=== PATIENT | male | born 1945 | race African-American/Black ===

== ENCOUNTER 2017-09-07 18:23 | Inpatient (IN) | payer MEDICAID, MEDICARE, OTHER ==
[~2017-09-07] VITALS: Ht 165.1 cm; Wt 65.3 kg
[~2017-09-07 18:23] MED LIST: ASPIRIN EC81 MG PO; CRESTOR10 M2 ORAL; DETROL LA2 MG PO; FOLIC ACID1 MG ORAL; ISENTRESS400 MG ORAL; LISINOPRIL10 MG ORAL; LORAZEPAM0.5 MG ORAL; MAGNESIUM OXID400 M1 ORAL; METOPROLOL SUCC50 MG ORAL; MULTI-VITAMIN1 EACH PO; PEPCID20 MG ORAL; POTASSIUM CHLO20 ME1 ORAL; POTASSIUM CHLO20 ME3 PO; VALIUM5 MG PO; VIRAMUNE XR400 MG PO; VITAMIN D3 1,01 EACH PO
[2017-09-07 18:43] VITALS: BP 129/91
[2017-09-07 19:18] LABS: APPEARANCE,URINE CLEAR; BILIRUBIN, URINE NEGATIVE (NEGATIVE); COLOR,URINE PALE YELLOW; GLUCOSE, URINE (UA) NEGATIVE (NEGATIVE); KETONES,URINE NEGATIVE (NEGATIVE); LEUKOCYTE ESTERASE ,URINE NEGATIVE (NEGATIVE); NITRITE,URINE NEGATIVE (NEGATIVE); PH,URINE 6 (4.5-8.0); PROTEIN,URINE NEGATIVE (NEGATIVE); UROBILINOGEN,URINE NORMAL MG/DL (0.0-1.0)
[2017-09-07 19:35] LABS: ANION GAP 13 mmol/L (5-15); BLOOD UREA NITROGEN 21 mg/dL (7-18); CALCIUM 8.8 MG/DL (8.5-10.1); CARBON DIOXIDE 20 MMOL/L (21-32); CHLORIDE 97 MMOL/L (98-107); CREATININE 1.5 MG/DL (0.55-1.30); POTASSIUM 3.5 MMOL/L (3.5-5.1); SODIUM 130 MMOL/L (136-145)
[2017-09-07 19:50] LABS: ALANINE AMINOTRANSFERASE 33 U/L (12-78); ALBUMIN 3.4 G/DL (3.4-5.0); ALBUMIN/GLOBULIN RATIO 1.2 (1.0-2.7); ALKALINE PHOSPHATASE 85 U/L (46-116); ASPARTATE AMINO TRANSFERASE 54 U/L (15-37); BILIRUBIN,TOTAL 0.4 MG/DL (0.2-1.0); CKMB 0.8 NG/ML (0.0-3.6); CREATINE KINASE 80 U/L (26-308)
[2017-09-07 19:58] LABS: HEMATOCRIT 28.8 % (42.0-52.0); LYMPHOCYTES % (AUTO) 30.3 % (20.0-45.0); MEAN CORPUSCULAR VOLUME 98 FL (80-99); MONOCYTES % (AUTO) 8.8 % (1.0-10.0); PLATELET COUNT 147 K/UL (150-450); RED BLOOD COUNT 2.94 M/UL (4.70-6.10); RED CELL DISTRIBUTION WIDTH 16.9 % (11.6-14.8); WHITE BLOOD COUNT 6.9 K/UL (4.8-10.8)
[2017-09-07] MEDS ORDERED: VITAMIN D1000 UNI1 PO (20:25)
[2017-09-07] MEDS ORDERED: METOPROLOL SUCC25 MG PO (20:25)
[2017-09-07] MEDS ORDERED: HYDROCHLOROTHIA25 MG ORAL (20:25)
[2017-09-07] MEDS ORDERED: MULTIVITAMINS1 EA14 PO (20:39)
--- NOTE | 2017-09-07 22:04 | Emergency Room Report ---
History of Present Illness General Chief Complaint: Dizziness Source: Patient Present Illness HPI 72-year-old male presents ED for evaluation. Patient brought in by EMS. Patient states he's been feeling dizzy for the last several days. Also feels weak. States she's been vomiting and having diarrhea. Per EMS blood pressure was low, orthostatic. Given IV hydration. Patient has history of HIV. States he is compliant with his medications. Denies headache. Denies chest pain or shortness of breath. Denies sick contacts or recent travel. No other aggravating relieving factors. Denies any other associated symptoms Allergies: Coded Allergies: PENICILLINS (Unverified Allergy, Unknown, 04/03/14) Patient History Past Medical History: HTN Past Surgical History: none Pertinent Family History: none Social History: Denies: smoking, alcohol use, drug use Immunizations: UTD Reviewed Nursing Documentation: PMH: Agreed; PSxH: Agreed Nursing Documentation-PMH Past Medical History: No History, Except For Hx Cardiac Problems: Yes - high cholesterol Hx Hypertension: Yes Hx Cancer: No Hx Gastrointestinal Problems: No Hx Neurological Problems: No Review of Systems All Other Systems: negative except mentioned in HPI Physical Exam Vital Signs Date Time Temp Pulse Resp B/P (MAP) Pulse Ox O2 Delivery O2 Flow Rate FiO2 09/07/17 18:20 98.1 112 18 123/72 98 Room Air 98.1 Sp02 EP Interpretation: reviewed, normal General Appearance: no apparent distress, alert, GCS 15, non-toxic Head: normocephalic, atraumatic Eyes: bilateral eye normal inspection, bilateral eye PERRL ENT: hearing grossly normal, normal pharynx, no angioedema, normal voice Neck: full range of motion, supple/symm/no masses Respiratory: chest non-tender, lungs clear, normal breath sounds, speaking full sentences Cardiovascular #1: regular rate, rhythm, no edema Cardiovascular #2: 2+ carotid (R), 2+ carotid (L), 2+ radial (R), 2+ radial (L) , 2+ dorsalis pedis (R), 2+ dorsalis pedis (L) Gastrointestinal: normal bowel sounds, non tender, soft, non-distended, no guarding, no rebound Rectal: deferred Genitourinary: normal inspection, no CVA tenderness Musculoskeletal: back normal, gait/station normal, normal range of motion, non- tender Neurologic: alert, oriented x3, responsive, motor strength/tone normal, sensory intact, speech normal Psychiatric: judgement/insight normal, memory normal, mood/affect normal, no suicidal/homicidal ideation Reflexes: 3+ bicep (R), 3+ bicep (L), 3+ tricep (R), 3+ tricep (L), 3+ knee (R) , 3+ knee (L) Skin: normal color, no rash, warm/dry, well hydrated Lymphatic: no adenopathy Medical Decision Making Diagnostic Impression: Primary Impression: Dizziness Additional Impressions: Hyponatremia Renal insufficiency ER Course Hospital Course 72-year-old male presents ED complaining of weakness, dizziness, vomtiing, diarrhea differential diagnosis: UTI, dehydration, anemia Clinical course Patient placed on stretcher. On cardiac monitor technician. After initial history and physical I ordered labs, IV fluids, EKG, CXR Labs - no leukocytosis, Na 130, Cr 1.5, trop negative EKG - NSR, no acute ischemic changes interpreted by me CXR no acute process Patient states he does feel better but still feels weak. Given age and comorbidities we will admit for IV hydration patient admitted to Dr Marshall I feel this is a highly complex case requiring extensive working including EKG/ Rhythm strip, Xray/CT/US, Blood/urine lab work, repeat exams while in ED, and administration of strong opiates/narcotics for pain control, admission to hospital or close patient follow up. Diagnosis - dizziness, hyponatremia, renal insufficiency admitted to floor in serious condition Labs Test 09/07/17 18:55 09/07/17 19:45 Urine Color Pale yellow Urine Appearance Clear Urine pH 6 (4.5-8.0) Urine Specific [place] 1.005 (1.005-1.035) Urine Protein Negative (NEGATIVE) Urine Glucose (UA) Negative (NEGATIVE) Urine Ketones Negative (NEGATIVE) Urine Occult Blood Negative (NEGATIVE) Urine Nitrite Negative (NEGATIVE) Urine Bilirubin Negative (NEGATIVE) Urine Urobilinogen Normal MG/DL (0.0-1.0) Urine Leukocyte Esterase Negative (NEGATIVE) Sodium Level 130 MMOL/L (136-145) Potassium Level 3.5 MMOL/L (3.5-5.1) Chloride Level 97 MMOL/L (98-107) Carbon Dioxide Level 20 MMOL/L (21-32) Anion Gap 13 mmol/L (5-15) Blood Urea Nitrogen 21 mg/dL (7-18) Creatinine 1.5 MG/DL (0.55-1.30) Estimat Glomerular Filtration Rate 56.1 mL/min (>60) Glucose Level 97 MG/DL (74-106) Calcium Level 8.8 MG/DL (8.5-10.1) Total Bilirubin 0.4 MG/DL (0.2-1.0) Aspartate Amino Transf (AST/SGOT) 54 U/L (15-37) Alanine Aminotransferase (ALT/SGPT) 33 U/L (12-78) Alkaline Phosphatase 85 U/L (46-116) Total Creatine Kinase 80 U/L (26-308) Creatine Kinase MB 0.8 NG/ML (0.0-3.6) Creatine Kinase MB Relative Index 1.0 Troponin I 0.000 ng/mL (0.000-0.056) Pro-B-Type Natriuretic Peptide 24 pg/mL (0-125) Total Protein 6.3 G/DL (6.4-8.2) Albumin 3.4 G/DL (3.4-5.0) Globulin 2.9 g/dL Albumin/Globulin Ratio 1.2 (1.0-2.7) White Blood Count 6.9 K/UL (4.8-10.8) Red Blood Count 2.94 M/UL (4.70-6.10) Hemoglobin 10.0 G/DL (14.2-18.0) Hematocrit 28.8 % (42.0-52.0) Mean Corpuscular Volume 98 FL (80-99) Mean Corpuscular Hemoglobin 33.9 PG (27.0-31.0) Mean Corpuscular Hemoglobin Concent 34.5 G/DL (32.0-36.0) Red Cell Distribution Width 16.9 % (11.6-14.8) Platelet Count 147 K/UL (150-450) Mean Platelet Volume 7.1 FL (6.5-10.1) Neutrophils (%) (Auto) 56.0 % (45.0-75.0) Lymphocytes (%) (Auto) 30.3 % (20.0-45.0) Monocytes (%) (Auto) 8.8 % (1.0-10.0) Eosinophils (%) (Auto) 4.0 % (0.0-3.0) Basophils (%) (Auto) 1.0 % (0.0-2.0) EKG Diagnostic Results Rate: normal Rhythm: NSR ST Segments: no acute changes ASA given to the pt in ED: No Rhythm Strip Diag. Results EP Interpretation: yes Rhythm: NSR, no PVC's, no ectopy Chest X-Ray Diagnostic Results Chest X-Ray Diagnostic Results : Chest X-Ray Ordered: Yes # of Views/Limited/Complete: 1 View Indication: Other - dizziness EP Interpretation: Yes Interpretation: no consolidation, no effusion, no pneumothorax, no acute cardiopulmonary disease Impression: No acute disease Electronically Signed by: Electronically signed by Tyree Perdomo MD Last Vital Signs Date Time Temp Pulse Resp B/P (MAP) Pulse Ox O2 Delivery O2 Flow Rate FiO2 09/07/17 18:43 98.1 100 18 129/91 99 Room Air 98.1 Status: improved Disposition: ADMITTED INPATIENT Condition: Serious Referrals: NON PHYSICIAN (PCP) Tyree Perdomo MD Sep 07, 2017 22:04
[2017-09-07] MEDS ORDERED: D5 1/2NS 1,000 ML IV SCH (22:09)
[2017-09-07] MEDS ORDERED: Metoclopramide 10mg/2ml Inj IVP PRN (22:15)
[2017-09-07] MEDS ORDERED: Nitroglycerin Subl 0.4mg tab SL PRN (22:15)
[2017-09-07] MEDS ORDERED: Miralax 17gm pkt ORAL PRN (22:15)
[2017-09-07] MEDS ORDERED: Promethazine HCl 12.5 MG in NS 55 ML IV PRN (22:15)
[2017-09-07] MEDS ORDERED: Promethazine HCl 25 MG in NS 55 ML IV PRN (22:15)
[2017-09-07] MEDS ORDERED: LORazepam Inj 2mg/ml 1ml IV PRN (22:15)
[2017-09-07 22:35] VITALS: BP 117/66
[2017-09-07] MEDS ORDERED: Morphine Sulfate 4mg/ml Inj IVP PRN (22:45)
[2017-09-08] MEDS: Heparin 5000 units/ml inj SUBQ SCH ×3 (00:24→21:00)
[2017-09-08 02:35] VITALS: BP 95/54
[2017-09-08 03:01] LABS: APPEARANCE,URINE CLEAR; BILIRUBIN, URINE NEGATIVE (NEGATIVE); COLOR,URINE PALE YELLOW; GLUCOSE, URINE (UA) NEGATIVE (NEGATIVE); KETONES,URINE NEGATIVE (NEGATIVE); LEUKOCYTE ESTERASE ,URINE NEGATIVE (NEGATIVE); NITRITE,URINE NEGATIVE (NEGATIVE); PH,URINE 6 (4.5-8.0); PROTEIN,URINE NEGATIVE (NEGATIVE); UROBILINOGEN,URINE NORMAL MG/DL (0.0-1.0)
[2017-09-08 06:38] LABS: BASOPHILS % (AUTO) 1.2 % (0.0-2.0); EOSINOPHILS % (AUTO) 4.4 % (0.0-3.0); HEMATOCRIT 29.9 % (42.0-52.0); HEMOGLOBIN 9.6 G/DL (14.2-18.0); LYMPHOCYTES % (AUTO) 31.7 % (20.0-45.0); MEAN CORPUSCULAR VOLUME 100 FL (80-99); MONOCYTES % (AUTO) 9.6 % (1.0-10.0); NEUTROPHILS % (AUTO) 53.1 % (45.0-75.0); PLATELET COUNT 153 K/UL (150-450); RED BLOOD COUNT 2.98 M/UL (4.70-6.10); RED CELL DISTRIBUTION WIDTH 17.3 % (11.6-14.8); WHITE BLOOD COUNT 5.3 K/UL (4.8-10.8)
[2017-09-08 06:46] LABS: INR 1.1 (0.9-1.1)
[2017-09-08 07:12] LABS: ALANINE AMINOTRANSFERASE 27 U/L (12-78); ALBUMIN 3.2 G/DL (3.4-5.0); ALBUMIN/GLOBULIN RATIO 1.1 (1.0-2.7); ALKALINE PHOSPHATASE 81 U/L (46-116); AMYLASE 155 U/L (25-115); ASPARTATE AMINO TRANSFERASE 45 U/L (15-37); BILIRUBIN,TOTAL 0.6 MG/DL (0.2-1.0); BLOOD UREA NITROGEN 15 mg/dL (7-18); CARBON DIOXIDE 23 MMOL/L (21-32); CREATININE 1.3 MG/DL (0.55-1.30); LACTATE DEHYDROGENASE 160 U/L (81-234)
[2017-09-08 07:47] LABS: % IRON SATURATION 76 % (15-50); IRON 143 ug/dL (50-175); TOTAL IRON BINDING CAPACITY 189 ug/dL (250-450)
[2017-09-08 07:49] LABS: CHLORIDE 103 MMOL/L (98-107); POTASSIUM 3.5 MMOL/L (3.5-5.1); SODIUM 136 MMOL/L (136-145)
[2017-09-08 08:46] VITALS: BP 114/66
[2017-09-08] MEDS ORDERED: DiphenhydrAMINE 50mg/ml Inj IVP PRN (09:00)
[2017-09-08] MEDS: Metoprolol Succinate XL 25mg tab ORAL SCH (09:18)
[2017-09-08] MEDS: Pantoprazole Inj IV SCH (09:18)
--- NOTE | 2017-09-08 11:02 | Diagnostic Imaging Report ---
Indication: Shortness of breath Technique: One view of the chest Comparison: 06/11/2014 Findings: There is perihilar bronchial wall thickening again demonstrated. Lungs and pleural spaces are otherwise clear. Heart size is normal. The aorta is tortuous. No significant change Impression: No acute process
[2017-09-08 12:00] VITALS: BP 106/63
[2017-09-08] MEDS ORDERED: NEVIRAPINE 400 MG ORAL ONE (13:00)
--- NOTE | 2017-09-08 13:08 | Consultation ---
History of Present Illness General Date patient seen: Sep 08, 2017 Chief Complaint: Dizziness Present Illness HPI 72-year-old male with hx of HIV presented to ED for evaluation of dizziness for the last several days. Also feels weak. States she's been vomiting and having diarrhea. Per EMS blood pressure was low, orthostatic. Given IV hydration. . Denies headache. Denies any other associated symptoms. Pt was found to be in renal failure and admitted to med/surg for further work up. Allergies: Coded Allergies: PENICILLINS (Unverified Allergy, Unknown, 04/03/14) Medication History Scheduled Aspirin Ec* (Aspirin Ec*), 81 MG PO DAILY, (Reported) Cholecalciferol (Vitamin D3)* (Vitamin D*), 1,000 UNIT PO DAILY, (Reported) Famotidine (Pepcid), 20 MG ORAL BEDTIME, (Reported) Folic Acid* (Folic Acid*), 1 MG ORAL DAILY, (Reported) Hydrochlorothiazide* (Hydrochlorothiazide*), 25 MG ORAL DAILY, (Reported) Lisinopril* (Lisinopril*), 10 MG ORAL DAILY, (Reported) Lorazepam* (Lorazepam*), 0.5 MG ORAL THREE TIMES A DAY, (Reported) Magnesium Oxide (Magnesium Oxide), 400 MG ORAL BID Metoprolol Succinate* (Metoprolol Succinate*), 25 MG PO DAILY, (Reported) Nevirapine (Viramune Xr), 400 MG PO DAILY, (Reported) Potassium Chloride (Potassium Chloride), 20 MEQ PO DAILY Potassium Chloride* (K-Dur*), 20 MEQ ORAL HS, (Reported) Raltegravir (Isentress), 400 MG ORAL EVERY 12 HOURS, (Reported) Rosuvastatin Calcium* (Crestor*), 20 MG ORAL DAILY, (Reported) Miscellaneous Medications Multivitamin (Multivitamins), 1 EACH PO, (Reported) Discontinued Medications Ca Cmb No.1/Vit D3/B-6/Fa/B12 (Vitamin D3 1,000 Unit Tablet), 1 EACH PO DAILY, ( Reported) Discontinued Reason: Prescription changed Metoprolol Succinate* (Metoprolol Succinate*), 50 MG ORAL DAILY, (Reported) Discontinued Reason: Pt stopped taking med Patient History Healthcare decision maker Resuscitation status Full Code Advanced Directive on File No Past Medical/Surgical History Past Medical/Surgical History: (1) Hypertension (2) HIV disease Review of Systems All Other Systems: negative except mentioned in HPI Physical Exam General Appearance: WD/WN Lines, tubes and drains: peripheral HEENT: normocephalic, atraumatic Neck: non-tender, normal alignment Respiratory/Chest: chest wall non-tender, lungs clear Breasts: no masses Cardiovascular/Chest: normal peripheral pulses, normal rate Abdomen: normal bowel sounds Genitourinary/Rectal: normal genital exam Extremities: normal range of motion Last 24 Hour Vital Signs Date Time Temp Pulse Resp B/P (MAP) Pulse Ox O2 Delivery O2 Flow Rate FiO2 09/08/17 12:00 97.9 77 18 106/63 96 Room Air 97.9 09/08/17 09:18 82 114/66 09/08/17 08:46 97.9 82 18 114/66 96 97.9 09/08/17 02:35 98.4 92 17 95/54 100 98.4 09/07/17 22:35 98.1 92 13 117/66 98 Room Air 98.1 09/07/17 22:35 98.1 92 13 117/66 98 Room Air 208.6 09/07/17 18:43 98.1 100 18 129/91 99 Room Air 98.1 09/07/17 18:20 98.1 112 18 123/72 98 Room Air 98.1 Intake and Output 09/07/17 09/08/17 19:00 07:00 Output Total 525 ml Balance -525 ml Output Urine Total 525 ml # Voids 1 3 # Bowel Movements 1 Laboratory Tests Test 09/07/17 18:55 09/07/17 19:45 09/08/17 00:30 09/08/17 04:30 Urine Color Pale yellow Pale yellow Urine Appearance Clear Clear Urine pH 6 (4.5-8.0) 6 (4.5-8.0) Urine Specific [place] 1.005 (1.005-1.035) 1.010 (1.005-1.035) Urine Protein Negative (NEGATIVE) Negative (NEGATIVE) Urine Glucose (UA) Negative (NEGATIVE) Negative (NEGATIVE) Urine Ketones Negative (NEGATIVE) Negative (NEGATIVE) Urine Occult Blood Negative (NEGATIVE) Negative (NEGATIVE) Urine Nitrite Negative (NEGATIVE) Negative (NEGATIVE) Urine Bilirubin Negative (NEGATIVE) Negative (NEGATIVE) Urine Urobilinogen Normal MG/DL (0.0-1.0) Normal MG/DL (0.0-1.0) Urine Leukocyte Esterase Negative (NEGATIVE) Negative (NEGATIVE) Sodium Level 130 MMOL/L (136-145) L Potassium Level 3.5 MMOL/L (3.5-5.1) Chloride Level 97 MMOL/L (98-107) L Carbon Dioxide Level 20 MMOL/L (21-32) L Anion Gap 13 mmol/L (5-15) Blood Urea Nitrogen 21 mg/dL (7-18) H Creatinine 1.5 MG/DL (0.55-1.30) H Estimat Glomerular Filtration Rate 56.1 mL/min (>60) Glucose Level 97 MG/DL (74-106) Uric Acid 8.4 MG/DL (2.6-7.2) H Calcium Level 8.8 MG/DL (8.5-10.1) Total Bilirubin 0.4 MG/DL (0.2-1.0) Aspartate Amino Transf (AST/SGOT) 54 U/L (15-37) H Alanine Aminotransferase (ALT/SGPT) 33 U/L (12-78) Alkaline Phosphatase 85 U/L (46-116) Total Creatine Kinase 80 U/L (26-308) Creatine Kinase MB 0.8 NG/ML (0.0-3.6) Creatine Kinase MB Relative Index 1.0 Troponin I 0.000 ng/mL (0.000-0.056) Pro-B-Type Natriuretic Peptide 24 pg/mL (0-125) Total Protein 6.3 G/DL (6.4-8.2) L Albumin 3.4 G/DL (3.4-5.0) Globulin 2.9 g/dL Albumin/Globulin Ratio 1.2 (1.0-2.7) White Blood Count 6.9 K/UL (4.8-10.8) Red Blood Count 2.94 M/UL (4.70-6.10) L Hemoglobin 10.0 G/DL (14.2-18.0) L Hematocrit 28.8 % (42.0-52.0) L Mean Corpuscular Volume 98 FL (80-99) Mean Corpuscular Hemoglobin 33.9 PG (27.0-31.0) H Mean Corpuscular Hemoglobin Concent 34.5 G/DL (32.0-36.0) Red Cell Distribution Width 16.9 % (11.6-14.8) H Platelet Count 147 K/UL (150-450) L Mean Platelet Volume 7.1 FL (6.5-10.1) Neutrophils (%) (Auto) 56.0 % (45.0-75.0) Lymphocytes (%) (Auto) 30.3 % (20.0-45.0) Monocytes (%) (Auto) 8.8 % (1.0-10.0) Eosinophils (%) (Auto) 4.0 % (0.0-3.0) H Basophils (%) (Auto) 1.0 % (0.0-2.0) Urine RBC 0-2 /HPF (0 - 0) H Urine WBC 0 /HPF (0 - 0) Urine Squamous Epithelial Cells None /LPF (NONE/OCC) Urine Bacteria None /HPF (NONE) Urine Eosinophils None seen Urine Random Sodium 76 mmol/L (20-110) Urine Potassium Timed 23 mmol/L (12-62) Stool Occult Blood Negative (NEGATIVE) Test 09/08/17 06:05 White Blood Count 5.3 K/UL (4.8-10.8) Red Blood Count 2.98 M/UL (4.70-6.10) L Hemoglobin 9.6 G/DL (14.2-18.0) L Hematocrit 29.9 % (42.0-52.0) L Mean Corpuscular Volume 100 FL (80-99) H Mean Corpuscular Hemoglobin 32.3 PG (27.0-31.0) H Mean Corpuscular Hemoglobin Concent 32.2 G/DL (32.0-36.0) Red Cell Distribution Width 17.3 % (11.6-14.8) H Platelet Count 153 K/UL (150-450) Mean Platelet Volume 7.1 FL (6.5-10.1) Neutrophils (%) (Auto) 53.1 % (45.0-75.0) Lymphocytes (%) (Auto) 31.7 % (20.0-45.0) Monocytes (%) (Auto) 9.6 % (1.0-10.0) Eosinophils (%) (Auto) 4.4 % (0.0-3.0) H Basophils (%) (Auto) 1.2 % (0.0-2.0) Erythrocyte Sedimentation Rate 11 MM/HR (0-20) Reticulocyte Count 1.1 % (0.0-2.0) Prothrombin Time 11.2 SEC (9.30-11.50) Prothromb Time International Ratio 1.1 (0.9-1.1) Activated Partial Thromboplast Time 30 SEC (23-33) Sodium Level 136 MMOL/L (136-145) Potassium Level 3.5 MMOL/L (3.5-5.1) Chloride Level 103 MMOL/L (98-107) Carbon Dioxide Level 23 MMOL/L (21-32) Blood Urea Nitrogen 15 mg/dL (7-18) Creatinine 1.3 MG/DL (0.55-1.30) Estimat Glomerular Filtration Rate > 60 mL/min (>60) Glucose Level 104 MG/DL (74-106) Calcium Level 8.0 MG/DL (8.5-10.1) L Iron Level 143 ug/dL (50-175) Total Iron Binding Capacity 189 ug/dL (250-450) L Percent Iron Saturation 76 % (15-50) H Unsaturated Iron Binding 46 ug/dL (112-346) L Total Bilirubin 0.6 MG/DL (0.2-1.0) Aspartate Amino Transf (AST/SGOT) 45 U/L (15-37) H Alanine Aminotransferase (ALT/SGPT) 27 U/L (12-78) Alkaline Phosphatase 81 U/L (46-116) Lactate Dehydrogenase 160 U/L (81-234) Total Protein 6.1 G/DL (6.4-8.2) L Albumin 3.2 G/DL (3.4-5.0) L Globulin 2.9 g/dL Albumin/Globulin Ratio 1.1 (1.0-2.7) Amylase Level 155 U/L (25-115) H Lipase > 2000 U/L (73-393) H Carcinoembryonic Antigen Pending Vitamin B12 Level 195 PG/ML (193-986) Folate 19.0 NG/ML (8.6-58.9) Height (Feet): 5 Height (Inches): 5.00 Weight (Pounds): 144 Medications Current Medications Medications (Trade) Dose Ordered Sig/Robert Route PRN Reason Start Time Stop Time Status Last Admin Dose Admin Acetaminophen (Tylenol) 650 mg Q4H PRN ORAL fever 09/07/17 22:15 10/07/17 22:14 Dextrose (Dextrose 50%) 25 ml STAT PRN IV Hypoglycemia 09/08/17 09:15 10/07/17 22:14 Dextrose (Dextrose 50%) 50 ml STAT PRN IV Hypoglycemia 09/08/17 09:15 10/08/17 09:14 Diphenhydramine HCl (Benadryl) 25 mg Q6H PRN IVP Itching 09/08/17 09:00 10/08/17 08:59 Diphenhydramine HCl (Benadryl) 25 mg Q6H PRN ORAL Itching/Pruritis 09/07/17 22:15 10/07/17 22:14 Heparin Sodium (Porcine) (Heparin 5000 units/ml) 5,000 units EVERY 12 HOURS SUBQ 09/07/17 22:36 10/07/17 22:35 09/08/17 09:19 Lorazepam (Ativan 2mg/ml 1ml) 1 mg EVERY 4 HOURS PRN IV agitation 09/07/17 22:15 09/14/17 22:14 Metoclopramide HCl (Reglan) 10 mg EVERY 6 HOURS PRN IVP servere n[place]ase[place] 09/07/17 22:15 10/07/17 22:14 Metoprolol Succinate (Toprol XL) 25 mg DAILY ORAL 09/08/17 09:00 10/08/17 08:59 09/08/17 09:18 Morphine Sulfate (Morphine Sulfate) 2 mg Q4H PRN IVP severe pain (7-10) 09/07/17 22:45 09/14/17 22:44 Nitroglycerin (Ntg) 0.4 mg Q5M X 3 DOSES PRN SL Prn Chest Pain 09/07/17 22:15 10/07/17 22:14 Non-Formulary Medication (Non-Formulary Med) 1 ea DAILY ORAL 09/09/17 09:00 10/09/17 08:59 UNV Ondansetron HCl (Zofran) 4 mg Q6H PRN IVP Nausea & Vomiting 09/07/17 22:15 10/07/17 22:14 Pantoprazole (Protonix) 40 mg DAILY IV 09/08/17 09:00 10/08/17 08:59 09/08/17 09:18 Polyethylene Glycol (Miralax) 17 gm HSPRN PRN ORAL Constipation 09/07/17 22:15 10/07/17 22:14 Promethazine HCl 12.5 mg/Sodium Chloride 55.5 ml @ 110 mls/hr Q6H PRN IV Refractory N/V 09/07/17 22:15 10/07/17 22:14 Raltegravir (Isentress) 400 mg EVERY 12 HOURS ORAL 09/08/17 21:00 10/08/17 20:59 Sodium Chloride 1,000 ml @ 100 mls/hr Q10H IV 09/08/17 09:30 10/07/17 09:29 09/08/17 09:30 Temazepam (Restoril) 15 mg HSPRN PRN ORAL Insomnia 09/07/17 22:15 09/14/17 22:14 09/08/17 00:21 Assessment/Plan Problem List: (1) Intractable diarrhea ICD Codes: R19.7 - Diarrhea, unspecified SNOMED: 311143438 (2) Hypotension ICD Codes: I95.9 - Hypotension, unspecified SNOMED: 85139139 (3) ATN (acute tubular necrosis) ICD Codes: N17.0 - Acute kidney failure with tubular necrosis SNOMED: 62970736 (4) HIV disease ICD Codes: B20 - Human immunodeficiency virus [HIV] disease SNOMED: 95092069 (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 Deborah Shelby MD Sep 08, 2017 13:08
--- NOTE | 2017-09-08 14:29 | Diagnostic Imaging Report ---
Indication: . Abdominal pain, markedly elevated lipase, abnormal liver function tests, abnormal renal function tests Technique: Russ-scale and duplex images of the upper abdomen were obtained. Grayscale duplex images of the kidneys, retroperitoneum, bladder Comparison: none Findings: Gallbladder demonstrates nonmobile nonshadowing echogenic intraluminal foci measuring under 1 cm. No gallbladder wall thickening or pericholecystic fluid. Sonographic Ulloa's sign is negative. Common bile duct measures 5 mm in diameter. No intrahepatic biliary ductal dilatation. Liver demonstrates normal echogenicity, no focal abnormality. Portal vein and hepatic veins are patent. Pancreas is unremarkable. Spleen is unremarkable. Left kidney measures 9.6 cm in length. Right kidney measures 9.6 cm length. Both kidneys demonstrate normal echogenicity. There is no hydronephrosis. Small cysts are seen in the left kidney. Unremarkable bladder. Calculated prostate volume is 10 mL. Non-aneurysmal abdominal aorta . Unremarkable inferior vena cava. Impression: Nonmobile nonshadowing echogenic gallbladder intraluminal foci, probably small polyps, less likely wall adherent stones Negative for dilated ducts. Incidental finding of left renal cysts
--- NOTE | 2017-09-08 14:32 | Consultation ---
History of Present Illness General Date patient seen: Sep 08, 2017 Chief Complaint: Dizziness Present Illness HPI 72 y/o M of HIV well controlled on ARV , HTN, HLD presents to ED on 09/07 with several days of dizziness, weakness, vomiting and diarrhea. Orthostatic hypotension noted by EMS which resolved with IV hydration. In ED found to be in renal failure/ Denied MCGRATH,SOB, CP, sick contacts, recent travel Allergies: Coded Allergies: PENICILLINS (Unverified Allergy, Unknown, 04/03/14) Medication History Scheduled Aspirin Ec* (Aspirin Ec*), 81 MG PO DAILY, (Reported) Cholecalciferol (Vitamin D3)* (Vitamin D*), 1,000 UNIT PO DAILY, (Reported) Famotidine (Pepcid), 20 MG ORAL BEDTIME, (Reported) Folic Acid* (Folic Acid*), 1 MG ORAL DAILY, (Reported) Hydrochlorothiazide* (Hydrochlorothiazide*), 25 MG ORAL DAILY, (Reported) Lisinopril* (Lisinopril*), 10 MG ORAL DAILY, (Reported) Lorazepam* (Lorazepam*), 0.5 MG ORAL THREE TIMES A DAY, (Reported) Magnesium Oxide (Magnesium Oxide), 400 MG ORAL BID Metoprolol Succinate* (Metoprolol Succinate*), 25 MG PO DAILY, (Reported) Nevirapine (Viramune Xr), 400 MG PO DAILY, (Reported) Potassium Chloride (Potassium Chloride), 20 MEQ PO DAILY Potassium Chloride* (K-Dur*), 20 MEQ ORAL HS, (Reported) Raltegravir (Isentress), 400 MG ORAL EVERY 12 HOURS, (Reported) Rosuvastatin Calcium* (Crestor*), 20 MG ORAL DAILY, (Reported) Miscellaneous Medications Multivitamin (Multivitamins), 1 EACH PO, (Reported) Discontinued Medications Ca Cmb No.1/Vit D3/B-6/Fa/B12 (Vitamin D3 1,000 Unit Tablet), 1 EACH PO DAILY, ( Reported) Discontinued Reason: Prescription changed Metoprolol Succinate* (Metoprolol Succinate*), 50 MG ORAL DAILY, (Reported) Discontinued Reason: Pt stopped taking med Patient History Healthcare decision maker Resuscitation status Full Code Advanced Directive on File No Patient History Narrative Pmhx: as above Shx: Denies: smoking, alcohol use, drug use Fhx: non contributory Review of Systems All Other Systems: negative except mentioned in HPI Physical Exam Physical Exam Narrative General Appearance: WD/WN Lines, tubes and drains: peripheral HEENT: normocephalic, atraumatic Neck: non-tender, normal alignment Respiratory/Chest: chest wall non-tender, lungs clear Breasts: no masses Cardiovascular/Chest: normal peripheral pulses, normal rate Abdomen: normal bowel sounds Genitourinary/Rectal: normal genital exam Extremities: normal range of motion Last 24 Hour Vital Signs Date Time Temp Pulse Resp B/P (MAP) Pulse Ox O2 Delivery O2 Flow Rate FiO2 09/08/17 12:00 97.9 77 18 106/63 96 Room Air 97.9 09/08/17 09:18 82 114/66 09/08/17 08:46 97.9 82 18 114/66 96 97.9 09/08/17 02:35 98.4 92 17 95/54 100 98.4 09/07/17 22:35 98.1 92 13 117/66 98 Room Air 98.1 09/07/17 22:35 98.1 92 13 117/66 98 Room Air 208.6 09/07/17 18:43 98.1 100 18 129/91 99 Room Air 98.1 09/07/17 18:20 98.1 112 18 123/72 98 Room Air 98.1 Intake and Output 09/07/17 09/08/17 19:00 07:00 Output Total 525 ml Balance -525 ml Output Urine Total 525 ml # Voids 1 3 # Bowel Movements 1 Laboratory Tests Test 09/07/17 18:55 09/07/17 19:45 09/08/17 00:30 09/08/17 04:30 Urine Color Pale yellow Pale yellow Urine Appearance Clear Clear Urine pH 6 (4.5-8.0) 6 (4.5-8.0) Urine Specific [place] 1.005 (1.005-1.035) 1.010 (1.005-1.035) Urine Protein Negative (NEGATIVE) Negative (NEGATIVE) Urine Glucose (UA) Negative (NEGATIVE) Negative (NEGATIVE) Urine Ketones Negative (NEGATIVE) Negative (NEGATIVE) Urine Occult Blood Negative (NEGATIVE) Negative (NEGATIVE) Urine Nitrite Negative (NEGATIVE) Negative (NEGATIVE) Urine Bilirubin Negative (NEGATIVE) Negative (NEGATIVE) Urine Urobilinogen Normal MG/DL (0.0-1.0) Normal MG/DL (0.0-1.0) Urine Leukocyte Esterase Negative (NEGATIVE) Negative (NEGATIVE) Sodium Level 130 MMOL/L (136-145) L Potassium Level 3.5 MMOL/L (3.5-5.1) Chloride Level 97 MMOL/L (98-107) L Carbon Dioxide Level 20 MMOL/L (21-32) L Anion Gap 13 mmol/L (5-15) Blood Urea Nitrogen 21 mg/dL (7-18) H Creatinine 1.5 MG/DL (0.55-1.30) H Estimat Glomerular Filtration Rate 56.1 mL/min (>60) Glucose Level 97 MG/DL (74-106) Uric Acid 8.4 MG/DL (2.6-7.2) H Calcium Level 8.8 MG/DL (8.5-10.1) Total Bilirubin 0.4 MG/DL (0.2-1.0) Aspartate Amino Transf (AST/SGOT) 54 U/L (15-37) H Alanine Aminotransferase (ALT/SGPT) 33 U/L (12-78) Alkaline Phosphatase 85 U/L (46-116) Total Creatine Kinase 80 U/L (26-308) Creatine Kinase MB 0.8 NG/ML (0.0-3.6) Creatine Kinase MB Relative Index 1.0 Troponin I 0.000 ng/mL (0.000-0.056) Pro-B-Type Natriuretic Peptide 24 pg/mL (0-125) Total Protein 6.3 G/DL (6.4-8.2) L Albumin 3.4 G/DL (3.4-5.0) Globulin 2.9 g/dL Albumin/Globulin Ratio 1.2 (1.0-2.7) White Blood Count 6.9 K/UL (4.8-10.8) Red Blood Count 2.94 M/UL (4.70-6.10) L Hemoglobin 10.0 G/DL (14.2-18.0) L Hematocrit 28.8 % (42.0-52.0) L Mean Corpuscular Volume 98 FL (80-99) Mean Corpuscular Hemoglobin 33.9 PG (27.0-31.0) H Mean Corpuscular Hemoglobin Concent 34.5 G/DL (32.0-36.0) Red Cell Distribution Width 16.9 % (11.6-14.8) H Platelet Count 147 K/UL (150-450) L Mean Platelet Volume 7.1 FL (6.5-10.1) Neutrophils (%) (Auto) 56.0 % (45.0-75.0) Lymphocytes (%) (Auto) 30.3 % (20.0-45.0) Monocytes (%) (Auto) 8.8 % (1.0-10.0) Eosinophils (%) (Auto) 4.0 % (0.0-3.0) H Basophils (%) (Auto) 1.0 % (0.0-2.0) Urine RBC 0-2 /HPF (0 - 0) H Urine WBC 0 /HPF (0 - 0) Urine Squamous Epithelial Cells None /LPF (NONE/OCC) Urine Bacteria None /HPF (NONE) Urine Eosinophils None seen Urine Random Sodium 76 mmol/L (20-110) Urine Potassium Timed 23 mmol/L (12-62) Stool Occult Blood Negative (NEGATIVE) Test 09/08/17 06:05 White Blood Count 5.3 K/UL (4.8-10.8) Red Blood Count 2.98 M/UL (4.70-6.10) L Hemoglobin 9.6 G/DL (14.2-18.0) L Hematocrit 29.9 % (42.0-52.0) L Mean Corpuscular Volume 100 FL (80-99) H Mean Corpuscular Hemoglobin 32.3 PG (27.0-31.0) H Mean Corpuscular Hemoglobin Concent 32.2 G/DL (32.0-36.0) Red Cell Distribution Width 17.3 % (11.6-14.8) H Platelet Count 153 K/UL (150-450) Mean Platelet Volume 7.1 FL (6.5-10.1) Neutrophils (%) (Auto) 53.1 % (45.0-75.0) Lymphocytes (%) (Auto) 31.7 % (20.0-45.0) Monocytes (%) (Auto) 9.6 % (1.0-10.0) Eosinophils (%) (Auto) 4.4 % (0.0-3.0) H Basophils (%) (Auto) 1.2 % (0.0-2.0) Differential Total Cells Counted 100 Neutrophils % (Manual) 55 % (45-75) Lymphocytes % (Manual) 31 % (20-45) Monocytes % (Manual) 9 % (1-10) Eosinophils % (Manual) 4 % (0-3) H Basophils % (Manual) 1 % (0-2) Band Neutrophils 0 % (0-8) Platelet Estimate Adequate Platelet Morphology Normal Hypochromasia 2+ Anisocytosis 1+ Erythrocyte Sedimentation Rate 11 MM/HR (0-20) Reticulocyte Count 1.1 % (0.0-2.0) Prothrombin Time 11.2 SEC (9.30-11.50) Prothromb Time International Ratio 1.1 (0.9-1.1) Activated Partial Thromboplast Time 30 SEC (23-33) Sodium Level 136 MMOL/L (136-145) Potassium Level 3.5 MMOL/L (3.5-5.1) Chloride Level 103 MMOL/L (98-107) Carbon Dioxide Level 23 MMOL/L (21-32) Blood Urea Nitrogen 15 mg/dL (7-18) Creatinine 1.3 MG/DL (0.55-1.30) Estimat Glomerular Filtration Rate > 60 mL/min (>60) Glucose Level 104 MG/DL (74-106) Calcium Level 8.0 MG/DL (8.5-10.1) L Iron Level 143 ug/dL (50-175) Total Iron Binding Capacity 189 ug/dL (250-450) L Percent Iron Saturation 76 % (15-50) H Unsaturated Iron Binding 46 ug/dL (112-346) L Total Bilirubin 0.6 MG/DL (0.2-1.0) Aspartate Amino Transf (AST/SGOT) 45 U/L (15-37) H Alanine Aminotransferase (ALT/SGPT) 27 U/L (12-78) Alkaline Phosphatase 81 U/L (46-116) Lactate Dehydrogenase 160 U/L (81-234) Total Protein 6.1 G/DL (6.4-8.2) L Albumin 3.2 G/DL (3.4-5.0) L Globulin 2.9 g/dL Albumin/Globulin Ratio 1.1 (1.0-2.7) Amylase Level 155 U/L (25-115) H Lipase > 2000 U/L (73-393) H Carcinoembryonic Antigen Pending Vitamin B12 Level 195 PG/ML (193-986) Folate 19.0 NG/ML (8.6-58.9) Height (Feet): 5 Height (Inches): 5.00 Weight (Pounds): 144 Medications Current Medications Medications (Trade) Dose Ordered Sig/Robert Route PRN Reason Start Time Stop Time Status Last Admin Dose Admin Acetaminophen (Tylenol) 650 mg Q4H PRN ORAL fever 09/07/17 22:15 10/07/17 22:14 Dextrose (Dextrose 50%) 25 ml STAT PRN IV Hypoglycemia 09/08/17 09:15 10/07/17 22:14 Dextrose (Dextrose 50%) 50 ml STAT PRN IV Hypoglycemia 09/08/17 09:15 10/08/17 09:14 Diphenhydramine HCl (Benadryl) 25 mg Q6H PRN IVP Itching 09/08/17 09:00 10/08/17 08:59 Diphenhydramine HCl (Benadryl) 25 mg Q6H PRN ORAL Itching/Pruritis 09/07/17 22:15 10/07/17 22:14 Heparin Sodium (Porcine) (Heparin 5000 units/ml) 5,000 units EVERY 12 HOURS SUBQ 09/07/17 22:36 10/07/17 22:35 09/08/17 09:19 Lorazepam (Ativan 2mg/ml 1ml) 1 mg EVERY 4 HOURS PRN IV agitation 09/07/17 22:15 09/14/17 22:14 Metoclopramide HCl (Reglan) 10 mg EVERY 6 HOURS PRN IVP servere nauase[place] 09/07/17 22:15 10/07/17 22:14 Metoprolol Succinate (Toprol XL) 25 mg DAILY ORAL 09/08/17 09:00 10/08/17 08:59 09/08/17 09:18 Morphine Sulfate (Morphine Sulfate) 2 mg Q4H PRN IVP severe pain (7-10) 09/07/17 22:45 09/14/17 22:44 Nitroglycerin (Ntg) 0.4 mg Q5M X 3 DOSES PRN SL Prn Chest Pain 09/07/17 22:15 10/07/17 22:14 Non-Formulary Medication (Non-Formulary Med) 1 ea DAILY ORAL 09/09/17 09:00 10/09/17 08:59 UNV Ondansetron HCl (Zofran) 4 mg Q6H PRN IVP Nausea & Vomiting 09/07/17 22:15 10/07/17 22:14 Pantoprazole (Protonix) 40 mg DAILY IV 09/08/17 09:00 10/08/17 08:59 09/08/17 09:18 Polyethylene Glycol (Miralax) 17 gm HSPRN PRN ORAL Constipation 09/07/17 22:15 10/07/17 22:14 Promethazine HCl 12.5 mg/Sodium Chloride 55.5 ml @ 110 mls/hr Q6H PRN IV Refractory N/V 09/07/17 22:15 10/07/17 22:14 Raltegravir (Isentress) 400 mg EVERY 12 HOURS ORAL 09/08/17 21:00 10/08/17 20:59 Sodium Chloride 1,000 ml @ 100 mls/hr Q10H IV 09/08/17 09:30 10/07/17 09:29 09/08/17 09:30 Temazepam (Restoril) 15 mg HSPRN PRN ORAL Insomnia 09/07/17 22:15 09/14/17 22:14 09/08/17 00:21 Assessment/Plan Assessment/Plan Abx: None ARV : Raltegravir Nevirapine Assessment: Diarrhea/vomiting- resolved- ?viral gastroenteritis vs med related Afebrile, no leukocytosis -u/a neg -CXR: no acute disease Dehydration DAJA, improving Dizziness Orthostatic hypotension HIV- well controlled on dual ARV (confirmed with [facility] pharmacy; per them patient previously on Atripla and VL UD and CD4>1000 on 03/2017) HTN HLD Plan: -Continue to monitor off abx -Check Cdiff, stool cx, CD4 -f/u cx -Monitor CBC/BMP, temperatures -aspiration precautions -Continue ARV as above Thank you for this consultation. Will continue to follow along with you. Discussed with Laura Conrad M.D. Sep 08, 2017 14:32
--- NOTE | 2017-09-08 15:50 | GI Initial Consult Note ---
History of Present Illness General Date patient seen: Sep 08, 2017 Time patient seen: 15:40 Reason for Hospitalization: Dizziness Referring physician: GISELLE WHITNEY Reason for Consultation: PANCREATITIS Present Illness HPI 72-year-old male presents ED for evaluation. Patient brought in by EMS. Patient states he's been feeling dizzy for the last several days. Also feels weak. States she's been vomiting and having diarrhea. Per EMS blood pressure was low, orthostatic. Given IV hydration. Patient has history of HIV. States he is compliant with his medications. Denies headache. Denies chest pain or shortness of breath. Denies sick contacts or recent travel. No other aggravating relieving factors. Denies any other associated symptoms. Gi consulted for pancreatitis. Pt seen, awake NAD with no active N/V/D. No c/ o of abdominal pain at this time. Presents with macrocytic hyperchromic anemia , elevated lipase levels over 1999, electrolyte imbalance, N and V. Unknown history of endoscopy / colonoscopy. Home Meds Active Scripts Magnesium Oxide (MAGNESIUM OXIDE) 400 Mg Tablet, 400 MG ORAL BID, #60 TAB 0 Refills Prov:ADÁN VILLAGOMEZ N.P. 06/14/14 Potassium Chloride (Potassium Chloride) 20 Meq Tablet.er, 20 MEQ PO DAILY, #5 TAB Prov:Adelia Brewer PRODUCTION LINE TECHNICIAN 04/06/14 Reported Medications Multivitamin (Multivitamins) 1 Each Tablet, 1 EACH PO, TAB 09/07/17 Metoprolol Succinate* (METOPROLOL SUCCINATE*) 25 Mg Tab.er.24h, 25 MG PO DAILY 09/07/17 Hydrochlorothiazide* (HYDROCHLOROTHIAZIDE*) 25 Mg Tablet, 25 MG ORAL DAILY, TAB 09/07/17 Cholecalciferol (Vitamin D3)* (VITAMIN D*) 1,000 Unit Tablet, 1000 UNIT PO DAILY 09/07/17 Famotidine (PEPCID) 20 Mg Tablet, 20 MG ORAL BEDTIME, #7 TAB 0 Refills 06/11/14 Raltegravir (Isentress) 400 Mg Tab, 400 MG ORAL EVERY 12 HOURS, TAB 06/11/14 Lorazepam* (LORAZEPAM*) 0.5 Mg Tablet, 0.5 MG ORAL THREE TIMES A DAY, TAB 06/11/14 Potassium Chloride* (K-DUR*) 20 Meq Tab.er.prt, 20 MEQ ORAL HS, #7 TAB 0 Refills 04/03/14 Aspirin Ec* (ASPIRIN EC*) 81 Mg Tablet.dr, 81 MG PO DAILY 07/09/12 Folic Acid* (FOLIC ACID*) 1 Mg Tablet, 1 MG ORAL DAILY, #10 TAB 07/09/12 Lisinopril* (LISINOPRIL*) 10 Mg Tablet, 10 MG ORAL DAILY, #30 TAB 07/09/12 Rosuvastatin Calcium* (CRESTOR*) 10 Mg Tablet, 20 MG ORAL DAILY, #30 TAB 07/09/12 Nevirapine (VIRAMUNE XR) 400 Mg Tab.er.24h, 400 MG PO DAILY 07/09/12 Discontinued Reported Medications Ca Cmb No.1/Vit D3/B-6/Fa/B12 (VITAMIN D3 1,000 UNIT TABLET) 1 Each Tablet, 1 EACH PO DAILY 07/09/12 Metoprolol Succinate* (METOPROLOL SUCCINATE*) 50 Mg Tab.er.24h, 50 MG ORAL DAILY , #30 TAB 07/09/12 Med list reviewed/reconciled: Yes Allergies: Coded Allergies: PENICILLINS (Unverified Allergy, Unknown, 04/03/14) Patient History History Provided By: Patient, Medical Record PMH Narrative Past Medical History: HTN Past Surgical History: none Pertinent Family History: none Social History: Denies: smoking, alcohol use, drug use Immunizations: UTD Reviewed Nursing Documentation: PMH: Agreed; PSxH: Agreed Nursing Documentation-PMH Past Medical History: No History, Except For Hx Cardiac Problems: Yes - high cholesterol Hx Hypertension: Yes Hx Cancer: No Hx Gastrointestinal Problems: No Hx Neurological Problems: No Social History: Denies: smoking, alcohol use, drug use, other Review of Systems All Other Systems: negative except mentioned in HPI Physical Exam Vital Signs Date Time Temp Pulse Resp B/P (MAP) Pulse Ox O2 Delivery O2 Flow Rate FiO2 09/07/17 18:20 98.1 112 18 123/72 98 Room Air 98.1 Sp02 EP Interpretation: reviewed, normal Labs Laboratory Tests Test 09/07/17 18:55 09/07/17 19:45 09/08/17 00:30 09/08/17 04:30 Urine Color Pale yellow Pale yellow Urine Appearance Clear Clear Urine pH 6 (4.5-8.0) 6 (4.5-8.0) Urine Specific [place] 1.005 (1.005-1.035) 1.010 (1.005-1.035) Urine Protein Negative (NEGATIVE) Negative (NEGATIVE) Urine Glucose (UA) Negative (NEGATIVE) Negative (NEGATIVE) Urine Ketones Negative (NEGATIVE) Negative (NEGATIVE) Urine Occult Blood Negative (NEGATIVE) Negative (NEGATIVE) Urine Nitrite Negative (NEGATIVE) Negative (NEGATIVE) Urine Bilirubin Negative (NEGATIVE) Negative (NEGATIVE) Urine Urobilinogen Normal MG/DL (0.0-1.0) Normal MG/DL (0.0-1.0) Urine Leukocyte Esterase Negative (NEGATIVE) Negative (NEGATIVE) Sodium Level 130 MMOL/L (136-145) L Potassium Level 3.5 MMOL/L (3.5-5.1) Chloride Level 97 MMOL/L (98-107) L Carbon Dioxide Level 20 MMOL/L (21-32) L Anion Gap 13 mmol/L (5-15) Blood Urea Nitrogen 21 mg/dL (7-18) H Creatinine 1.5 MG/DL (0.55-1.30) H Estimat Glomerular Filtration Rate 56.1 mL/min (>60) Glucose Level 97 MG/DL (74-106) Uric Acid 8.4 MG/DL (2.6-7.2) H Calcium Level 8.8 MG/DL (8.5-10.1) Total Bilirubin 0.4 MG/DL (0.2-1.0) Aspartate Amino Transf (AST/SGOT) 54 U/L (15-37) H Alanine Aminotransferase (ALT/SGPT) 33 U/L (12-78) Alkaline Phosphatase 85 U/L (46-116) Total Creatine Kinase 80 U/L (26-308) Creatine Kinase MB 0.8 NG/ML (0.0-3.6) Creatine Kinase MB Relative Index 1.0 Troponin I 0.000 ng/mL (0.000-0.056) Pro-B-Type Natriuretic Peptide 24 pg/mL (0-125) Total Protein 6.3 G/DL (6.4-8.2) L Albumin 3.4 G/DL (3.4-5.0) Globulin 2.9 g/dL Albumin/Globulin Ratio 1.2 (1.0-2.7) White Blood Count 6.9 K/UL (4.8-10.8) Red Blood Count 2.94 M/UL (4.70-6.10) L Hemoglobin 10.0 G/DL (14.2-18.0) L Hematocrit 28.8 % (42.0-52.0) L Mean Corpuscular Volume 98 FL (80-99) Mean Corpuscular Hemoglobin 33.9 PG (27.0-31.0) H Mean Corpuscular Hemoglobin Concent 34.5 G/DL (32.0-36.0) Red Cell Distribution Width 16.9 % (11.6-14.8) H Platelet Count 147 K/UL (150-450) L Mean Platelet Volume 7.1 FL (6.5-10.1) Neutrophils (%) (Auto) 56.0 % (45.0-75.0) Lymphocytes (%) (Auto) 30.3 % (20.0-45.0) Monocytes (%) (Auto) 8.8 % (1.0-10.0) Eosinophils (%) (Auto) 4.0 % (0.0-3.0) H Basophils (%) (Auto) 1.0 % (0.0-2.0) Urine RBC 0-2 /HPF (0 - 0) H Urine WBC 0 /HPF (0 - 0) Urine Squamous Epithelial Cells None /LPF (NONE/OCC) Urine Bacteria None /HPF (NONE) Urine Eosinophils None seen Urine Random Sodium 76 mmol/L (20-110) Urine Potassium Timed 23 mmol/L (12-62) Stool Occult Blood Negative (NEGATIVE) Test 09/08/17 06:05 White Blood Count 5.3 K/UL (4.8-10.8) Red Blood Count 2.98 M/UL (4.70-6.10) L Hemoglobin 9.6 G/DL (14.2-18.0) L Hematocrit 29.9 % (42.0-52.0) L Mean Corpuscular Volume 100 FL (80-99) H Mean Corpuscular Hemoglobin 32.3 PG (27.0-31.0) H Mean Corpuscular Hemoglobin Concent 32.2 G/DL (32.0-36.0) Red Cell Distribution Width 17.3 % (11.6-14.8) H Platelet Count 153 K/UL (150-450) Mean Platelet Volume 7.1 FL (6.5-10.1) Neutrophils (%) (Auto) 53.1 % (45.0-75.0) Lymphocytes (%) (Auto) 31.7 % (20.0-45.0) Monocytes (%) (Auto) 9.6 % (1.0-10.0) Eosinophils (%) (Auto) 4.4 % (0.0-3.0) H Basophils (%) (Auto) 1.2 % (0.0-2.0) Differential Total Cells Counted 100 Neutrophils % (Manual) 55 % (45-75) Lymphocytes % (Manual) 31 % (20-45) Monocytes % (Manual) 9 % (1-10) Eosinophils % (Manual) 4 % (0-3) H Basophils % (Manual) 1 % (0-2) Band Neutrophils 0 % (0-8) Platelet Estimate Adequate Platelet Morphology Normal Hypochromasia 2+ Anisocytosis 1+ Erythrocyte Sedimentation Rate 11 MM/HR (0-20) Reticulocyte Count 1.1 % (0.0-2.0) Prothrombin Time 11.2 SEC (9.30-11.50) Prothromb Time International Ratio 1.1 (0.9-1.1) Activated Partial Thromboplast Time 30 SEC (23-33) Sodium Level 136 MMOL/L (136-145) Potassium Level 3.5 MMOL/L (3.5-5.1) Chloride Level 103 MMOL/L (98-107) Carbon Dioxide Level 23 MMOL/L (21-32) Blood Urea Nitrogen 15 mg/dL (7-18) Creatinine 1.3 MG/DL (0.55-1.30) Estimat Glomerular Filtration Rate > 60 mL/min (>60) Glucose Level 104 MG/DL (74-106) Calcium Level 8.0 MG/DL (8.5-10.1) L Iron Level 143 ug/dL (50-175) Total Iron Binding Capacity 189 ug/dL (250-450) L Percent Iron Saturation 76 % (15-50) H Unsaturated Iron Binding 46 ug/dL (112-346) L Total Bilirubin 0.6 MG/DL (0.2-1.0) Aspartate Amino Transf (AST/SGOT) 45 U/L (15-37) H Alanine Aminotransferase (ALT/SGPT) 27 U/L (12-78) Alkaline Phosphatase 81 U/L (46-116) Lactate Dehydrogenase 160 U/L (81-234) Total Protein 6.1 G/DL (6.4-8.2) L Albumin 3.2 G/DL (3.4-5.0) L Globulin 2.9 g/dL Albumin/Globulin Ratio 1.1 (1.0-2.7) Amylase Level 155 U/L (25-115) H Lipase > 2000 U/L (73-393) H Carcinoembryonic Antigen Pending Vitamin B12 Level 195 PG/ML (193-986) Folate 19.0 NG/ML (8.6-58.9) General Appearance: well appearing, no apparent distress, alert Head: normocephalic EENT: PERRL/EOMI, normal ENT inspection Neck: supple Respiratory: normal breath sounds, no respiratory distress Cardiovascular: normal rate Gastrointestinal: normal inspection, non tender, soft, normal bowel sounds, non -distended Rectal: deferred Genitourinary: deferred Musculoskeletal: normal inspection, back normal Neurologic: normal inspection, alert, oriented x3, responsive Psychiatric: normal inspection, judgement/insight normal, memory normal Skin: normal inspection, normal color, no rash, warm/dry, palpation normal, well hydrated Lymphatic: normal inspection, no adenopathy Current Medications Current Medications Medications (Trade) Dose Ordered Sig/Robert Route PRN Reason Start Time Stop Time Status Last Admin Dose Admin Acetaminophen (Tylenol) 650 mg Q4H PRN ORAL fever 09/07/17 22:15 10/07/17 22:14 Dextrose (Dextrose 50%) 25 ml STAT PRN IV Hypoglycemia 09/08/17 09:15 10/07/17 22:14 Dextrose (Dextrose 50%) 50 ml STAT PRN IV Hypoglycemia 09/08/17 09:15 10/08/17 09:14 Diphenhydramine HCl (Benadryl) 25 mg Q6H PRN IVP Itching 09/08/17 09:00 10/08/17 08:59 Diphenhydramine HCl (Benadryl) 25 mg Q6H PRN ORAL Itching/Pruritis 09/07/17 22:15 10/07/17 22:14 Heparin Sodium (Porcine) (Heparin 5000 units/ml) 5,000 units EVERY 12 HOURS SUBQ 09/07/17 22:36 10/07/17 22:35 09/08/17 09:19 Lorazepam (Ativan 2mg/ml 1ml) 1 mg EVERY 4 HOURS PRN IV agitation 09/07/17 22:15 09/14/17 22:14 Metoclopramide HCl (Reglan) 10 mg EVERY 6 HOURS PRN IVP servere juicesea 09/07/17 22:15 10/07/17 22:14 Metoprolol Succinate (Toprol XL) 25 mg DAILY ORAL 09/08/17 09:00 10/08/17 08:59 09/08/17 09:18 Morphine Sulfate (Morphine Sulfate) 2 mg Q4H PRN IVP severe pain (7-10) 09/07/17 22:45 09/14/17 22:44 Nitroglycerin (Ntg) 0.4 mg Q5M X 3 DOSES PRN SL Prn Chest Pain 09/07/17 22:15 10/07/17 22:14 Non-Formulary Medication (Non-Formulary Med) 1 ea DAILY ORAL 09/09/17 09:00 10/09/17 08:59 UNV Ondansetron HCl (Zofran) 4 mg Q6H PRN IVP Nausea & Vomiting 09/07/17 22:15 10/07/17 22:14 Pantoprazole (Protonix) 40 mg DAILY IV 09/08/17 09:00 10/08/17 08:59 09/08/17 09:18 Polyethylene Glycol (Miralax) 17 gm HSPRN PRN ORAL Constipation 09/07/17 22:15 10/07/17 22:14 Promethazine HCl 12.5 mg/Sodium Chloride 55.5 ml @ 110 mls/hr Q6H PRN IV Refractory N/V 09/07/17 22:15 10/07/17 22:14 Raltegravir (Isentress) 400 mg EVERY 12 HOURS ORAL 09/08/17 21:00 10/08/17 20:59 Sodium Chloride 1,000 ml @ 100 mls/hr Q10H IV 09/08/17 09:30 10/07/17 09:29 09/08/17 09:30 Temazepam (Restoril) 15 mg HSPRN PRN ORAL Insomnia 09/07/17 22:15 09/14/17 22:14 09/08/17 00:21 GI: Plan Problems: (1) Anemia (2) Pancreatitis (3) Intractable diarrhea Plan lipase 2000+ electrolyte imbalance macrocytic hyperchromic anemia OB stool negative CLD, adv to regular diet as tolerated electrolyte correction anemia work up monitor H&H, prn transfusions bowel regime ppi pain mgmt fu Cdiff fu labs, lipase, utox, lipid panel Discussed with Dr. eBrmeo. Thank you for this patient referral, we will follow. The patient was seen and examined at bedside and all new and available data was reviewed in the patients chart. I agree with the above findings, impression and plan. (Patient seen earlier today. Signature stamp does not reflect patient encounter time.). - MD Ibeth Olmstead AnhMarcelina PRODUCTION LINE TECHNICIAN Sep 08, 2017 15:50
[2017-09-08 16:00] VITALS: BP 121/60
--- NOTE | 2017-09-08 16:43 | Cardiac Electrophysiology PN ---
Subjective Subjective [id number] Objective Last 24 Hour Vital Signs Date Time Temp Pulse Resp B/P (MAP) Pulse Ox O2 Delivery O2 Flow Rate FiO2 09/08/17 12:00 97.9 77 18 106/63 96 Room Air 97.9 09/08/17 09:18 82 114/66 09/08/17 08:46 97.9 82 18 114/66 96 97.9 09/08/17 02:35 98.4 92 17 95/54 100 98.4 09/07/17 22:35 98.1 92 13 117/66 98 Room Air 98.1 09/07/17 22:35 98.1 92 13 117/66 98 Room Air 208.6 09/07/17 18:43 98.1 100 18 129/91 99 Room Air 98.1 09/07/17 18:20 98.1 112 18 123/72 98 Room Air 98.1 Intake and Output 09/07/17 09/08/17 19:00 07:00 Output Total 525 ml Balance -525 ml Output Urine Total 525 ml # Voids 1 3 # Bowel Movements 1 Laboratory Tests Test 09/07/17 18:55 09/07/17 19:45 09/08/17 00:30 09/08/17 04:30 Urine Color Pale yellow Pale yellow Urine Appearance Clear Clear Urine pH 6 (4.5-8.0) 6 (4.5-8.0) Urine Specific [place] 1.005 (1.005-1.035) 1.010 (1.005-1.035) Urine Protein Negative (NEGATIVE) Negative (NEGATIVE) Urine Glucose (UA) Negative (NEGATIVE) Negative (NEGATIVE) Urine Ketones Negative (NEGATIVE) Negative (NEGATIVE) Urine Occult Blood Negative (NEGATIVE) Negative (NEGATIVE) Urine Nitrite Negative (NEGATIVE) Negative (NEGATIVE) Urine Bilirubin Negative (NEGATIVE) Negative (NEGATIVE) Urine Urobilinogen Normal MG/DL (0.0-1.0) Normal MG/DL (0.0-1.0) Urine Leukocyte Esterase Negative (NEGATIVE) Negative (NEGATIVE) Sodium Level 130 MMOL/L (136-145) L Potassium Level 3.5 MMOL/L (3.5-5.1) Chloride Level 97 MMOL/L (98-107) L Carbon Dioxide Level 20 MMOL/L (21-32) L Anion Gap 13 mmol/L (5-15) Blood Urea Nitrogen 21 mg/dL (7-18) H Creatinine 1.5 MG/DL (0.55-1.30) H Estimat Glomerular Filtration Rate 56.1 mL/min (>60) Glucose Level 97 MG/DL (74-106) Uric Acid 8.4 MG/DL (2.6-7.2) H Calcium Level 8.8 MG/DL (8.5-10.1) Total Bilirubin 0.4 MG/DL (0.2-1.0) Aspartate Amino Transf (AST/SGOT) 54 U/L (15-37) H Alanine Aminotransferase (ALT/SGPT) 33 U/L (12-78) Alkaline Phosphatase 85 U/L (46-116) Total Creatine Kinase 80 U/L (26-308) Creatine Kinase MB 0.8 NG/ML (0.0-3.6) Creatine Kinase MB Relative Index 1.0 Troponin I 0.000 ng/mL (0.000-0.056) Pro-B-Type Natriuretic Peptide 24 pg/mL (0-125) Total Protein 6.3 G/DL (6.4-8.2) L Albumin 3.4 G/DL (3.4-5.0) Globulin 2.9 g/dL Albumin/Globulin Ratio 1.2 (1.0-2.7) White Blood Count 6.9 K/UL (4.8-10.8) Red Blood Count 2.94 M/UL (4.70-6.10) L Hemoglobin 10.0 G/DL (14.2-18.0) L Hematocrit 28.8 % (42.0-52.0) L Mean Corpuscular Volume 98 FL (80-99) Mean Corpuscular Hemoglobin 33.9 PG (27.0-31.0) H Mean Corpuscular Hemoglobin Concent 34.5 G/DL (32.0-36.0) Red Cell Distribution Width 16.9 % (11.6-14.8) H Platelet Count 147 K/UL (150-450) L Mean Platelet Volume 7.1 FL (6.5-10.1) Neutrophils (%) (Auto) 56.0 % (45.0-75.0) Lymphocytes (%) (Auto) 30.3 % (20.0-45.0) Monocytes (%) (Auto) 8.8 % (1.0-10.0) Eosinophils (%) (Auto) 4.0 % (0.0-3.0) H Basophils (%) (Auto) 1.0 % (0.0-2.0) Urine RBC 0-2 /HPF (0 - 0) H Urine WBC 0 /HPF (0 - 0) Urine Squamous Epithelial Cells None /LPF (NONE/OCC) Urine Bacteria None /HPF (NONE) Urine Eosinophils None seen Urine Random Sodium 76 mmol/L (20-110) Urine Potassium Timed 23 mmol/L (12-62) Stool Occult Blood Negative (NEGATIVE) Test 09/08/17 06:05 White Blood Count 5.3 K/UL (4.8-10.8) Red Blood Count 2.98 M/UL (4.70-6.10) L Hemoglobin 9.6 G/DL (14.2-18.0) L Hematocrit 29.9 % (42.0-52.0) L Mean Corpuscular Volume 100 FL (80-99) H Mean Corpuscular Hemoglobin 32.3 PG (27.0-31.0) H Mean Corpuscular Hemoglobin Concent 32.2 G/DL (32.0-36.0) Red Cell Distribution Width 17.3 % (11.6-14.8) H Platelet Count 153 K/UL (150-450) Mean Platelet Volume 7.1 FL (6.5-10.1) Neutrophils (%) (Auto) 53.1 % (45.0-75.0) Lymphocytes (%) (Auto) 31.7 % (20.0-45.0) Monocytes (%) (Auto) 9.6 % (1.0-10.0) Eosinophils (%) (Auto) 4.4 % (0.0-3.0) H Basophils (%) (Auto) 1.2 % (0.0-2.0) Differential Total Cells Counted 100 Neutrophils % (Manual) 55 % (45-75) Lymphocytes % (Manual) 31 % (20-45) Monocytes % (Manual) 9 % (1-10) Eosinophils % (Manual) 4 % (0-3) H Basophils % (Manual) 1 % (0-2) Band Neutrophils 0 % (0-8) Platelet Estimate Adequate Platelet Morphology Normal Hypochromasia 2+ Anisocytosis 1+ Erythrocyte Sedimentation Rate 11 MM/HR (0-20) Reticulocyte Count 1.1 % (0.0-2.0) Prothrombin Time 11.2 SEC (9.30-11.50) Prothromb Time International Ratio 1.1 (0.9-1.1) Activated Partial Thromboplast Time 30 SEC (23-33) Sodium Level 136 MMOL/L (136-145) Potassium Level 3.5 MMOL/L (3.5-5.1) Chloride Level 103 MMOL/L (98-107) Carbon Dioxide Level 23 MMOL/L (21-32) Blood Urea Nitrogen 15 mg/dL (7-18) Creatinine 1.3 MG/DL (0.55-1.30) Estimat Glomerular Filtration Rate > 60 mL/min (>60) Glucose Level 104 MG/DL (74-106) Calcium Level 8.0 MG/DL (8.5-10.1) L Iron Level 143 ug/dL (50-175) Total Iron Binding Capacity 189 ug/dL (250-450) L Percent Iron Saturation 76 % (15-50) H Unsaturated Iron Binding 46 ug/dL (112-346) L Total Bilirubin 0.6 MG/DL (0.2-1.0) Aspartate Amino Transf (AST/SGOT) 45 U/L (15-37) H Alanine Aminotransferase (ALT/SGPT) 27 U/L (12-78) Alkaline Phosphatase 81 U/L (46-116) Lactate Dehydrogenase 160 U/L (81-234) Total Protein 6.1 G/DL (6.4-8.2) L Albumin 3.2 G/DL (3.4-5.0) L Globulin 2.9 g/dL Albumin/Globulin Ratio 1.1 (1.0-2.7) Amylase Level 155 U/L (25-115) H Lipase > 2000 U/L (73-393) H Carcinoembryonic Antigen Pending Vitamin B12 Level 195 PG/ML (193-986) Folate 19.0 NG/ML (8.6-58.9) David Moyer MD Sep 08, 2017 16:43
--- NOTE | 2017-09-08 17:09 | Diagnostic Imaging Report ---
Indication: Dizziness Technique: sagittal T1 fast spin echo, axial T1 FLAIR, axial T2 FLAIR, axial T2 FS PROPELLER, axial T2* GRE, axial diffusion weighted images. ADC and exponential ADC maps generated Comparison: CT brain dated 06/11/2014 Findings: No abnormal areas of restricted diffusion to suggest acute infarction. No acute hemorrhage or edema. No mass effect nor midline shift. There is age-related enlargement of the ventricles and extra-axial CSF spaces. There is periventricular deep white matter T2 high signal, consistent with chronic ischemic change. There is evidence of prior cataract surgery on the right. The sinuses are unremarkable.. Impression: Chronic and age-related changes. Negative for acute intracranial bleed, mass effect, or infarct
--- NOTE | 2017-09-08 19:45 | History and Physical Report ---
DATE OF ADMISSION: 09/07/2017 APPROXIMATE TIME: 1 p.m. CONSULTANTS: 1. Deborah Shelby M.D. 2. David Moyer M.D. 3. Keith Hernandez M.D. 4. Haider Bermeo M.D. 5. Jorge Fuller M.D. CHIEF COMPLAINT: Dizzy, vomiting, diarrhea, dehydration. BRIEF HISTORY: The patient is a 72-year-old male, who lives at home by himself, presents to [facility] last night with history of increased dizziness, weakness, and vomiting. The patient diagnosed with diarrhea and dehydration, admitted to medical floor for further treatment. Currently, calm in bed, lower extremity weakness, feeling little better, no complaint. REVIEW OF SYSTEMS: No chest pain. No shortness of breath. Slight nausea, vomiting and diarrhea. PAST MEDICAL HISTORY: Weakness lower extremity and HIV. PAST SURGICAL HISTORY: Left ankle. MEDICATIONS: Include Isentress, metoprolol, pantoprazole, , morphine, Reglan, temazepam Zofran. ALLERGIES: Penicillin. SOCIAL HISTORY: Positive smoking. Occasional alcohol. No intravenous drug abuse. FAMILY HISTORY: Noncontributory. PHYSICAL EXAMINATION: GENERAL: Calm in bed, oriented x3, no acute distress. VITAL SIGNS: Temperature is 97 degrees, pulse 77, respiratory rate 18, blood pressure 106/63. CARDIOVASCULAR: No murmur. LUNGS: Distant and clear. ABDOMEN: Bowel sounds positive. Nontender. Nondistended. EXTREMITIES: No cyanosis, clubbing, or edema. NEUROLOGIC: The patient moves all extremities, slightly weak. LABORATORY DATA: Labs at this time show hemoglobin and hematocrit 9.6/29, otherwise CBC is normal. BMP shows albumin 3.2. Amylase 155. Lipase greater than 2000. INR 1.1 and PTT 30. Urinalysis negative. ASSESSMENT: 1. Dizziness. 2. Vomiting. 3. Anemia. 4. Diarrhea. 5. Dehydration. 6. Lower extremity weakness. 7. Human immunodeficiency virus. PLAN: 1. Continue previous medications. 2. OT/PT. 3. Dietary followup. 4. Intravenous fluids. 5. Antibiotics per Infectious Diseases. 6. We will continue to follow the patient medically. Romel Marshall D.O. DR: Beata JOB#: [id number] CC:
[2017-09-08 20:21] VITALS: BP 109/65
[2017-09-08] MEDS ORDERED: NS 275ml ONE (20:54)
[2017-09-08] MEDS: Isentress 400mg tab ORAL SCH (21:01)
--- NOTE | 2017-09-08 21:15 | Consultation ---
DATE OF CONSULTATION: 09/08/2017 CARDIOLOGY CONSULTATION CONSULTING PHYSICIAN: David Moyer M.D. REFERRING PHYSICIAN: Romel Marshall D.O. REASON FOR CONSULTATION: Dizziness. HISTORY OF PRESENT ILLNESS: The patient is a 72-year-old gentleman with history of syncope in the past for which he was evaluated in [facility] about couple years ago. The patient presented to the emergency room because of dizziness that has been present for the last few days. The patient also has been having diarrhea and vomiting. Blood pressure was low by paramedics. The patient received IV fluids and symptoms improved. The patient also was found to have renal failure. The patient admitted to med/surg for further evaluation. At the time of my evaluation, the patient has no chest pain, palpitation, or shortness of breath. REVIEW OF SYSTEMS: Review of systems was thoroughly performed and was negative other than what was mentioned in the history of present illness PAST MEDICAL HISTORY: 1. Hypertension. 2. HIV. 3. Hyperlipidemia. MEDICATIONS: Include aspirin, folic acid, hydrochlorothiazide, lisinopril, metoprolol, Isentress, and Crestor. PHYSICAL EXAMINATION: VITAL SIGNS: Blood pressure is 110/70, pulse 70, respirations 18. HEAD AND NECK: Showed no JVD or carotid bruits. LUNGS: Clear. CARDIOVASCULAR: Regular S1 and S2 with no gallop or murmur. ABDOMEN: Soft. EXTREMITIES: No pitting edema. LABORATORY DATA: White count 5.2, hemoglobin 9.6, hematocrit of 30, platelet count 153. Sodium 136, potassium 3.5, BUN of 15, creatinine 1.3, and glucose of 104. First troponin is negative. Lipase is more than 2000. ASSESSMENT AND PLAN: 1. Dizziness likely due to hypotension, blood pressure was in the 90 and the patient has abdominal pain and vomiting. We will get an echocardiogram to evaluate for ejection fraction and wall motion abnormality. EKG showed sinus tachycardia at rate of 104, otherwise normal electrocardiogram. 2. History of hypertension, the patient on Toprol-XL 25 mg daily at this time. 3. Hyperlipidemia, the patient was on Crestor that will be held in view of the patient's lipase more than 2000. 4. Human immunodeficiency virus. 5. Pancreatitis. The patient was evaluated by Dr. Bermeo. Lipase more than 2000 range. Thank you very much, Dr. Marshall, for allowing me to participate in the care of this patient. Please do not hesitate to contact me for any questions regarding my evaluation. David Moyer M.D. DR: Harper JOB#: [id number] CC:
--- NOTE | 2017-09-08 23:07 | Consultation ---
History of Present Illness General Date patient seen: Sep 08, 2017 Chief Complaint: Dizziness Referring physician: GISELLE WHITNEY Reason for Consultation: PANCREATITIS Present Illness HPI 72-year-old man, with hx of anxiety depression hiv and mmp. the pt has anxiety has been on Ativan prior to admission. no depressive manic or psychotic sxs Allergies: Coded Allergies: PENICILLINS (Unverified Allergy, Unknown, 04/03/14) Medication History Scheduled Aspirin Ec* (Aspirin Ec*), 81 MG PO DAILY, (Reported) Cholecalciferol (Vitamin D3)* (Vitamin D*), 1,000 UNIT PO DAILY, (Reported) Famotidine (Pepcid), 20 MG ORAL BEDTIME, (Reported) Folic Acid* (Folic Acid*), 1 MG ORAL DAILY, (Reported) Hydrochlorothiazide* (Hydrochlorothiazide*), 25 MG ORAL DAILY, (Reported) Lisinopril* (Lisinopril*), 10 MG ORAL DAILY, (Reported) Lorazepam* (Lorazepam*), 0.5 MG ORAL THREE TIMES A DAY, (Reported) Magnesium Oxide (Magnesium Oxide), 400 MG ORAL BID Metoprolol Succinate* (Metoprolol Succinate*), 25 MG PO DAILY, (Reported) Nevirapine (Viramune Xr), 400 MG PO DAILY, (Reported) Potassium Chloride (Potassium Chloride), 20 MEQ PO DAILY Potassium Chloride* (K-Dur*), 20 MEQ ORAL HS, (Reported) Raltegravir (Isentress), 400 MG ORAL EVERY 12 HOURS, (Reported) Rosuvastatin Calcium* (Crestor*), 20 MG ORAL DAILY, (Reported) Miscellaneous Medications Multivitamin (Multivitamins), 1 EACH PO, (Reported) Discontinued Medications Ca Cmb No.1/Vit D3/B-6/Fa/B12 (Vitamin D3 1,000 Unit Tablet), 1 EACH PO DAILY, ( Reported) Discontinued Reason: Prescription changed Metoprolol Succinate* (Metoprolol Succinate*), 50 MG ORAL DAILY, (Reported) Discontinued Reason: Pt stopped taking med Patient History Limited by: medical condition History Provided By: Patient, Medical Record, PMD Healthcare decision maker Resuscitation status Full Code Advanced Directive on File No Review of Systems Psychiatric: Reports: prior hx, anxiety Physical Exam General Appearance: no apparent distress, alert Neurologic: oriented x 3, responsive, depressed affect Last 24 Hour Vital Signs Date Time Temp Pulse Resp B/P (MAP) Pulse Ox O2 Delivery O2 Flow Rate FiO2 09/08/17 20:21 97.6 67 17 109/65 97 Room Air 97.6 09/08/17 16:00 98.0 76 18 121/60 99 Room Air 98.0 09/08/17 12:00 97.9 77 18 106/63 96 Room Air 97.9 09/08/17 09:18 82 114/66 09/08/17 08:46 97.9 82 18 114/66 96 97.9 09/08/17 02:35 98.4 92 17 95/54 100 98.4 Intake and Output 09/07/17 09/08/17 19:00 07:00 Output Total 525 ml Balance -525 ml Output Urine Total 525 ml # Voids 1 3 # Bowel Movements 1 Laboratory Tests Test 09/08/17 00:30 09/08/17 04:30 09/08/17 06:05 Urine Color Pale yellow Urine Appearance Clear Urine pH 6 (4.5-8.0) Urine Specific [place] 1.010 (1.005-1.035) Urine Protein Negative (NEGATIVE) Urine Glucose (UA) Negative (NEGATIVE) Urine Ketones Negative (NEGATIVE) Urine Occult Blood Negative (NEGATIVE) Urine Nitrite Negative (NEGATIVE) Urine Bilirubin Negative (NEGATIVE) Urine Urobilinogen Normal MG/DL (0.0-1.0) Urine Leukocyte Esterase Negative (NEGATIVE) Urine RBC 0-2 /HPF (0 - 0) H Urine WBC 0 /HPF (0 - 0) Urine Squamous Epithelial Cells None /LPF (NONE/OCC) Urine Bacteria None /HPF (NONE) Urine Eosinophils None seen Urine Random Sodium 76 mmol/L (20-110) Urine Potassium Timed 23 mmol/L (12-62) Stool Occult Blood Negative (NEGATIVE) White Blood Count 5.3 K/UL (4.8-10.8) Red Blood Count 2.98 M/UL (4.70-6.10) L Hemoglobin 9.6 G/DL (14.2-18.0) L Hematocrit 29.9 % (42.0-52.0) L Mean Corpuscular Volume 100 FL (80-99) H Mean Corpuscular Hemoglobin 32.3 PG (27.0-31.0) H Mean Corpuscular Hemoglobin Concent 32.2 G/DL (32.0-36.0) Red Cell Distribution Width 17.3 % (11.6-14.8) H Platelet Count 153 K/UL (150-450) Mean Platelet Volume 7.1 FL (6.5-10.1) Neutrophils (%) (Auto) 53.1 % (45.0-75.0) Lymphocytes (%) (Auto) 31.7 % (20.0-45.0) Monocytes (%) (Auto) 9.6 % (1.0-10.0) Eosinophils (%) (Auto) 4.4 % (0.0-3.0) H Basophils (%) (Auto) 1.2 % (0.0-2.0) Differential Total Cells Counted 100 Neutrophils % (Manual) 55 % (45-75) Lymphocytes % (Manual) 31 % (20-45) Monocytes % (Manual) 9 % (1-10) Eosinophils % (Manual) 4 % (0-3) H Basophils % (Manual) 1 % (0-2) Band Neutrophils 0 % (0-8) Platelet Estimate Adequate Platelet Morphology Normal Hypochromasia 2+ Anisocytosis 1+ Erythrocyte Sedimentation Rate 11 MM/HR (0-20) Reticulocyte Count 1.1 % (0.0-2.0) Prothrombin Time 11.2 SEC (9.30-11.50) Prothromb Time International Ratio 1.1 (0.9-1.1) Activated Partial Thromboplast Time 30 SEC (23-33) Sodium Level 136 MMOL/L (136-145) Potassium Level 3.5 MMOL/L (3.5-5.1) Chloride Level 103 MMOL/L (98-107) Carbon Dioxide Level 23 MMOL/L (21-32) Blood Urea Nitrogen 15 mg/dL (7-18) Creatinine 1.3 MG/DL (0.55-1.30) Estimat Glomerular Filtration Rate > 60 mL/min (>60) Glucose Level 104 MG/DL (74-106) Calcium Level 8.0 MG/DL (8.5-10.1) L Iron Level 143 ug/dL (50-175) Total Iron Binding Capacity 189 ug/dL (250-450) L Percent Iron Saturation 76 % (15-50) H Unsaturated Iron Binding 46 ug/dL (112-346) L Total Bilirubin 0.6 MG/DL (0.2-1.0) Aspartate Amino Transf (AST/SGOT) 45 U/L (15-37) H Alanine Aminotransferase (ALT/SGPT) 27 U/L (12-78) Alkaline Phosphatase 81 U/L (46-116) Lactate Dehydrogenase 160 U/L (81-234) Total Protein 6.1 G/DL (6.4-8.2) L Albumin 3.2 G/DL (3.4-5.0) L Globulin 2.9 g/dL Albumin/Globulin Ratio 1.1 (1.0-2.7) Amylase Level 155 U/L (25-115) H Lipase > 2000 U/L (73-393) H Carcinoembryonic Antigen Pending Vitamin B12 Level 195 PG/ML (193-986) Folate 19.0 NG/ML (8.6-58.9) Height (Feet): 5 Height (Inches): 5.00 Weight (Pounds): 144 Medications Current Medications Medications (Trade) Dose Ordered Sig/Robert Route PRN Reason Start Time Stop Time Status Last Admin Dose Admin Acetaminophen (Tylenol) 650 mg Q4H PRN ORAL fever 09/07/17 22:15 10/07/17 22:14 Dextrose (Dextrose 50%) 25 ml STAT PRN IV Hypoglycemia 09/08/17 09:15 10/07/17 22:14 Dextrose (Dextrose 50%) 50 ml STAT PRN IV Hypoglycemia 09/08/17 09:15 10/08/17 09:14 Diphenhydramine HCl (Benadryl) 25 mg Q6H PRN IVP Itching 09/08/17 09:00 10/08/17 08:59 Diphenhydramine HCl (Benadryl) 25 mg Q6H PRN ORAL Itching/Pruritis 09/07/17 22:15 10/07/17 22:14 Heparin Sodium (Porcine) (Heparin 5000 units/ml) 5,000 units EVERY 12 HOURS SUBQ 09/07/17 22:36 10/07/17 22:35 09/08/17 09:19 Lorazepam (Ativan 2mg/ml 1ml) 1 mg EVERY 4 HOURS PRN IV agitation 09/07/17 22:15 09/14/17 22:14 Metoclopramide HCl (Reglan) 10 mg EVERY 6 HOURS PRN IVP servere nauasea 09/07/17 22:15 10/07/17 22:14 Metoprolol Succinate (Toprol XL) 25 mg DAILY ORAL 09/08/17 09:00 10/08/17 08:59 09/08/17 09:18 Morphine Sulfate (Morphine Sulfate) 2 mg Q4H PRN IVP severe pain (7-10) 09/07/17 22:45 09/14/17 22:44 Nitroglycerin (Ntg) 0.4 mg Q5M X 3 DOSES PRN SL Prn Chest Pain 09/07/17 22:15 10/07/17 22:14 Non-Formulary Medication (Non-Formulary Med) 1 ea DAILY ORAL 09/09/17 09:00 10/09/17 08:59 UNV Ondansetron HCl (Zofran) 4 mg Q6H PRN IVP Nausea & Vomiting 09/07/17 22:15 10/07/17 22:14 Pantoprazole (Protonix) 40 mg DAILY IV 09/08/17 09:00 10/08/17 08:59 09/08/17 09:18 Polyethylene Glycol (Miralax) 17 gm HSPRN PRN ORAL Constipation 09/07/17 22:15 10/07/17 22:14 Promethazine HCl 12.5 mg/Sodium Chloride 55.5 ml @ 110 mls/hr Q6H PRN IV Refractory N/V 09/07/17 22:15 10/07/17 22:14 Raltegravir (Isentress) 400 mg EVERY 12 HOURS ORAL 09/08/17 21:00 10/08/17 20:59 09/08/17 21:01 Sodium Chloride 1,000 ml @ 100 mls/hr Q10H IV 09/08/17 09:30 10/07/17 09:29 09/08/17 20:11 Temazepam (Restoril) 15 mg HSPRN PRN ORAL Insomnia 09/07/17 22:15 09/14/17 22:14 09/08/17 22:11 Assessment/Plan Assessment/Plan Anxiety d/o Ativan prn consider low dose ssri Sudhakar Chao M.D. Sep 08, 2017 23:07
--- NOTE | 2017-09-08 23:15 | Consultation ---
DATE OF CONSULTATION: 09/08/2017 DATE OF ADMISSION: 09/07/2017 CONSULTING PHYSICIAN: Gurmeet Drake M.D. REFERRING PHYSICIAN: Romel Marshall D.O. REASON FOR CONSULTATION: 1. Acute kidney injury. 2. Hyponatremia. HISTORY OF PRESENT ILLNESS: The patient is a 72-year-old gentleman, who presented to the emergency room via EMS after feeling lightheaded and dizzy. It was noted that he had serum sodium of 130 and creatinine of 1.5. The patient had stated he had been having nausea, vomiting, and diarrhea for the last several days. The patient was hypotensive and orthostatic on presentation. He does have history of underlying HIV. No chest pain, shortness of breath, or palpitations. He was aggressively hydrated overnight. He is feeling better today. ALLERGIES: Penicillin. PAST MEDICAL HISTORY: 1. Hypertension. 2. HIV. 3. GERD. 4. Hyperlipidemia. 5. Hypokalemia. SOCIAL HISTORY: No current tobacco, alcohol, or illicit drug use. PAST SURGICAL HISTORY: None. REVIEW OF SYSTEMS: NEUROLOGIC: The patient denies headache, change in vision, syncope, or presyncopal episodes. CARDIOVASCULAR: No current chest pain, palpitations, or angina. PULMONARY: No difficulty breathing, productive cough, or sputum. GASTROINTESTINAL/GENITOURINARY: The patient is having nausea, vomiting, and diarrhea. ENDOCRINOLOGIC: No night sweats, fevers, or chills. MUSCULOSKELETAL: The patient is feeling weak, tired, and fatigued. LABORATORY DATA: Labs dated 09/08/2017, white cell count 5.3, hemoglobin 9.6, and platelet count 153,000. Sodium 136, potassium 3.5, creatinine 1.3. PHYSICAL EXAMINATION: VITAL SIGNS: Blood pressure 95/54, respiratory rate 17, pulse 92, temperature 98.4, and 100% on room oxygen. GENERAL: The patient is awake and alert, not otherwise in distress. HEENT: Extraocular muscles intact. No lymphadenopathy noted. CARDIOVASCULAR: S1, S2. No rubs or gallops. PULMONARY: Clear to auscultation bilaterally. No rales, rhonchi, or wheezes. ABDOMINAL: Nondistended, nontender. EXTREMITIES: No edema noted. ASSESSMENT AND PLAN: 1. Hyponatremia secondary to hypovolemia from nausea, vomiting, and diarrhea. Continue aggressive hydration. Serum sodium has normalized. 2. Acute kidney injury, secondary to multifactorial. Acute tubular necrosis from intravascular volume depletion and hypotension. Creatinine has improved to 1.3. Continue aggressive hydration and avoidance of nephrotoxics. Renal ultrasound pending. 3. Nausea, vomiting, diarrhea. Continue aggressive hydration. GI management per primary care physician. 4. HIV. Continue highly active anti-retroviral therapy. Gurmeet Drake MD DR: Arely JOB#: [id number] CC:
[2017-09-09 04:50] VITALS: BP 97/62
[2017-09-09 08:00] VITALS: BP 103/61
[2017-09-09 08:39] LABS: BASOPHILS % (AUTO) 0.9 % (0.0-2.0); EOSINOPHILS % (AUTO) 3.8 % (0.0-3.0); HEMATOCRIT 30.8 % (42.0-52.0); HEMOGLOBIN 10.1 G/DL (14.2-18.0); LYMPHOCYTES % (AUTO) 24.6 % (20.0-45.0); MEAN CORPUSCULAR VOLUME 103 FL (80-99); MONOCYTES % (AUTO) 8.4 % (1.0-10.0); NEUTROPHILS % (AUTO) 62.3 % (45.0-75.0); PLATELET COUNT 149 K/UL (150-450); RED CELL DISTRIBUTION WIDTH 18.8 % (11.6-14.8)
[2017-09-09] MEDS: Pantoprazole Inj IV SCH (08:44)
[2017-09-09] MEDS: Isentress 400mg tab ORAL SCH ×2 (08:44→20:52)
[2017-09-09] MEDS: Metoprolol Succinate XL 25mg tab ORAL SCH (08:48)
[2017-09-09] MEDS: Heparin 5000 units/ml inj SUBQ SCH ×2 (08:54→20:53)
--- NOTE | 2017-09-09 08:58 | Nephrology Progress Note ---
Assessment/Plan Assessment/Plan 1. Hyponatremia- due to volume depletion - resolved 2. DAJA- due to volume depletion and hypotension - renal US negative (benign renal cyst) - AM labs pending, if Cr normal will sign off - OK for DC from renal point 3. N/V- resolved 4. HIV- HAART 5. Dehydration- on IVF's, resolved Subjective Date patient seen: Sep 09, 2017 Time patient seen: 08:55 ROS Limited/Unobtainable: No Allergies: Coded Allergies: PENICILLINS (Unverified Allergy, Unknown, 04/03/14) All Systems: reviewed and negative except above Subjective Patient feels much better Objective Last 24 Hour Vital Signs Date Time Temp Pulse Resp B/P (MAP) Pulse Ox O2 Delivery O2 Flow Rate FiO2 09/09/17 08:48 90 103/61 09/09/17 04:50 97.0 68 18 97/62 98 Room Air 97.0 09/08/17 20:21 97.6 67 17 109/65 97 Room Air 97.6 09/08/17 16:00 98.0 76 18 121/60 99 Room Air 98.0 09/08/17 12:00 97.9 77 18 106/63 96 Room Air 97.9 09/08/17 09:18 82 114/66 Intake and Output 09/08/17 09/09/17 19:00 07:00 Intake Total 900 ml 1100 ml Output Total 200 ml 800 ml Balance 700 ml 300 ml Intake IV Total 900 ml 700 ml Other 400 ml Output Urine Total 200 ml 800 ml # Voids 1 Laboratory Tests 09/09/17 00:05: Urine Opiates Screen Negative, Urine Barbiturates Screen Negative, Phencyclidine (PCP) Screen Negative, Urine Amphetamines Screen Negative, Urine Benzodiazepines Screen Negative, Urine Cocaine Screen Negative, Urine Marijuana (THC) Screen Negative 09/09/17 08:10: White Blood Count [Pending], Red Blood Count 3.00L, Hemoglobin 10.1L, Hematocrit 30.8L, Mean Corpuscular Volume 103H, Mean Corpuscular Hemoglobin 33.5H, Mean Corpuscular Hemoglobin Concent 32.7, Red Cell Distribution Width 18.8H, Platelet Count 149L, Mean Platelet Volume 6.9, Neutrophils (%) (Auto) 62.3, Lymphocytes (%) (Auto) 24.6, Monocytes (%) (Auto) 8.4, Eosinophils (%) ( Auto) 3.8H, Basophils (%) (Auto) 0.9, Lymphocytes [Pending], Sodium Level [ Pending], Potassium Level [Pending], Chloride Level [Pending], Carbon Dioxide Level [Pending], Blood Urea Nitrogen [Pending], Creatinine [Pending], Estimat Glomerular Filtration Rate [Pending], Glucose Level [Pending], Calcium Level [ Pending], Phosphorus Level [Pending], Magnesium Level [Pending], Total Bilirubin [Pending], Aspartate Amino Transf (AST/SGOT) [Pending], Alanine Aminotransferase (ALT/SGPT) [Pending], Alkaline Phosphatase [Pending], Total Protein [Pending], Albumin [Pending], Globulin [Pending], Triglycerides Level [ Pending], Cholesterol Level [Pending], LDL Cholesterol [Pending], HDL Cholesterol [Pending], Cholesterol/HDL Ratio [Pending], Percent CD3 Cells [ Pending], Absolute CD3 Count [Pending], Percent CD4 Cells [Pending], Absolute CD4 Count [Pending], T-Lymphocyte CD4/CD8 Ratio [Pending], Percent CD8 Cells [ Pending], Absolute CD8 Count [Pending] Height (Feet): 5 Height (Inches): 5.00 Weight (Pounds): 144 General Appearance: WD/WN, no apparent distress EENT: normal ENT inspection Neck: normal alignment, supple Cardiovascular: normal rate, regular rhythm Respiratory/Chest: lungs clear, normal breath sounds Abdomen: non tender, soft Edema: no edema noted Arm (L), no edema noted Arm (R), no edema noted Leg (L), no edema noted Leg (R), no edema noted Pedal (L), no edema noted Pedal (R), no edema noted Generalized Gurmeet Drake M.D. Sep 09, 2017 08:58
[2017-09-09 09:18] LABS: CHOLESTEROL 151 MG/DL (< 200); HDL CHOLESTEROL 88 MG/DL (40-60); PHOSPHORUS 2.5 MG/DL (2.5-4.9); TRIGLYCERIDES 119 MG/DL (30-150)
[2017-09-09 09:50] LABS: ALANINE AMINOTRANSFERASE 23 U/L (12-78); ALBUMIN 3.1 G/DL (3.4-5.0); ALBUMIN/GLOBULIN RATIO 1.2 (1.0-2.7); ALKALINE PHOSPHATASE 82 U/L (46-116); ANION GAP 10 mmol/L (5-15); ASPARTATE AMINO TRANSFERASE 31 U/L (15-37); BILIRUBIN,TOTAL 0.3 MG/DL (0.2-1.0); BLOOD UREA NITROGEN 11 mg/dL (7-18); CALCIUM 8.2 MG/DL (8.5-10.1); CARBON DIOXIDE 23 MMOL/L (21-32); CHLORIDE 103 MMOL/L (98-107); CREATININE 1.3 MG/DL (0.55-1.30); POTASSIUM 3.5 MMOL/L (3.5-5.1); SODIUM 136 MMOL/L (136-145)
[2017-09-09] MEDS ORDERED: Isovue-300 100ml vial INJ PRN (10:00)
--- NOTE | 2017-09-09 10:46 | GI Progress Note ---
Assessment/Plan Problems: (1) Pancreatitis ICD Codes: K85.90 - Acute pancreatitis without necrosis or infection, unspecified SNOMED: 57388672 (2) Anemia ICD Codes: D64.9 - Anemia, unspecified SNOMED: 584095895 (3) Intractable diarrhea ICD Codes: R19.7 - Diarrhea, unspecified SNOMED: 561997845 Status: stable Status Narrative Discussed with Dr. Bermeo. Assessment/Plan lipase 2000+ electrolyte imbalance macrocytic hyperchromic anemia OB stool negative elevated CEA 9.3 EGD/colonoscopy scheduled for tomorrow. - CLD, NPO @ [place]. - hold all blood thinners tonight. electrolyte correction monitor H&H, prn transfusions bowel regime ppi pain mgmt fu labs Subjective Gastrointestinal/Abdominal: Reports: no symptoms Objective Last 24 Hour Vital Signs Date Time Temp Pulse Resp B/P (MAP) Pulse Ox O2 Delivery O2 Flow Rate FiO2 09/09/17 08:48 90 103/61 09/09/17 08:00 97.2 90 18 103/61 97 Room Air 97.2 09/09/17 04:50 97.0 68 18 97/62 98 Room Air 97.0 09/08/17 20:21 97.6 67 17 109/65 97 Room Air 97.6 09/08/17 16:00 98.0 76 18 121/60 99 Room Air 98.0 09/08/17 12:00 97.9 77 18 106/63 96 Room Air 97.9 Intake and Output 09/08/17 09/09/17 19:00 07:00 Intake Total 900 ml 1100 ml Output Total 200 ml 800 ml Balance 700 ml 300 ml Intake IV Total 900 ml 700 ml Other 400 ml Output Urine Total 200 ml 800 ml # Voids 1 Laboratory Tests Test 09/09/17 00:05 09/09/17 08:10 Urine Opiates Screen Negative (NEGATIVE) Urine Barbiturates Screen Negative (NEGATIVE) Phencyclidine (PCP) Screen Negative (NEGATIVE) Urine Amphetamines Screen Negative (NEGATIVE) Urine Benzodiazepines Screen Negative (NEGATIVE) Urine Cocaine Screen Negative (NEGATIVE) Urine Marijuana (THC) Screen Negative (NEGATIVE) White Blood Count Pending Red Blood Count 3.00 M/UL (4.70-6.10) L Hemoglobin 10.1 G/DL (14.2-18.0) L Hematocrit 30.8 % (42.0-52.0) L Mean Corpuscular Volume 103 FL (80-99) H Mean Corpuscular Hemoglobin 33.5 PG (27.0-31.0) H Mean Corpuscular Hemoglobin Concent 32.7 G/DL (32.0-36.0) Red Cell Distribution Width 18.8 % (11.6-14.8) H Platelet Count 149 K/UL (150-450) L Mean Platelet Volume 6.9 FL (6.5-10.1) Neutrophils (%) (Auto) 62.3 % (45.0-75.0) Lymphocytes (%) (Auto) 24.6 % (20.0-45.0) Monocytes (%) (Auto) 8.4 % (1.0-10.0) Eosinophils (%) (Auto) 3.8 % (0.0-3.0) H Basophils (%) (Auto) 0.9 % (0.0-2.0) Lymphocytes Pending Sodium Level 136 MMOL/L (136-145) Potassium Level 3.5 MMOL/L (3.5-5.1) Chloride Level 103 MMOL/L (98-107) Carbon Dioxide Level 23 MMOL/L (21-32) Anion Gap 10 mmol/L (5-15) Blood Urea Nitrogen 11 mg/dL (7-18) Creatinine 1.3 MG/DL (0.55-1.30) Estimat Glomerular Filtration Rate > 60 mL/min (>60) Glucose Level 267 MG/DL (74-106) #H Calcium Level 8.2 MG/DL (8.5-10.1) L Phosphorus Level 2.5 MG/DL (2.5-4.9) Magnesium Level 1.3 MG/DL (1.8-2.4) L Total Bilirubin 0.3 MG/DL (0.2-1.0) Aspartate Amino Transf (AST/SGOT) 31 U/L (15-37) Alanine Aminotransferase (ALT/SGPT) 23 U/L (12-78) Alkaline Phosphatase 82 U/L (46-116) Total Protein 5.7 G/DL (6.4-8.2) L Albumin 3.1 G/DL (3.4-5.0) L Globulin 2.6 g/dL Albumin/Globulin Ratio 1.2 (1.0-2.7) Triglycerides Level 119 MG/DL (30-150) Cholesterol Level 151 MG/DL (< 200) LDL Cholesterol 46 mg/dL (<100) HDL Cholesterol 88 MG/DL (40-60) H Cholesterol/HDL Ratio 1.7 (3.3-4.4) L Percent CD3 Cells Pending Absolute CD3 Count Pending Percent CD4 Cells Pending Absolute CD4 Count Pending T-Lymphocyte CD4/CD8 Ratio Pending Percent CD8 Cells Pending Absolute CD8 Count Pending Height (Feet): 5 Height (Inches): 5.00 Weight (Pounds): 144 General Appearance: WD/WN, no apparent distress, alert Cardiovascular: normal rate Respiratory/Chest: normal breath sounds, no respiratory distress Abdominal Exam: normal bowel sounds, non tender, soft Extremities: normal range of motion, non-tender Jim Cristina NP Sep 09, 2017 10:45
[2017-09-09] MEDS: NEVIRAPINE 400 MG ORAL SCH (11:34)
[2017-09-09 11:51] VITALS: BP 105/67
--- NOTE | 2017-09-09 13:30 | Pulmonology Progress Note ---
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 pt wants to return home Subjective ROS Limited/Unobtainable: No Interval Events: feeling better Allergies: Coded Allergies: PENICILLINS (Unverified Allergy, Unknown, 04/03/14) Objective Last 24 Hour Vital Signs Date Time Temp Pulse Resp B/P (MAP) Pulse Ox O2 Delivery O2 Flow Rate FiO2 09/09/17 11:51 97.3 72 18 105/67 100 97.3 09/09/17 08:48 90 103/61 09/09/17 08:00 97.2 90 18 103/61 97 Room Air 97.2 09/09/17 04:50 97.0 68 18 97/62 98 Room Air 97.0 09/08/17 20:21 97.6 67 17 109/65 97 Room Air 97.6 09/08/17 16:00 98.0 76 18 121/60 99 Room Air 98.0 Intake and Output 09/08/17 09/09/17 19:00 07:00 Intake Total 900 ml 1100 ml Output Total 200 ml 800 ml Balance 700 ml 300 ml Intake IV Total 900 ml 700 ml Other 400 ml Output Urine Total 200 ml 800 ml # Voids 1 General Appearance: WD/WN HEENT: normocephalic, atraumatic Respiratory/Chest: chest wall non-tender, lungs clear Cardiovascular: normal peripheral pulses, normal rate Abdomen: normal bowel sounds, soft, non tender Extremities: no cyanosis 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 Laboratory Tests 09/09/17 00:05: Urine Opiates Screen Negative, Urine Barbiturates Screen Negative, Phencyclidine (PCP) Screen Negative, Urine Amphetamines Screen Negative, Urine Benzodiazepines Screen Negative, Urine Cocaine Screen Negative, Urine Marijuana (THC) Screen Negative 09/09/17 08:10: White Blood Count [Pending], Red Blood Count 3.00L, Hemoglobin 10.1L, Hematocrit 30.8L, Mean Corpuscular Volume 103H, Mean Corpuscular Hemoglobin 33.5H, Mean Corpuscular Hemoglobin Concent 32.7, Red Cell Distribution Width 18.8H, Platelet Count 149L, Mean Platelet Volume 6.9, Neutrophils (%) (Auto) 62.3, Lymphocytes (%) (Auto) 24.6, Monocytes (%) (Auto) 8.4, Eosinophils (%) ( Auto) 3.8H, Basophils (%) (Auto) 0.9, Lymphocytes [Pending], Sodium Level 136, Potassium Level 3.5, Chloride Level 103, Carbon Dioxide Level 23, Anion Gap 10, Blood Urea Nitrogen 11, Creatinine 1.3, Estimat Glomerular Filtration Rate > 60 , Glucose Level 267#H, Calcium Level 8.2L, Phosphorus Level 2.5, Magnesium Level 1.3L, Total Bilirubin 0.3, Aspartate Amino Transf (AST/SGOT) 31, Alanine Aminotransferase (ALT/SGPT) 23, Alkaline Phosphatase 82, Total Protein 5.7L, Albumin 3.1L, Globulin 2.6, Albumin/Globulin Ratio 1.2, Triglycerides Level 119 , Cholesterol Level 151, LDL Cholesterol 46, HDL Cholesterol 88H, Cholesterol/ HDL Ratio 1.7L, Lipase > 2000H, Percent CD3 Cells [Pending], Absolute CD3 Count [Pending], Percent CD4 Cells [Pending], Absolute CD4 Count [Pending], T- Lymphocyte CD4/CD8 Ratio [Pending], Percent CD8 Cells [Pending], Absolute CD8 Count [Pending] Current Medications Medications (Trade) Dose Ordered Sig/Robert Route PRN Reason Start Time Stop Time Status Last Admin Dose Admin Acetaminophen (Tylenol) 650 mg Q4H PRN ORAL fever 09/07/17 22:15 10/07/17 22:14 Dextrose (Dextrose 50%) 25 ml STAT PRN IV Hypoglycemia 09/08/17 09:15 10/07/17 22:14 Dextrose (Dextrose 50%) 50 ml STAT PRN IV Hypoglycemia 09/08/17 09:15 10/08/17 09:14 Diphenhydramine HCl (Benadryl) 25 mg Q6H PRN IVP Itching 09/08/17 09:00 10/08/17 08:59 Diphenhydramine HCl (Benadryl) 25 mg Q6H PRN ORAL Itching/Pruritis 09/07/17 22:15 10/07/17 22:14 Heparin Sodium (Porcine) (Heparin 5000 units/ml) 5,000 units EVERY 12 HOURS SUBQ 09/07/17 22:36 10/07/17 22:35 09/08/17 09:19 Iopamidol (Isovue-300 100ml) 100 ml NOW PRN INJ Radiology Procedure 09/09/17 10:00 09/11/17 09:59 Lorazepam (Ativan 2mg/ml 1ml) 1 mg EVERY 4 HOURS PRN IV agitation 09/07/17 22:15 09/14/17 22:14 Metoclopramide HCl (Reglan) 10 mg EVERY 6 HOURS PRN IVP servere nauasea 09/07/17 22:15 10/07/17 22:14 Metoprolol Succinate (Toprol XL) 25 mg DAILY ORAL 09/08/17 09:00 10/08/17 08:59 09/08/17 09:18 Morphine Sulfate (Morphine Sulfate) 2 mg Q4H PRN IVP severe pain (7-10) 09/07/17 22:45 09/14/17 22:44 Nitroglycerin (Ntg) 0.4 mg Q5M X 3 DOSES PRN SL Prn Chest Pain 09/07/17 22:15 10/07/17 22:14 Non-Formulary Medication (Non-Formulary Med) 1 ea DAILY ORAL 09/09/17 11:00 10/09/17 10:59 09/09/17 11:34 Ondansetron HCl (Zofran) 4 mg Q6H PRN IVP Nausea & Vomiting 09/07/17 22:15 10/07/17 22:14 Pantoprazole (Protonix) 40 mg DAILY IV 09/08/17 09:00 10/08/17 08:59 09/09/17 08:44 Polyethylene Glycol (Miralax) 17 gm HSPRN PRN ORAL Constipation 09/07/17 22:15 10/07/17 22:14 Promethazine HCl 12.5 mg/Sodium Chloride 55.5 ml @ 110 mls/hr Q6H PRN IV Refractory N/V 09/07/17 22:15 10/07/17 22:14 Raltegravir (Isentress) 400 mg EVERY 12 HOURS ORAL 09/08/17 21:00 10/08/17 20:59 09/09/17 08:44 Sodium Chloride 1,000 ml @ 100 mls/hr Q10H IV 09/08/17 09:30 10/07/17 09:29 09/08/17 20:11 Temazepam (Restoril) 15 mg HSPRN PRN ORAL Insomnia 09/07/17 22:15 09/14/17 22:14 09/08/17 22:11 Deborah Shelby MD Sep 09, 2017 13:30
--- NOTE | 2017-09-09 14:05 | General Progress Note ---
Assessment/Plan Problem List: (1) Weak ICD Codes: R53.1 - Weakness SNOMED: 17881001 (2) Diarrhea ICD Codes: R19.7 - Diarrhea, unspecified SNOMED: 39548496 (3) Dehydration ICD Codes: E86.0 - Dehydration SNOMED: 77674394 (4) Dizziness ICD Codes: R42 - Dizziness and giddiness SNOMED: 169743574, [id number] Status: unchanged Assessment/Plan ot pt diet abx ivf cbc bmp am pending egd Subjective Constitutional: Reports: weakness Allergies: Coded Allergies: PENICILLINS (Unverified Allergy, Unknown, 04/03/14) All Systems: reviewed and negative except above Subjective calm in wc pending egd Objective Last 24 Hour Vital Signs Date Time Temp Pulse Resp B/P (MAP) Pulse Ox O2 Delivery O2 Flow Rate FiO2 09/09/17 11:51 97.3 72 18 105/67 100 97.3 09/09/17 08:48 90 103/61 09/09/17 08:00 97.2 90 18 103/61 97 Room Air 97.2 09/09/17 04:50 97.0 68 18 97/62 98 Room Air 97.0 09/08/17 20:21 97.6 67 17 109/65 97 Room Air 97.6 09/08/17 16:00 98.0 76 18 121/60 99 Room Air 98.0 Intake and Output 09/08/17 09/09/17 19:00 07:00 Intake Total 900 ml 1100 ml Output Total 200 ml 800 ml Balance 700 ml 300 ml Intake IV Total 900 ml 700 ml Other 400 ml Output Urine Total 200 ml 800 ml # Voids 1 Laboratory Tests 09/09/17 00:05: Urine Opiates Screen Negative, Urine Barbiturates Screen Negative, Phencyclidine (PCP) Screen Negative, Urine Amphetamines Screen Negative, Urine Benzodiazepines Screen Negative, Urine Cocaine Screen Negative, Urine Marijuana (THC) Screen Negative 09/09/17 08:10: White Blood Count [Pending], Red Blood Count 3.00L, Hemoglobin 10.1L, Hematocrit 30.8L, Mean Corpuscular Volume 103H, Mean Corpuscular Hemoglobin 33.5H, Mean Corpuscular Hemoglobin Concent 32.7, Red Cell Distribution Width 18.8H, Platelet Count 149L, Mean Platelet Volume 6.9, Neutrophils (%) (Auto) 62.3, Lymphocytes (%) (Auto) 24.6, Monocytes (%) (Auto) 8.4, Eosinophils (%) ( Auto) 3.8H, Basophils (%) (Auto) 0.9, Lymphocytes [Pending], Sodium Level 136, Potassium Level 3.5, Chloride Level 103, Carbon Dioxide Level 23, Anion Gap 10, Blood Urea Nitrogen 11, Creatinine 1.3, Estimat Glomerular Filtration Rate > 60 , Glucose Level 267#H, Calcium Level 8.2L, Phosphorus Level 2.5, Magnesium Level 1.3L, Total Bilirubin 0.3, Aspartate Amino Transf (AST/SGOT) 31, Alanine Aminotransferase (ALT/SGPT) 23, Alkaline Phosphatase 82, Total Protein 5.7L, Albumin 3.1L, Globulin 2.6, Albumin/Globulin Ratio 1.2, Triglycerides Level 119 , Cholesterol Level 151, LDL Cholesterol 46, HDL Cholesterol 88H, Cholesterol/ HDL Ratio 1.7L, Lipase > 2000H, Percent CD3 Cells [Pending], Absolute CD3 Count [Pending], Percent CD4 Cells [Pending], Absolute CD4 Count [Pending], T- Lymphocyte CD4/CD8 Ratio [Pending], Percent CD8 Cells [Pending], Absolute CD8 Count [Pending] Height (Feet): 5 Height (Inches): 5.00 Weight (Pounds): 144 General Appearance: alert EENT: normal ENT inspection Neck: normal alignment Cardiovascular: normal peripheral pulses, normal rate, regular rhythm Respiratory/Chest: chest wall non-tender, lungs clear, normal breath sounds Abdomen: normal bowel sounds, non tender, soft Extremities: normal inspection Edema: no edema noted Arm (L), no edema noted Arm (R), no edema noted Leg (L), no edema noted Leg (R), no edema noted Pedal (L), no edema noted Pedal (R), no edema noted Generalized Neurologic: responsive, motor weakness Skin: normal pigmentation, warm/dry Romel Marshall DO Sep 09, 2017 14:05
--- NOTE | 2017-09-09 14:42 | Cardiology Report ---
APPROVED REPORT EXAM: Two-dimensional and M-mode echocardiogram with Doppler and color Doppler. INDICATION Syncope M-Mode DIMENSIONS IVSd1.3 (0.7-1.1cm)Left Atrium (MM)3.6 (1.6-4.0cm) LVDd4.9 (3.5-5.6cm)Aortic Root3.9 (2.0-3.7cm) PWd1.4 (0.7-1.1cm)Aortic Cusp Exc.2.3 (1.5-2.0cm) IVSs1.9 cm LVDs2.8 (2.5-4.0cm) PWs2.0 cm Normal left ventricular chamber size, systolic function and wall motion. Left ventricular ejection fraction estimated to be 65-70 %. Mild left ventricular hypertrophy by 2-D. No evidence of pericardial effusion. All other cardiac chamber sizes are within normal limits. Focal aortic valve sclerosis with adequate cusp excursion. Thickened mitral valve leaflets with normal excursion. Mitral annulus and aortic root calcification. Normal pulmonic valve structure. Normal tricuspid valve structure. IVC at normal size with physiologic collapse. A color flow and spectral Doppler study was performed and revealed: No aortic regurgitation.. Mild mitral regurgitation. Mitral diastolic velocities suggest reduced left ventricular relaxation c/w mild LV diastolic dysfunction (Grade I ). Mild to moderate tricuspid regurgitation. Tricuspid systolic velocities suggests peak right ventricular systolic pressure of 45 mmHg,consistent with mild pulmonary hypertension. No Pulmonic regurgitation present.
--- NOTE | 2017-09-09 15:21 | Cardiac Electrophysiology PN ---
Assessment/Plan Assessment/Plan 1. Dizziness likely due to hypotension, blood pressure was in the 90 and the patient has abdominal pain and vomiting. Echocardiogram showed EF 65%. EKG showed sinus tachycardia at rate of 104, otherwise normal electrocardiogram. 2. History of hypertension, on Toprol-XL 25 mg daily 3. Hyperlipidemia, the patient was on Crestor that will be held in view of the patient's lipase more than 2000. 4. Human immunodeficiency virus.ON HAART 5. Pancreatitis. The patient was evaluated by Dr. Bermeo. Lipase more than 2000 range.Still more than 2000 today DW RN Subjective Subjective Comfortable sitting in the chair. No CP or SOB Objective Last 24 Hour Vital Signs Date Time Temp Pulse Resp B/P (MAP) Pulse Ox O2 Delivery O2 Flow Rate FiO2 09/09/17 11:51 97.3 72 18 105/67 100 97.3 09/09/17 08:48 90 103/61 09/09/17 08:00 97.2 90 18 103/61 97 Room Air 97.2 09/09/17 04:50 97.0 68 18 97/62 98 Room Air 97.0 09/08/17 20:21 97.6 67 17 109/65 97 Room Air 97.6 09/08/17 16:00 98.0 76 18 121/60 99 Room Air 98.0 Intake and Output 09/08/17 09/09/17 19:00 07:00 Intake Total 900 ml 1100 ml Output Total 200 ml 800 ml Balance 700 ml 300 ml Intake IV Total 900 ml 700 ml Other 400 ml Output Urine Total 200 ml 800 ml # Voids 1 Laboratory Tests Test 09/09/17 00:05 09/09/17 08:10 Urine Opiates Screen Negative (NEGATIVE) Urine Barbiturates Screen Negative (NEGATIVE) Phencyclidine (PCP) Screen Negative (NEGATIVE) Urine Amphetamines Screen Negative (NEGATIVE) Urine Benzodiazepines Screen Negative (NEGATIVE) Urine Cocaine Screen Negative (NEGATIVE) Urine Marijuana (THC) Screen Negative (NEGATIVE) White Blood Count Pending Red Blood Count 3.00 M/UL (4.70-6.10) L Hemoglobin 10.1 G/DL (14.2-18.0) L Hematocrit 30.8 % (42.0-52.0) L Mean Corpuscular Volume 103 FL (80-99) H Mean Corpuscular Hemoglobin 33.5 PG (27.0-31.0) H Mean Corpuscular Hemoglobin Concent 32.7 G/DL (32.0-36.0) Red Cell Distribution Width 18.8 % (11.6-14.8) H Platelet Count 149 K/UL (150-450) L Mean Platelet Volume 6.9 FL (6.5-10.1) Neutrophils (%) (Auto) 62.3 % (45.0-75.0) Lymphocytes (%) (Auto) 24.6 % (20.0-45.0) Monocytes (%) (Auto) 8.4 % (1.0-10.0) Eosinophils (%) (Auto) 3.8 % (0.0-3.0) H Basophils (%) (Auto) 0.9 % (0.0-2.0) Lymphocytes Pending Sodium Level 136 MMOL/L (136-145) Potassium Level 3.5 MMOL/L (3.5-5.1) Chloride Level 103 MMOL/L (98-107) Carbon Dioxide Level 23 MMOL/L (21-32) Anion Gap 10 mmol/L (5-15) Blood Urea Nitrogen 11 mg/dL (7-18) Creatinine 1.3 MG/DL (0.55-1.30) Estimat Glomerular Filtration Rate > 60 mL/min (>60) Glucose Level 267 MG/DL (74-106) #H Calcium Level 8.2 MG/DL (8.5-10.1) L Phosphorus Level 2.5 MG/DL (2.5-4.9) Magnesium Level 1.3 MG/DL (1.8-2.4) L Total Bilirubin 0.3 MG/DL (0.2-1.0) Aspartate Amino Transf (AST/SGOT) 31 U/L (15-37) Alanine Aminotransferase (ALT/SGPT) 23 U/L (12-78) Alkaline Phosphatase 82 U/L (46-116) Total Protein 5.7 G/DL (6.4-8.2) L Albumin 3.1 G/DL (3.4-5.0) L Globulin 2.6 g/dL Albumin/Globulin Ratio 1.2 (1.0-2.7) Triglycerides Level 119 MG/DL (30-150) Cholesterol Level 151 MG/DL (< 200) LDL Cholesterol 46 mg/dL (<100) HDL Cholesterol 88 MG/DL (40-60) H Cholesterol/HDL Ratio 1.7 (3.3-4.4) L Lipase > 2000 U/L (73-393) H Percent CD3 Cells Pending Absolute CD3 Count Pending Percent CD4 Cells Pending Absolute CD4 Count Pending T-Lymphocyte CD4/CD8 Ratio Pending Percent CD8 Cells Pending Absolute CD8 Count Pending Microbiology Date/Time Source Procedure Growth Status 09/09/17 09:41 Stool Stool Culture Pending Resulted 09/09/17 09:41 Stool Clostridium difficile Toxin Assay - Final Resulted Objective HEAD AND NECK: No JVD or carotid bruits. LUNGS: Clear. CARDIOVASCULAR: Regular S1 and S2 with no gallop or murmur. ABDOMEN: Soft. EXTREMITIES: No pitting edema. David Moyer MD Sep 09, 2017 15:21
[2017-09-09 15:50] VITALS: BP 125/70
[2017-09-09] MEDS ORDERED: Polyethylene Glycol 238gm bottle ORAL ONE (16:00)
[2017-09-09] MEDS ORDERED: Magnesium Citrate Liq Btl ORAL ONE (16:00)
[2017-09-09] MEDS ORDERED: Bisacodyl EC 5mg tab ORAL ONE (16:00)
--- NOTE | 2017-09-09 16:38 | Diagnostic Imaging Report ---
Indication: Abdominal pain Technique: Continuous helical transaxial imaging of the chest, abdomen and pelvis was obtained from the lung bases to the pubic symphysis during intravenous contrast administration. Multiple phases of enhancement obtained. Coronal 2-D reformats were also obtained. Study obtained in a Siemens sensation [address] Automatic Exposure Control was utilized. Total Dose length Product (DLP): 1303.[address] Dose Index Volume (CTDIvol): 15.63,13.02 mGy Comparison: None Findings: There is an aortic dissection present. The superior part of the dissection is involving the proximal portion of the descending thoracic aorta just distal to the origin of the left subclavian artery. Both the true lumen and false lumen opacified with contrast material. The false lumen is more densely opacified during this phase of the study. The left subclavian artery, left common carotid and right innominate arteries all arise from the true lumen. Within the abdomen the celiac artery and superior mesenteric artery arise from the true lumen. The right renal artery arises from the true lumen. The left renal artery arises from the false lumen. The lower end of the dissection is at the aortic bifurcation. The iliac arteries appear normal. There is a femoral artery to femoral artery arterial bypass graft present. The bypass graft patency status is unknown. There is low attenuation within portions of the graft which may be thrombosed. Please correlate clinically. The study was not performed as a CTA. Focal reticular densities are demonstrated within the anterior part of the left upper lobe. This has the appearance of chronic disease and may be reflective of scarring. There is emphysema present within the lungs bilaterally with areas of hyperlucency especially within the upper lobes. There is no airspace disease. There is no pleural effusion or evidence of adenopathy. The axilla appear clear. The gallbladder is contracted. There are calcifications in the head of the pancreas nonspecific but may be related to previous pancreatitis. Spleen is normal in size. The kidneys appear somewhat atrophic. There is no hydronephrosis identified. The appendix is normal. No free fluid or bowel obstruction identified. Urinary bladder is unremarkable. There is a small left inguinal hernia containing fat. IMPRESSION: [place] type B dissection involving the thoracic and abdominal aorta. Femoral artery to femoral artery bypass graft. Patency status unknown. Graft is probably thrombosed, at least partially. Reticular infiltrate in the left upper lobe. This may be chronic. Pulmonary emphysema. Focal chronic calcific pancreatitis involving the pancreatic head Small left inguinal hernia containing fat. Critical value communication. Findings were discussed via telephone with Dr. Bermeo via telephone 4:30 PM, 09/09/2017. The CT scanner at [facility] is accredited by the [employer] and the scans are performed using dose optimization techniques as appropriate to a performed exam including Automatic Exposure control.
--- NOTE | 2017-09-09 17:47 | General Progress Note ---
Assessment/Plan Assessment/Plan Anxiety d/o -Ativan 1mg q6hr prn Subjective Date patient seen: Sep 09, 2017 Neurologic/Psychiatric: Reports: anxiety, depressed Allergies: Coded Allergies: PENICILLINS (Unverified Allergy, Unknown, 04/03/14) Objective Last 24 Hour Vital Signs Date Time Temp Pulse Resp B/P (MAP) Pulse Ox O2 Delivery O2 Flow Rate FiO2 09/09/17 15:50 96.4 71 18 125/70 100 96.4 09/09/17 11:51 97.3 72 18 105/67 100 97.3 09/09/17 08:48 90 103/61 09/09/17 08:00 97.2 90 18 103/61 97 Room Air 97.2 09/09/17 04:50 97.0 68 18 97/62 98 Room Air 97.0 09/08/17 20:21 97.6 67 17 109/65 97 Room Air 97.6 Intake and Output 09/08/17 09/09/17 19:00 07:00 Intake Total 900 ml 1100 ml Output Total 200 ml 800 ml Balance 700 ml 300 ml IV Total 900 ml 700 ml Other 400 ml Output Urine Total 200 ml 800 ml # Voids 1 Laboratory Tests 09/09/17 00:05: Urine Opiates Screen Negative, Urine Barbiturates Screen Negative, Phencyclidine (PCP) Screen Negative, Urine Amphetamines Screen Negative, Urine Benzodiazepines Screen Negative, Urine Cocaine Screen Negative, Urine Marijuana (THC) Screen Negative 09/09/17 08:10: White Blood Count [Pending], Red Blood Count 3.00L, Hemoglobin 10.1L, Hematocrit 30.8L, Mean Corpuscular Volume 103H, Mean Corpuscular Hemoglobin 33.5H, Mean Corpuscular Hemoglobin Concent 32.7, Red Cell Distribution Width 18.8H, Platelet Count 149L, Mean Platelet Volume 6.9, Neutrophils (%) (Auto) 62.3, Lymphocytes (%) (Auto) 24.6, Monocytes (%) (Auto) 8.4, Eosinophils (%) ( Auto) 3.8H, Basophils (%) (Auto) 0.9, Lymphocytes [Pending], Sodium Level 136, Potassium Level 3.5, Chloride Level 103, Carbon Dioxide Level 23, Anion Gap 10, Blood Urea Nitrogen 11, Creatinine 1.3, Estimat Glomerular Filtration Rate > 60 , Glucose Level 267#H, Calcium Level 8.2L, Phosphorus Level 2.5, Magnesium Level 1.3L, Total Bilirubin 0.3, Aspartate Amino Transf (AST/SGOT) 31, Alanine Aminotransferase (ALT/SGPT) 23, Alkaline Phosphatase 82, Total Protein 5.7L, Albumin 3.1L, Globulin 2.6, Albumin/Globulin Ratio 1.2, Triglycerides Level 119 , Cholesterol Level 151, LDL Cholesterol 46, HDL Cholesterol 88H, Cholesterol/ HDL Ratio 1.7L, Lipase > 2000H, Percent CD3 Cells [Pending], Absolute CD3 Count [Pending], Percent CD4 Cells [Pending], Absolute CD4 Count [Pending], T- Lymphocyte CD4/CD8 Ratio [Pending], Percent CD8 Cells [Pending], Absolute CD8 Count [Pending] Height (Feet): 5 Height (Inches): 5.00 Weight (Pounds): 144 General Appearance: WD/WN, no apparent distress, alert Neurologic: oriented x 3, responsive, depressed affect Sudhakar Chao M.D. Sep 09, 2017 17:47
--- NOTE | 2017-09-09 18:12 | Infectious Diseases Prog Note ---
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 Femoral artery to femoral artery bypass graft. Patency status unknown. Graft is probably thrombosed, at least partially. Reticular infiltrate in the left upper lobe. This may be chronic. Pulmonary emphysema. Focal chronic calcific pancreatitis involving the pancreatic head. Small left inguinal hernia containing fat. -Abd US: Nonmobile nonshadowing echogenic gallbladder intraluminal foci, probably small polyps, less likely wall adherent stones. Negative for dilated ducts. -Cdiff neg -stool cx p Afebrile, no leukocytosis -u/a neg -CXR: no acute disease Type B aortic dissection (thoracic, abdominal aorta)- found incidentally Pancreatitis, likely chronic per CT Dehydration DAJA, improving Dizziness -MRI brain: Chronic and age-related changes. Negative for acute intracranial bleed, mass effect, or infarct Orthostatic hypotension HIV- well controlled on dual ARV (confirmed with [facility] pharmacy; per them patient previously on Atripla and VL UD and CD4>1000 on 03/2017) HTN HLD Plan: -Continue to monitor off abx -f/u stool cx, CD4 -Monitor CBC/BMP, temperatures -aspiration precautions -Continue ARV as above -Cards, GI f/u Thank you for this consultation. Will continue to follow along with you. Discussed with RN. Subjective Allergies: Coded Allergies: PENICILLINS (Unverified Allergy, Unknown, 04/03/14) Objective Vital Signs Last 24 Hour Vital Signs Date Time Temp Pulse Resp B/P (MAP) Pulse Ox O2 Delivery O2 Flow Rate FiO2 09/09/17 15:50 96.4 71 18 125/70 100 96.4 09/09/17 11:51 97.3 72 18 105/67 100 97.3 09/09/17 08:48 90 103/61 09/09/17 08:00 97.2 90 18 103/61 97 Room Air 97.2 09/09/17 04:50 97.0 68 18 97/62 98 Room Air 97.0 09/08/17 20:21 97.6 67 17 109/65 97 Room Air 97.6 Height (Feet): 5 Height (Inches): 5.00 Weight (Pounds): 144 Objective General Appearance: WD/WN Lines, tubes and drains: peripheral HEENT: normocephalic, atraumatic Neck: non-tender, normal alignment Respiratory/Chest: chest wall non-tender, lungs clear Breasts: no masses Cardiovascular/Chest: normal peripheral pulses, normal rate Abdomen: normal bowel sounds Genitourinary/Rectal: normal genital exam Extremities: normal range of motion Microbiology Date/Time Source Procedure Growth Status 09/09/17 09:41 Stool Stool Culture Pending Resulted 09/09/17 09:41 Stool Clostridium difficile Toxin Assay - Final Resulted Laboratory Tests Test 09/09/17 00:05 09/09/17 08:10 Urine Opiates Screen Negative (NEGATIVE) Urine Barbiturates Screen Negative (NEGATIVE) Phencyclidine (PCP) Screen Negative (NEGATIVE) Urine Amphetamines Screen Negative (NEGATIVE) Urine Benzodiazepines Screen Negative (NEGATIVE) Urine Cocaine Screen Negative (NEGATIVE) Urine Marijuana (THC) Screen Negative (NEGATIVE) White Blood Count Pending Red Blood Count 3.00 M/UL (4.70-6.10) L Hemoglobin 10.1 G/DL (14.2-18.0) L Hematocrit 30.8 % (42.0-52.0) L Mean Corpuscular Volume 103 FL (80-99) H Mean Corpuscular Hemoglobin 33.5 PG (27.0-31.0) H Mean Corpuscular Hemoglobin Concent 32.7 G/DL (32.0-36.0) Red Cell Distribution Width 18.8 % (11.6-14.8) H Platelet Count 149 K/UL (150-450) L Mean Platelet Volume 6.9 FL (6.5-10.1) Neutrophils (%) (Auto) 62.3 % (45.0-75.0) Lymphocytes (%) (Auto) 24.6 % (20.0-45.0) Monocytes (%) (Auto) 8.4 % (1.0-10.0) Eosinophils (%) (Auto) 3.8 % (0.0-3.0) H Basophils (%) (Auto) 0.9 % (0.0-2.0) Lymphocytes Pending Sodium Level 136 MMOL/L (136-145) Potassium Level 3.5 MMOL/L (3.5-5.1) Chloride Level 103 MMOL/L (98-107) Carbon Dioxide Level 23 MMOL/L (21-32) Anion Gap 10 mmol/L (5-15) Blood Urea Nitrogen 11 mg/dL (7-18) Creatinine 1.3 MG/DL (0.55-1.30) Estimat Glomerular Filtration Rate > 60 mL/min (>60) Glucose Level 267 MG/DL (74-106) #H Calcium Level 8.2 MG/DL (8.5-10.1) L Phosphorus Level 2.5 MG/DL (2.5-4.9) Magnesium Level 1.3 MG/DL (1.8-2.4) L Total Bilirubin 0.3 MG/DL (0.2-1.0) Aspartate Amino Transf (AST/SGOT) 31 U/L (15-37) Alanine Aminotransferase (ALT/SGPT) 23 U/L (12-78) Alkaline Phosphatase 82 U/L (46-116) Total Protein 5.7 G/DL (6.4-8.2) L Albumin 3.1 G/DL (3.4-5.0) L Globulin 2.6 g/dL Albumin/Globulin Ratio 1.2 (1.0-2.7) Triglycerides Level 119 MG/DL (30-150) Cholesterol Level 151 MG/DL (< 200) LDL Cholesterol 46 mg/dL (<100) HDL Cholesterol 88 MG/DL (40-60) H Cholesterol/HDL Ratio 1.7 (3.3-4.4) L Lipase > 2000 U/L (73-393) H Percent CD3 Cells Pending Absolute CD3 Count Pending Percent CD4 Cells Pending Absolute CD4 Count Pending T-Lymphocyte CD4/CD8 Ratio Pending Percent CD8 Cells Pending Absolute CD8 Count Pending Current Medications Medications (Trade) Dose Ordered Sig/Robert Route PRN Reason Start Time Stop Time Status Last Admin Dose Admin Acetaminophen (Tylenol) 650 mg Q4H PRN ORAL fever 09/07/17 22:15 10/07/17 22:14 Dextrose (Dextrose 50%) 25 ml STAT PRN IV Hypoglycemia 09/08/17 09:15 10/07/17 22:14 Dextrose (Dextrose 50%) 50 ml STAT PRN IV Hypoglycemia 09/08/17 09:15 10/08/17 09:14 Diphenhydramine HCl (Benadryl) 25 mg Q6H PRN IVP Itching 09/08/17 09:00 10/08/17 08:59 Diphenhydramine HCl (Benadryl) 25 mg Q6H PRN ORAL Itching/Pruritis 09/07/17 22:15 10/07/17 22:14 Heparin Sodium (Porcine) (Heparin 5000 units/ml) 5,000 units EVERY 12 HOURS SUBQ 09/07/17 22:36 10/07/17 22:35 09/08/17 09:19 Iopamidol (Isovue-300 100ml) 100 ml NOW PRN INJ Radiology Procedure 09/09/17 10:00 09/11/17 09:59 Lorazepam (Ativan 2mg/ml 1ml) 1 mg EVERY 4 HOURS PRN IV agitation 09/07/17 22:15 09/14/17 22:14 Metoclopramide HCl (Reglan) 10 mg EVERY 6 HOURS PRN IVP servere nauasea 09/07/17 22:15 10/07/17 22:14 Metoprolol Succinate (Toprol XL) 25 mg DAILY ORAL 09/08/17 09:00 10/08/17 08:59 09/08/17 09:18 Morphine Sulfate (Morphine Sulfate) 2 mg Q4H PRN IVP severe pain (7-10) 09/07/17 22:45 09/14/17 22:44 Nitroglycerin (Ntg) 0.4 mg Q5M X 3 DOSES PRN SL Prn Chest Pain 09/07/17 22:15 10/07/17 22:14 Non-Formulary Medication (Non-Formulary Med) 1 ea DAILY ORAL 09/09/17 11:00 10/09/17 10:59 09/09/17 11:34 Ondansetron HCl (Zofran) 4 mg Q6H PRN IVP Nausea & Vomiting 09/07/17 22:15 10/07/17 22:14 Pantoprazole (Protonix) 40 mg DAILY IV 09/08/17 09:00 10/08/17 08:59 09/09/17 08:44 Polyethylene Glycol (Miralax) 17 gm HSPRN PRN ORAL Constipation 09/07/17 22:15 10/07/17 22:14 Promethazine HCl 12.5 mg/Sodium Chloride 55.5 ml @ 110 mls/hr Q6H PRN IV Refractory N/V 09/07/17 22:15 10/07/17 22:14 Raltegravir (Isentress) 400 mg EVERY 12 HOURS ORAL 09/08/17 21:00 10/08/17 20:59 09/09/17 08:44 Sodium Chloride 1,000 ml @ 100 mls/hr Q10H IV 09/08/17 09:30 10/07/17 09:29 09/09/17 17:08 Sodium Phosphate (Fleet's Sodium Phosl Enema) 133 ml ONCE ONCE RECTAL 09/09/17 23:00 09/09/17 23:01 Temazepam (Restoril) 15 mg HSPRN PRN ORAL Insomnia 09/07/17 22:15 09/14/17 22:14 09/08/17 22:11 Laura Lorenzana M.D. Sep 09, 2017 18:12
[2017-09-09 20:00] VITALS: BP 130/75
[2017-09-09] MEDS ORDERED: Fleet's Enema 133ml RECTAL ONE (23:00)
[2017-09-10] VITALS (8 sets, daily range): BP systolic 108–134; BP diastolic 61–80
--- NOTE | 2017-09-10 06:42 | Anethesia Preoperative Eval ---
Anesthesia Pre-op PMH/ROS General Date of Evaluation: Sep 10, 2017 Time of Evaluation: 06:39 Anesthesiologist: miguel ASA Score: ASA 3 Mallampati Score Class I : Soft palate, uvula, fauces, pillars visible Class II: Soft palate, uvula, fauces visible Class III: Soft palate, base of uvula visible Class IV: Only hard plate visible Mallampati Classification: Class II Surgeon: naveen Diagnosis: intractable diarrhea Surgical Procedure: egd/colonoscopy Anesthesia History: none Social History: smoking - former smoker, alcohol use Family History: no anesthesia problems Allergies: Coded Allergies: PENICILLINS (Unverified Allergy, Unknown, 04/03/14) Medications: see eMAR Past Medical History Cardiovascular: Reports: HTN, other - hypercholesterolemia Pulmonary: Reports: other - oxygen dependent Gastrointestinal/Genitourinary: Reports: other - pancreatitis Hematology/Immune: Reports: other - hiv Anesthesia Pre-op Phys. Exam Physician Exam Last Vital Signs Date Time Temp Pulse Resp B/P (MAP) Pulse Ox O2 Delivery O2 Flow Rate FiO2 09/10/17 04:00 97.4 79 18 108/61 98 97.4 09/09/17 08:00 Room Air Constitutional: NAD Neurologic: CN 2-12 intact Cardiovascular: RRR Respiratory: CTA Gastrointestinal: S/NT/ND Airway Exam Mallampati Score: Class II MO: full Neck: supple TMD: 2fb ROM: full Teeth: missing Anesthesia Pre-op A/P Labs Hematology Test 09/09/17 08:10 White Blood Count Pending Red Blood Count 3.00 M/UL (4.70-6.10) L Hemoglobin 10.1 G/DL (14.2-18.0) L Hematocrit 30.8 % (42.0-52.0) L Mean Corpuscular Volume 103 FL (80-99) H Mean Corpuscular Hemoglobin 33.5 PG (27.0-31.0) H Mean Corpuscular Hemoglobin Concent 32.7 G/DL (32.0-36.0) Red Cell Distribution Width 18.8 % (11.6-14.8) H Platelet Count 149 K/UL (150-450) L Mean Platelet Volume 6.9 FL (6.5-10.1) Neutrophils (%) (Auto) 62.3 % (45.0-75.0) Lymphocytes (%) (Auto) 24.6 % (20.0-45.0) Monocytes (%) (Auto) 8.4 % (1.0-10.0) Eosinophils (%) (Auto) 3.8 % (0.0-3.0) H Basophils (%) (Auto) 0.9 % (0.0-2.0) Lymphocytes Pending Chemistry Test 09/09/17 08:10 Sodium Level 136 MMOL/L (136-145) Potassium Level 3.5 MMOL/L (3.5-5.1) Chloride Level 103 MMOL/L (98-107) Carbon Dioxide Level 23 MMOL/L (21-32) Anion Gap 10 mmol/L (5-15) Blood Urea Nitrogen 11 mg/dL (7-18) Creatinine 1.3 MG/DL (0.55-1.30) Estimat Glomerular Filtration Rate > 60 mL/min (>60) Glucose Level 267 MG/DL (74-106) #H Calcium Level 8.2 MG/DL (8.5-10.1) L Phosphorus Level 2.5 MG/DL (2.5-4.9) Magnesium Level 1.3 MG/DL (1.8-2.4) L Total Bilirubin 0.3 MG/DL (0.2-1.0) Aspartate Amino Transf (AST/SGOT) 31 U/L (15-37) Alanine Aminotransferase (ALT/SGPT) 23 U/L (12-78) Alkaline Phosphatase 82 U/L (46-116) Total Protein 5.7 G/DL (6.4-8.2) L Albumin 3.1 G/DL (3.4-5.0) L Globulin 2.6 g/dL Albumin/Globulin Ratio 1.2 (1.0-2.7) Triglycerides Level 119 MG/DL (30-150) Cholesterol Level 151 MG/DL (< 200) LDL Cholesterol 46 mg/dL (<100) HDL Cholesterol 88 MG/DL (40-60) H Cholesterol/HDL Ratio 1.7 (3.3-4.4) L Lipase > 2000 U/L (73-393) H Risk Assessment & Plan Assessment: asa3 Plan: mac Status Change Before Surgery: No Pre-Antibiotics Drug: Renae Vera MD Sep 10, 2017 06:42
[2017-09-10] MEDS ORDERED: fentaNYL 100 mcg/2 mL IV PRN (06:45)
[2017-09-10] MEDS ORDERED: DiphenhydrAMINE 50mg/ml Inj IVP PRN (06:45)
[2017-09-10] MEDS ORDERED: Midazolam 2mg/2ml Inj IVP PRN (06:45)
[2017-09-10] MEDS ORDERED: Atropine Inj 1mg/10ml Syr IV PRN (06:45)
[2017-09-10] MEDS: Heparin 5000 units/ml inj SUBQ SCH ×2 (08:27→20:24)
--- NOTE | 2017-09-10 08:37 | Nephrology Progress Note ---
Assessment/Plan Assessment/Plan 1. Hyponatremia- due to volume depletion, resolved 2. DAJA- due to volume depletion and hypotension - renal US negative (benign renal cyst) - Cr 1.3 and stable - OK for DC from renal point 3. N/V- resolved 4. HIV- HAART 5. Dehydration- resolved Subjective Date patient seen: Sep 10, 2017 Time patient seen: 08:36 ROS Limited/Unobtainable: No Allergies: Coded Allergies: PENICILLINS (Unverified Allergy, Unknown, 04/03/14) All Systems: reviewed and negative except above Subjective Patient feels much better. Awaiting colonoscopy today Objective Last 24 Hour Vital Signs Date Time Temp Pulse Resp B/P (MAP) Pulse Ox O2 Delivery O2 Flow Rate FiO2 09/10/17 04:00 97.4 79 18 108/61 98 97.4 09/10/17 00:00 97.3 79 18 132/72 95 97.3 09/09/17 20:00 97.2 73 18 130/75 98 97.2 09/09/17 15:50 96.4 71 18 125/70 100 96.4 09/09/17 11:51 97.3 72 18 105/67 100 97.3 09/09/17 08:48 90 103/61 Intake and Output 09/09/17 09/10/17 19:00 07:00 Intake Total 1100 ml 1100 ml Output Total 300 ml 650 ml Balance 800 ml 450 ml Intake Oral 1000 ml IV Total 100 ml 1100 ml Output Urine Total 300 ml 650 ml # Bowel Movements 1 8 Height (Feet): 5 Height (Inches): 5.00 Weight (Pounds): 144 General Appearance: no apparent distress, alert EENT: normal ENT inspection Neck: normal alignment, supple Cardiovascular: normal rate, regular rhythm Respiratory/Chest: lungs clear, normal breath sounds Abdomen: non tender, soft Edema: no edema noted Arm (L), no edema noted Arm (R), no edema noted Leg (L), no edema noted Leg (R), no edema noted Pedal (L), no edema noted Pedal (R), no edema noted Generalized Gurmeet Drake M.D. Sep 10, 2017 08:37
[2017-09-10] MEDS: Pantoprazole Inj IV SCH ×2 (09:00→09:16)
[2017-09-10] MEDS: Metoprolol Succinate XL 25mg tab ORAL SCH (09:00)
[2017-09-10] MEDS: NEVIRAPINE 400 MG ORAL SCH (09:16)
[2017-09-10] MEDS: Isentress 400mg tab ORAL SCH ×2 (09:16→20:23)
[2017-09-10] MEDS ORDERED: Propofol 200mg/20ml IV ONE (10:30)
[2017-09-10] MEDS ORDERED: Lidocaine 1% MPF 10mg/ml 5ml ONE (10:30)
[2017-09-10 10:54] LABS: EOSINOPHILS % (AUTO) 3.9 % (0.0-3.0); HEMATOCRIT 33.2 % (42.0-52.0); HEMOGLOBIN 10.5 G/DL (14.2-18.0); LYMPHOCYTES % (AUTO) 29.8 % (20.0-45.0); MEAN CORPUSCULAR VOLUME 102 FL (80-99); MONOCYTES % (AUTO) 11.1 % (1.0-10.0); NEUTROPHILS % (AUTO) 54.2 % (45.0-75.0); PLATELET COUNT 179 K/UL (150-450); RED BLOOD COUNT 3.25 M/UL (4.70-6.10); RED CELL DISTRIBUTION WIDTH 18.8 % (11.6-14.8); WHITE BLOOD COUNT 5.2 K/UL (4.8-10.8)
--- NOTE | 2017-09-10 11:05 | Pre-Procedure Note/Attestation ---
Pre-Procedure Note/Attestation Complete Prior to Procedure Planned Procedure: not applicable Procedure Narrative: esophagogastroduodenoscopy and colonoscopy Indications for Procedure Pre-Operative Diagnosis: anemia, elevated CEA Attestation I attest that I discussed the nature of the procedure; its benefits; risks and complications; and alternatives (and the risks and benefits of such alternatives ), prior to the procedure, with the patient (or the patient's legal solar sales representative). I attest that, if there was a reasonable possibility of needing a blood transfusion, the patient (or the patient's legal solar sales representative) was given the [facility] standardized written summary, pursuant to the [place] Blood Safety Act ([place] Health and Safety Code # 1645, as amended). I attest that I re-evaluated the patient just prior to the surgery and that there has been no change in the patient's H&P, except as documented below: Haider Bermeo MD Sep 10, 2017 11:05
[2017-09-10] MEDS ORDERED: NS 500ML IVPB ONE (11:15)
[2017-09-10 11:42] LABS: BLOOD UREA NITROGEN 6 mg/dL (7-18); CALCIUM 9.2 MG/DL (8.5-10.1); CREATININE 1.1 MG/DL (0.55-1.30)
--- NOTE | 2017-09-10 11:48 | Endoscopy Procedure Note ---
Endoscopy Procedure Note General Indication for Procedure: anemia, elevated CEA Procedures Performed: EGD, colonoscopy Operative Findings/Diagnosis: gastritis, hemorrhoids, Specimen: yes Pt Tolerated Procedure Well: Yes Estimated Blood Loss: none Anesthesia Anesthesiologist: tete Anesthesia: MAC Inserted Devices Implant(s) used?: No Quality Quality of Bowel Preparation: Good Did scope reach the cecum?: Yes Was there any complications?: No GI Core Measures 50 yrs or older w/o bx or poly: Not Applicable 10yrs. F/U not recommended: Not Applicable Haider Bermeo MD Sep 10, 2017 11:48
[2017-09-10 11:49] LABS: ANION GAP 8 mmol/L (5-15); CARBON DIOXIDE 28 MMOL/L (21-32); CHLORIDE 101 MMOL/L (98-107); POTASSIUM 4.6 MMOL/L (3.5-5.1); SODIUM 137 MMOL/L (136-145)
--- NOTE | 2017-09-10 12:19 | Infectious Diseases Prog Note ---
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 Femoral artery to femoral artery bypass graft. Patency status unknown. Graft is probably thrombosed, at least partially. Reticular infiltrate in the left upper lobe. This may be chronic. Pulmonary emphysema. Focal chronic calcific pancreatitis involving the pancreatic head. Small left inguinal hernia containing fat. -Abd US: Nonmobile nonshadowing echogenic gallbladder intraluminal foci, probably small polyps, less likely wall adherent stones. Negative for dilated ducts. -Cdiff neg -stool cx normal fecal tolu to date Afebrile, no leukocytosis -u/a neg -CXR: no acute disease Type B aortic dissection (thoracic, abdominal aorta)- found incidentally Pancreatitis, likely chronic per CT Dehydration DAJA, improving Dizziness -MRI brain: Chronic and age-related changes. Negative for acute intracranial bleed, mass effect, or infarct Orthostatic hypotension HIV- well controlled on dual ARV (confirmed with [facility] pharmacy; per them patient previously on Atripla and VL UD and CD4>1000 on 03/2017) -CD4 462 (42%) HTN HLD Plan: -Continue to monitor off abx -f/u stool cx, CD4 -Monitor CBC/BMP, temperatures -aspiration precautions -Continue ARV as above -Cards, GI f/u -management of Type B aortic dissection per primary and cardiology. -Needs repeat CD4 with PCP. Thank you for this consultation. Will continue to follow along with you. Discussed with RN. Subjective Allergies: Coded Allergies: PENICILLINS (Unverified Allergy, Unknown, 04/03/14) Subjective afebrile no leukocytosis Objective Vital Signs Last 24 Hour Vital Signs Date Time Temp Pulse Resp B/P (MAP) Pulse Ox O2 Delivery O2 Flow Rate FiO2 09/10/17 12:04 75 15 122/69 100 Room Air 09/10/17 11:59 64 13 123/74 100 Nasal Cannula 3 09/10/17 11:54 98.2 86 18 134/71 100 Nasal Cannula 3 98.2 09/10/17 09:00 70 123/73 09/10/17 04:00 97.4 79 18 108/61 98 97.4 09/10/17 00:00 97.3 79 18 132/72 95 97.3 09/09/17 20:00 97.2 73 18 130/75 98 97.2 09/09/17 15:50 96.4 71 18 125/70 100 96.4 Height (Feet): 5 Height (Inches): 5.00 Weight (Pounds): 144 Objective General Appearance: WD/WN Lines, tubes and drains: peripheral HEENT: normocephalic, atraumatic Neck: non-tender, normal alignment Respiratory/Chest: chest wall non-tender, lungs clear Breasts: no masses Cardiovascular/Chest: normal peripheral pulses, normal rate Abdomen: normal bowel sounds Genitourinary/Rectal: normal genital exam Extremities: normal range of motion Microbiology Date/Time Source Procedure Growth Status 09/09/17 09:41 Stool Stool Culture - Preliminary NORMAL FECAL TOLU. Resulted 09/09/17 09:41 Stool Clostridium difficile Toxin Assay - Final Resulted Laboratory Tests Test 09/10/17 10:35 White Blood Count 5.2 K/UL (4.8-10.8) Red Blood Count 3.25 M/UL (4.70-6.10) L Hemoglobin 10.5 G/DL (14.2-18.0) L Hematocrit 33.2 % (42.0-52.0) L Mean Corpuscular Volume 102 FL (80-99) H Mean Corpuscular Hemoglobin 32.2 PG (27.0-31.0) H Mean Corpuscular Hemoglobin Concent 31.5 G/DL (32.0-36.0) L Red Cell Distribution Width 18.8 % (11.6-14.8) H Platelet Count 179 K/UL (150-450) Mean Platelet Volume 6.6 FL (6.5-10.1) Neutrophils (%) (Auto) 54.2 % (45.0-75.0) Lymphocytes (%) (Auto) 29.8 % (20.0-45.0) Monocytes (%) (Auto) 11.1 % (1.0-10.0) H Eosinophils (%) (Auto) 3.9 % (0.0-3.0) H Basophils (%) (Auto) 1.0 % (0.0-2.0) Prothrombin Time 10.5 SEC (9.30-11.50) Prothromb Time International Ratio 1.0 (0.9-1.1) Activated Partial Thromboplast Time 27 SEC (23-33) Sodium Level 137 MMOL/L (136-145) Potassium Level 4.6 MMOL/L (3.5-5.1) Chloride Level 101 MMOL/L (98-107) Carbon Dioxide Level 28 MMOL/L (21-32) Anion Gap 8 mmol/L (5-15) Blood Urea Nitrogen 6 mg/dL (7-18) L Creatinine 1.1 MG/DL (0.55-1.30) Estimat Glomerular Filtration Rate > 60 mL/min (>60) Glucose Level 147 MG/DL (74-106) #H Calcium Level 9.2 MG/DL (8.5-10.1) Current Medications Medications (Trade) Dose Ordered Sig/Robert Route PRN Reason Start Time Stop Time Status Last Admin Dose Admin Acetaminophen (Tylenol) 650 mg Q4H PRN ORAL fever 09/07/17 22:15 10/07/17 22:14 Atropine Sulfate (Atropine) 0.5 mg Q5M PRN IV bpm less than 45 09/10/17 06:45 09/10/17 15:00 Dextrose (Dextrose 50%) 25 ml STAT PRN IV Hypoglycemia 09/08/17 09:15 10/07/17 22:14 Dextrose (Dextrose 50%) 50 ml STAT PRN IV Hypoglycemia 09/08/17 09:15 10/08/17 09:14 Diphenhydramine HCl (Benadryl) 25 mg Q15M PRN IVP Itching 09/10/17 06:45 09/10/17 15:00 Diphenhydramine HCl (Benadryl) 25 mg Q6H PRN IVP Itching 09/08/17 09:00 10/08/17 08:59 Diphenhydramine HCl (Benadryl) 25 mg Q6H PRN ORAL Itching/Pruritis 09/07/17 22:15 10/07/17 22:14 Fentanyl Citrate (Sublimaze 100 mcg/2 mL) 25 mcg Q10M PRN IV Moderate Pain (Pain Scale 4-6) 09/10/17 06:45 09/10/17 15:00 Heparin Sodium (Porcine) (Heparin 5000 units/ml) 5,000 units EVERY 12 HOURS SUBQ 6/25/18 22:36 10/07/17 22:35 09/08/17 09:19 Hydralazine HCl (Apresoline) 5 mg Q30M PRN IV SBP>160 OR___/DBP>90 OR___ 09/10/17 06:45 09/10/17 15:00 Iopamidol (Isovue-300 100ml) 100 ml NOW PRN INJ Radiology Procedure 09/09/17 10:00 09/11/17 09:59 Lorazepam (Ativan 2mg/ml 1ml) 1 mg EVERY 4 HOURS PRN IV agitation 09/07/17 22:15 09/14/17 22:14 Metoclopramide HCl (Reglan) 10 mg EVERY 6 HOURS PRN IVP servere nauasea 09/07/17 22:15 10/07/17 22:14 Metoprolol Succinate (Toprol XL) 25 mg DAILY ORAL 09/08/17 09:00 10/08/17 08:59 09/08/17 09:18 Midazolam HCl (Versed 2mg/2ml vial) 1 mg Q15M PRN IVP For Anxiety 09/10/17 06:45 09/10/17 15:00 Morphine Sulfate (Morphine Sulfate) 2 mg Q4H PRN IVP severe pain (7-10) 09/07/17 22:45 09/14/17 22:44 Nitroglycerin (Ntg) 0.4 mg Q5M X 3 DOSES PRN SL Prn Chest Pain 09/07/17 22:15 10/07/17 22:14 Non-Formulary Medication (Non-Formulary Med) 1 ea DAILY ORAL 09/09/17 11:00 10/09/17 10:59 09/10/17 09:16 Ondansetron HCl (Zofran) 4 mg Q1H PRN IVP Nausea & Vomiting 09/10/17 06:45 09/10/17 15:00 Ondansetron HCl (Zofran) 4 mg Q6H PRN IVP Nausea & Vomiting 09/07/17 22:15 10/07/17 22:14 Pantoprazole (Protonix) 40 mg DAILY IV 09/08/17 09:00 10/08/17 08:59 09/09/17 08:44 Polyethylene Glycol (Miralax) 17 gm HSPRN PRN ORAL Constipation 09/07/17 22:15 10/07/17 22:14 Promethazine HCl 12.5 mg/Sodium Chloride 55.5 ml @ 110 mls/hr Q6H PRN IV Refractory N/V 09/07/17 22:15 10/07/17 22:14 Raltegravir (Isentress) 400 mg EVERY 12 HOURS ORAL 09/08/17 21:00 10/08/17 20:59 09/10/17 09:16 Sodium Chloride 1,000 ml @ 10 mls/hr Q24H IVLG 09/10/17 06:38 09/10/17 15:00 Sodium Chloride 1,000 ml @ 100 mls/hr Q10H IV 09/08/17 09:30 10/07/17 09:29 09/10/17 02:27 Temazepam (Restoril) 15 mg HSPRN PRN ORAL Insomnia 09/07/17 22:15 09/14/17 22:14 09/10/17 02:24 Laura Lorenzana M.D. Sep 10, 2017 12:19
--- NOTE | 2017-09-10 12:28 | General Progress Note ---
Assessment/Plan Assessment/Plan Anxiety d/o -Ativan 1mg q6hr prn Subjective Date patient seen: Sep 10, 2017 Neurologic/Psychiatric: Reports: anxiety, emotional problems Allergies: Coded Allergies: PENICILLINS (Unverified Allergy, Unknown, 04/03/14) Objective Last 24 Hour Vital Signs Date Time Temp Pulse Resp B/P (MAP) Pulse Ox O2 Delivery O2 Flow Rate FiO2 09/10/17 12:10 98.5 66 19 121/70 100 Room Air 98.5 09/10/17 12:04 75 15 122/69 100 Room Air 09/10/17 11:59 64 13 123/74 100 Nasal Cannula 3 09/10/17 11:54 98.2 86 18 134/71 100 Nasal Cannula 3 98.2 09/10/17 09:00 70 123/73 09/10/17 04:00 97.4 79 18 108/61 98 97.4 09/10/17 00:00 97.3 79 18 132/72 95 97.3 09/09/17 20:00 97.2 73 18 130/75 98 97.2 09/09/17 15:50 96.4 71 18 125/70 100 96.4 Intake and Output 09/09/17 09/10/17 19:00 07:00 Intake Total 1100 ml 1100 ml Output Total 300 ml 650 ml Balance 800 ml 450 ml Intake Oral 1000 ml IV Total 100 ml 1100 ml Output Urine Total 300 ml 650 ml # Bowel Movements 1 8 Laboratory Tests 09/10/17 10:35: White Blood Count 5.2, Red Blood Count 3.25L, Hemoglobin 10.5L, Hematocrit 33.2L , Mean Corpuscular Volume 102H, Mean Corpuscular Hemoglobin 32.2H, Mean Corpuscular Hemoglobin Concent 31.5L, Red Cell Distribution Width 18.8H, Platelet Count 179, Mean Platelet Volume 6.6, Neutrophils (%) (Auto) 54.2, Lymphocytes (%) (Auto) 29.8, Monocytes (%) (Auto) 11.1H, Eosinophils (%) (Auto) 3.9H, Basophils (%) (Auto) 1.0, Prothrombin Time 10.5, Prothromb Time International Ratio 1.0, Activated Partial Thromboplast Time 27, Sodium Level 137, Potassium Level 4.6, Chloride Level 101, Carbon Dioxide Level 28, Anion Gap 8, Blood Urea Nitrogen 6L, Creatinine 1.1, Estimat Glomerular Filtration Rate > 60, Glucose Level 147#H, Calcium Level 9.2 Height (Feet): 5 Height (Inches): 5.00 Weight (Pounds): 144 General Appearance: no apparent distress, alert Neurologic: oriented x 3, responsive, depressed affect Sudhakar Chao M.D. Sep 10, 2017 12:28
--- NOTE | 2017-09-10 12:32 | Pulmonology Progress Note ---
Assessment/Plan Problems: (1) Elevated CEA (2) Pancreatitis (3) Intractable diarrhea (4) Hypotension (5) ATN (acute tubular necrosis) (6) HIV disease (7) HIV-associated nephropathy (8) Anemia Assessment/Plan Improving Lipase still high advance diet f/u renal function check electrolytes CT reviewed, Pt has aortic aneurysm, and partially occluded femoral bypass graft. Vascular surgeon contacted. Subjective Interval Events: having EGD toay Allergies: Coded Allergies: PENICILLINS (Unverified Allergy, Unknown, 04/03/14) Objective Last 24 Hour Vital Signs Date Time Temp Pulse Resp B/P (MAP) Pulse Ox O2 Delivery O2 Flow Rate FiO2 09/10/17 12:04 75 15 122/69 100 Room Air 09/10/17 11:59 64 13 123/74 100 Nasal Cannula 3 09/10/17 11:54 98.2 86 18 134/71 100 Nasal Cannula 3 98.2 09/10/17 09:00 70 123/73 09/10/17 04:00 97.4 79 18 108/61 98 97.4 09/10/17 00:00 97.3 79 18 132/72 95 97.3 09/09/17 20:00 97.2 73 18 130/75 98 97.2 09/09/17 15:50 96.4 71 18 125/70 100 96.4 Intake and Output 09/09/17 09/10/17 19:00 07:00 Intake Total 1100 ml 1100 ml Output Total 300 ml 650 ml Balance 800 ml 450 ml Intake Oral 1000 ml IV Total 100 ml 1100 ml Output Urine Total 300 ml 650 ml # Bowel Movements 1 8 Objective No change Microbiology Date/Time Source Procedure Growth Status 09/09/17 09:41 Stool Stool Culture - Preliminary NORMAL FECAL VALENTE. Resulted 09/09/17 09:41 Stool Clostridium difficile Toxin Assay - Final Resulted Laboratory Tests 09/10/17 10:35: White Blood Count 5.2, Red Blood Count 3.25L, Hemoglobin 10.5L, Hematocrit 33.2L , Mean Corpuscular Volume 102H, Mean Corpuscular Hemoglobin 32.2H, Mean Corpuscular Hemoglobin Concent 31.5L, Red Cell Distribution Width 18.8H, Platelet Count 179, Mean Platelet Volume 6.6, Neutrophils (%) (Auto) 54.2, Lymphocytes (%) (Auto) 29.8, Monocytes (%) (Auto) 11.1H, Eosinophils (%) (Auto) 3.9H, Basophils (%) (Auto) 1.0, Prothrombin Time 10.5, Prothromb Time International Ratio 1.0, Activated Partial Thromboplast Time 27, Sodium Level 137, Potassium Level 4.6, Chloride Level 101, Carbon Dioxide Level 28, Anion Gap 8, Blood Urea Nitrogen 6L, Creatinine 1.1, Estimat Glomerular Filtration Rate > 60, Glucose Level 147#H, Calcium Level 9.2 Current Medications Medications (Trade) Dose Ordered Sig/Robert Route PRN Reason Start Time Stop Time Status Last Admin Dose Admin Acetaminophen (Tylenol) 650 mg Q4H PRN ORAL fever 09/07/17 22:15 10/07/17 22:14 Atropine Sulfate (Atropine) 0.5 mg Q5M PRN IV bpm less than 45 09/10/17 06:45 09/10/17 15:00 Dextrose (Dextrose 50%) 25 ml STAT PRN IV Hypoglycemia 09/08/17 09:15 10/07/17 22:14 Dextrose (Dextrose 50%) 50 ml STAT PRN IV Hypoglycemia 09/08/17 09:15 10/08/17 09:14 Diphenhydramine HCl (Benadryl) 25 mg Q15M PRN IVP Itching 09/10/17 06:45 09/10/17 15:00 Diphenhydramine HCl (Benadryl) 25 mg Q6H PRN IVP Itching 09/08/17 09:00 10/08/17 08:59 Diphenhydramine HCl (Benadryl) 25 mg Q6H PRN ORAL Itching/Pruritis 09/07/17 22:15 10/07/17 22:14 Fentanyl Citrate (Sublimaze 100 mcg/2 mL) 25 mcg Q10M PRN IV Moderate Pain (Pain Scale 4-6) 09/10/17 06:45 09/10/17 15:00 Heparin Sodium (Porcine) (Heparin 5000 units/ml) 5,000 units EVERY 12 HOURS SUBQ 09/07/17 22:36 10/07/17 22:35 09/08/17 09:19 Hydralazine HCl (Apresoline) 5 mg Q30M PRN IV SBP>160 OR___/DBP>90 OR___ 09/10/17 06:45 09/10/17 15:00 Iopamidol (Isovue-300 100ml) 100 ml NOW PRN INJ Radiology Procedure 09/09/17 10:00 09/11/17 09:59 Lorazepam (Ativan 2mg/ml 1ml) 1 mg EVERY 4 HOURS PRN IV agitation 09/07/17 22:15 09/14/17 22:14 Metoclopramide HCl (Reglan) 10 mg EVERY 6 HOURS PRN IVP servere nauasea 09/07/17 22:15 10/07/17 22:14 Metoprolol Succinate (Toprol XL) 25 mg DAILY ORAL 09/08/17 09:00 10/08/17 08:59 09/08/17 09:18 Midazolam HCl (Versed 2mg/2ml vial) 1 mg Q15M PRN IVP For Anxiety 09/10/17 06:45 09/10/17 15:00 Morphine Sulfate (Morphine Sulfate) 2 mg Q4H PRN IVP severe pain (7-10) 09/07/17 22:45 09/14/17 22:44 Nitroglycerin (Ntg) 0.4 mg Q5M X 3 DOSES PRN SL Prn Chest Pain 09/07/17 22:15 10/07/17 22:14 Non-Formulary Medication (Non-Formulary Med) 1 ea DAILY ORAL 09/09/17 11:00 10/09/17 10:59 09/10/17 09:16 Ondansetron HCl (Zofran) 4 mg Q1H PRN IVP Nausea & Vomiting 09/10/17 06:45 09/10/17 15:00 Ondansetron HCl (Zofran) 4 mg Q6H PRN IVP Nausea & Vomiting 09/07/17 22:15 10/07/17 22:14 Pantoprazole (Protonix) 40 mg DAILY IV 09/08/17 09:00 10/08/17 08:59 09/09/17 08:44 Polyethylene Glycol (Miralax) 17 gm HSPRN PRN ORAL Constipation 09/07/17 22:15 10/07/17 22:14 Promethazine HCl 12.5 mg/Sodium Chloride 55.5 ml @ 110 mls/hr Q6H PRN IV Refractory N/V 09/07/17 22:15 10/07/17 22:14 Raltegravir (Isentress) 400 mg EVERY 12 HOURS ORAL 09/08/17 21:00 10/08/17 20:59 09/10/17 09:16 Sodium Chloride 1,000 ml @ 10 mls/hr Q24H IVLG 09/10/17 06:38 09/10/17 15:00 Sodium Chloride 1,000 ml @ 100 mls/hr Q10H IV 09/08/17 09:30 10/07/17 09:29 09/10/17 02:27 Temazepam (Restoril) 15 mg HSPRN PRN ORAL Insomnia 09/07/17 22:15 09/14/17 22:14 09/10/17 02:24 Deborah Shelby MD Sep 10, 2017 12:32
--- NOTE | 2017-09-10 14:33 | General Progress Note ---
Assessment/Plan Problem List: (1) Weak ICD Codes: R53.1 - Weakness SNOMED: 47853835 (2) Diarrhea ICD Codes: R19.7 - Diarrhea, unspecified SNOMED: 35210085 (3) Dehydration ICD Codes: E86.0 - Dehydration SNOMED: 52994443 (4) Dizziness ICD Codes: R42 - Dizziness and giddiness SNOMED: 689461648, 434639754 (5) Thrombosis ICD Codes: I82.90 - Acute embolism and thrombosis of unspecified vein SNOMED: 575278078 Status: stable, progressing Assessment/Plan ot pt diet abx ivf cbc bmp am dc plan w ww Subjective Constitutional: Reports: weakness Allergies: Coded Allergies: PENICILLINS (Unverified Allergy, Unknown, 04/03/14) All Systems: reviewed and negative except above Subjective calm in room Objective Last 24 Hour Vital Signs Date Time Temp Pulse Resp B/P (MAP) Pulse Ox O2 Delivery O2 Flow Rate FiO2 09/10/17 12:10 98.5 66 19 121/70 100 Room Air 98.5 09/10/17 12:04 75 15 122/69 100 Room Air 09/10/17 11:59 64 13 123/74 100 Nasal Cannula 3 09/10/17 11:54 98.2 86 18 134/71 100 Nasal Cannula 3 98.2 09/10/17 09:00 70 123/73 09/10/17 04:00 97.4 79 18 108/61 98 97.4 09/10/17 00:00 97.3 79 18 132/72 95 97.3 09/09/17 20:00 97.2 73 18 130/75 98 97.2 09/09/17 15:50 96.4 71 18 125/70 100 96.4 Intake and Output 09/09/17 09/10/17 19:00 07:00 Intake Total 1100 ml 1100 ml Output Total 300 ml 650 ml Balance 800 ml 450 ml Intake Oral 1000 ml IV Total 100 ml 1100 ml Output Urine Total 300 ml 650 ml # Bowel Movements 1 8 Laboratory Tests 09/10/17 10:35: White Blood Count 5.2, Red Blood Count 3.25L, Hemoglobin 10.5L, Hematocrit 33.2L , Mean Corpuscular Volume 102H, Mean Corpuscular Hemoglobin 32.2H, Mean Corpuscular Hemoglobin Concent 31.5L, Red Cell Distribution Width 18.8H, Platelet Count 179, Mean Platelet Volume 6.6, Neutrophils (%) (Auto) 54.2, Lymphocytes (%) (Auto) 29.8, Monocytes (%) (Auto) 11.1H, Eosinophils (%) (Auto) 3.9H, Basophils (%) (Auto) 1.0, Prothrombin Time 10.5, Prothromb Time International Ratio 1.0, Activated Partial Thromboplast Time 27, Sodium Level 137, Potassium Level 4.6, Chloride Level 101, Carbon Dioxide Level 28, Anion Gap 8, Blood Urea Nitrogen 6L, Creatinine 1.1, Estimat Glomerular Filtration Rate > 60, Glucose Level 147#H, Calcium Level 9.2 Height (Feet): 5 Height (Inches): 5.00 Weight (Pounds): 144 General Appearance: lethargic EENT: normal ENT inspection Neck: normal alignment Cardiovascular: normal peripheral pulses, normal rate, regular rhythm Respiratory/Chest: chest wall non-tender, lungs clear, normal breath sounds Abdomen: normal bowel sounds, non tender, soft Extremities: normal inspection Edema: no edema noted Arm (L), no edema noted Arm (R), no edema noted Leg (L), no edema noted Leg (R), no edema noted Pedal (L), no edema noted Pedal (R), no edema noted Generalized Neurologic: responsive, motor weakness Skin: normal pigmentation, warm/dry Romel Marshall DO Sep 10, 2017 14:33
--- NOTE | 2017-09-10 16:16 | Procedure Note ---
DATE OF PROCEDURE: 09/10/2017 SURGEON: Haider Bermeo M.D. ANESTHESIOLOGIST: Dr. Espino. PROCEDURE: Colonoscopy and endoscopy with biopsy. ANESTHESIA: Per Dr. Espino. INSTRUMENT: Olympus adult flexible upper endoscope and colonoscope. INDICATION: Anemia, elevated CEA. The procedure, risks, benefits, and possible consequences, including hemorrhage, aspiration, perforation and infection, and alternative treatments, were explained to the patient/legal guardian by Dr. Haider Bermeo and the patient/legal guardian understood and accepted these risks. DESCRIPTION OF PROCEDURE: After informed consent was obtained and the patient was adequately sedated, Olympus upper endoscope was advanced from the mouth into the second portion of duodenum and retroflexion was performed in the stomach. The patient had evidence of a small hiatal hernia. Diffuse gastritis. Random biopsy from antrum was obtained to rule out H. pylori infection. Then at this time, the upper endoscope was retrieved. The patient was turned over for colonoscopy. First, rectal exam was performed which was normal. Then, the scope was advanced from rectum into the cecum documented by the appendiceal orifice, ileocecal valve, and right upper quadrant palpation. Quality of prep was good. The patient had normal colonoscopy examination. No obvious mass, polyp, or any other pathology was seen. Retroflexion of rectum showed evidence of internal hemorrhoids. The patient tolerated procedure very well without any complication. SUMMARY OF FINDINGS: 1. Gastritis. 2. Small hiatal hernia. 3. Internal hemorrhoids. RECOMMENDATIONS: Follow up biopsy results and treat accordingly. Resume diet. Follow up laboratories. Haider Bermeo M.D. DR: Juan JOB#: [id number] CC:
[2017-09-10] MEDS ORDERED: Tubing IV Secondary IV ONE (16:21)
--- NOTE | 2017-09-10 16:47 | Cardiac Electrophysiology PN ---
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 Femoral artery to femoral artery bypass graft. Patency status unknown. Graft is probably thrombosed, at least partially. Assessment/Plan 1. Dizziness likely due to hypotension, blood pressure was in the 90 and the patient has abdominal pain and vomiting. Echocardiogram showed EF 65%. EKG showed sinus tachycardia at rate of 104, otherwise normal electrocardiogram. 2. History of hypertension, on Toprol-XL 25 mg daily 3. Hyperlipidemia, the patient was on Crestor that will be held in view of the patient's lipase more than 2000. 4. Human immunodeficiency virus.ON HAART 5. Pancreatitis. The patient was evaluated by Dr. Bermeo. Lipase more than 2000 range.Still more than 2000 today 6. 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 Femoral artery to femoral artery bypass graft. Patency status unknown. Graft is probably thrombosed, at least partially. Evaluation by Dr Vicente is pending LEXI RN Subjective Subjective Comfortable sitting in the chair. No CP or SOB. 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 Femoral artery to femoral artery bypass graft. Patency status unknown. Graft is probably thrombosed, at least partially. Objective Last 24 Hour Vital Signs Date Time Temp Pulse Resp B/P (MAP) Pulse Ox O2 Delivery O2 Flow Rate FiO2 09/10/17 16:00 97.7 72 18 118/72 99 Room Air 97.7 09/10/17 12:10 98.5 66 19 121/70 100 Room Air 98.5 09/10/17 12:04 75 15 122/69 100 Room Air 09/10/17 11:59 64 13 123/74 100 Nasal Cannula 3 09/10/17 11:54 98.2 86 18 134/71 100 Nasal Cannula 3 98.2 09/10/17 09:00 70 123/73 09/10/17 04:00 97.4 79 18 108/61 98 97.4 09/10/17 00:00 97.3 79 18 132/72 95 97.3 09/09/17 20:00 97.2 73 18 130/75 98 97.2 Intake and Output 09/09/17 09/10/17 19:00 07:00 Intake Total 1100 ml 1100 ml Output Total 300 ml 650 ml Balance 800 ml 450 ml Intake Oral 1000 ml IV Total 100 ml 1100 ml Output Urine Total 300 ml 650 ml # Bowel Movements 1 8 Laboratory Tests Test 09/10/17 10:35 White Blood Count 5.2 K/UL (4.8-10.8) Red Blood Count 3.25 M/UL (4.70-6.10) L Hemoglobin 10.5 G/DL (14.2-18.0) L Hematocrit 33.2 % (42.0-52.0) L Mean Corpuscular Volume 102 FL (80-99) H Mean Corpuscular Hemoglobin 32.2 PG (27.0-31.0) H Mean Corpuscular Hemoglobin Concent 31.5 G/DL (32.0-36.0) L Red Cell Distribution Width 18.8 % (11.6-14.8) H Platelet Count 179 K/UL (150-450) Mean Platelet Volume 6.6 FL (6.5-10.1) Neutrophils (%) (Auto) 54.2 % (45.0-75.0) Lymphocytes (%) (Auto) 29.8 % (20.0-45.0) Monocytes (%) (Auto) 11.1 % (1.0-10.0) H Eosinophils (%) (Auto) 3.9 % (0.0-3.0) H Basophils (%) (Auto) 1.0 % (0.0-2.0) Prothrombin Time 10.5 SEC (9.30-11.50) Prothromb Time International Ratio 1.0 (0.9-1.1) Activated Partial Thromboplast Time 27 SEC (23-33) Sodium Level 137 MMOL/L (136-145) Potassium Level 4.6 MMOL/L (3.5-5.1) Chloride Level 101 MMOL/L (98-107) Carbon Dioxide Level 28 MMOL/L (21-32) Anion Gap 8 mmol/L (5-15) Blood Urea Nitrogen 6 mg/dL (7-18) L Creatinine 1.1 MG/DL (0.55-1.30) Estimat Glomerular Filtration Rate > 60 mL/min (>60) Glucose Level 147 MG/DL (74-106) #H Calcium Level 9.2 MG/DL (8.5-10.1) Microbiology Date/Time Source Procedure Growth Status 09/09/17 09:41 Stool Stool Culture - Preliminary NORMAL FECAL VALENTE. Resulted 09/09/17 09:41 Stool Clostridium difficile Toxin Assay - Final Resulted Objective HEAD AND NECK: No JVD or carotid bruits. LUNGS: Clear. CARDIOVASCULAR: Regular S1 and S2 with no gallop or murmur. ABDOMEN: Soft. EXTREMITIES: No pitting edema. David Moyer MD Sep 10, 2017 16:47
--- NOTE | 2017-09-10 20:39 | Immediate Post-Op Evaluation ---
Immediate Post-Op Evalulation Immediate Post-Op Evalulation Procedure: egd/colonoscopy Date of Evaluation: Sep 10, 2017 Time of Evaluation: 12:06 IV Fluids: 200ml 0.9ns Blood Products: none Estimated Blood Loss: negligible Blood Pressure Systolic: 134 Blood Pressure Diastolic: 71 Pulse Rate: 86 Respiratory Rate: 18 O2 Sat by Pulse Oximetry: 100 Temperature (Fahrenheit): 98.2 Pain Score (1-10): 0 Nausea: No Vomiting: No Complications none Patient Status: awake, reacts, patent Hydration Status: adequate Drug: Renae Vera MD Sep 10, 2017 20:39
--- NOTE | 2017-09-10 20:41 | 48 Hour Post Anesthesia Eval ---
Post Anesthesia Evaluation Procedure: egd/colonoscopy Date of Evaluation: Sep 10, 2017 Time of Evaluation: 12:08 Blood Pressure Systolic: 133 0: 77 Pulse Rate: 85 Respiratory Rate: 18 Temperature (Fahrenheit): 98.2 O2 Sat by Pulse Oximetry: 99 Airway: patent Nausea: No Vomiting: No Pain Intensity: 0 Hydration Status: adequate Cardiopulmonary Status: stable Mental Status/LOC: patient returned to baseline Post-Anesthesia Complications: none Follow-up care needed: N/A Renae Guallpa MD Sep 10, 2017 20:41
[2017-09-11 00:34] VITALS: BP 104/85
[2017-09-11 04:17] VITALS: BP 115/76
[2017-09-11 07:43] LABS: BASOPHILS % (AUTO) 1.4 % (0.0-2.0); EOSINOPHILS % (AUTO) 4.3 % (0.0-3.0); HEMATOCRIT 29.3 % (42.0-52.0); HEMOGLOBIN 9.1 G/DL (14.2-18.0); LYMPHOCYTES % (AUTO) 33.2 % (20.0-45.0); MEAN CORPUSCULAR VOLUME 104 FL (80-99); NEUTROPHILS % (AUTO) 49.2 % (45.0-75.0); PLATELET COUNT 169 K/UL (150-450); RED BLOOD COUNT 2.83 M/UL (4.70-6.10); RED CELL DISTRIBUTION WIDTH 18.1 % (11.6-14.8); WHITE BLOOD COUNT 4.3 K/UL (4.8-10.8)
[2017-09-11 07:57] LABS: AMYLASE 163 U/L (25-115)
[2017-09-11 08:00] VITALS: BP 119/79
[2017-09-11 08:20] LABS: ALANINE AMINOTRANSFERASE 21 U/L (12-78); ALBUMIN/GLOBULIN RATIO 1.2 (1.0-2.7); ALKALINE PHOSPHATASE 73 U/L (46-116); ANION GAP 10 mmol/L (5-15); ASPARTATE AMINO TRANSFERASE 19 U/L (15-37); BILIRUBIN,TOTAL 0.2 MG/DL (0.2-1.0); BLOOD UREA NITROGEN 7 mg/dL (7-18); CALCIUM 9.1 MG/DL (8.5-10.1); CARBON DIOXIDE 23 MMOL/L (21-32); CHLORIDE 108 MMOL/L (98-107); CHOLESTEROL 171 MG/DL (< 200); CREATININE 1.1 MG/DL (0.55-1.30); HDL CHOLESTEROL 89 MG/DL (40-60); SODIUM 141 MMOL/L (136-145); TRIGLYCERIDES 87 MG/DL (30-150)
[2017-09-11] MEDS: Isentress 400mg tab ORAL SCH (08:26)
[2017-09-11] MEDS: Heparin 5000 units/ml inj SUBQ SCH (08:27)
[2017-09-11] MEDS: Metoprolol Succinate XL 25mg tab ORAL SCH (08:27)
[2017-09-11] MEDS: Pantoprazole Inj IV SCH (08:37)
[2017-09-11] MEDS: NEVIRAPINE 400 MG ORAL SCH (08:38)
--- NOTE | 2017-09-11 09:44 | Nephrology Progress Note ---
Assessment/Plan Assessment/Plan 1. Hyponatremia-resolved 2. DAJA- due to volume depletion and hypotension - renal US negative (benign renal cyst) - resolved, Cr 1.1. Will sign off today. Plz call back if needed - OK for DC from renal point 3. N/V- resolved 4. HIV- HAART 5. 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 Femoral artery to femoral artery bypass graft. Patency status unknown. Graft is probably thrombosed, at least partially. Evaluation per Dr Vicente Subjective Date patient seen: Sep 11, 2017 Time patient seen: 09:42 ROS Limited/Unobtainable: No Allergies: Coded Allergies: PENICILLINS (Unverified Allergy, Unknown, 04/03/14) Subjective Patient feels much better. No complaints Objective Last 24 Hour Vital Signs Date Time Temp Pulse Resp B/P (MAP) Pulse Ox O2 Delivery O2 Flow Rate FiO2 09/11/17 08:27 81 119/74 09/11/17 04:17 97.7 73 19 115/76 97 Room Air 97.7 09/11/17 00:34 97.0 69 20 104/85 96 Room Air 97.0 09/10/17 20:41 208.8 85 18 99 09/10/17 20:39 208.8 86 18 100 09/10/17 20:06 96.8 79 19 120/80 96 Room Air 96.8 09/10/17 16:00 97.7 72 18 118/72 99 Room Air 97.7 09/10/17 12:10 98.5 66 19 121/70 100 Room Air 98.5 09/10/17 12:04 75 15 122/69 100 Room Air 09/10/17 11:59 64 13 123/74 100 Nasal Cannula 3 09/10/17 11:54 98.2 86 18 134/71 100 Nasal Cannula 3 98.2 Intake and Output 09/10/17 09/11/17 19:00 07:00 Intake Total 300 ml 900 ml Balance 300 ml 900 ml IV Total 300 ml 900 ml # Voids 2 1 # Bowel Movements 1 Laboratory Tests 09/10/17 10:35: White Blood Count 5.2, Red Blood Count 3.25L, Hemoglobin 10.5L, Hematocrit 33.2L , Mean Corpuscular Volume 102H, Mean Corpuscular Hemoglobin 32.2H, Mean Corpuscular Hemoglobin Concent 31.5L, Red Cell Distribution Width 18.8H, Platelet Count 179, Mean Platelet Volume 6.6, Neutrophils (%) (Auto) 54.2, Lymphocytes (%) (Auto) 29.8, Monocytes (%) (Auto) 11.1H, Eosinophils (%) (Auto) 3.9H, Basophils (%) (Auto) 1.0, Prothrombin Time 10.5, Prothromb Time International Ratio 1.0, Activated Partial Thromboplast Time 27, Sodium Level 137, Potassium Level 4.6, Chloride Level 101, Carbon Dioxide Level 28, Anion Gap 8, Blood Urea Nitrogen 6L, Creatinine 1.1, Estimat Glomerular Filtration Rate > 60, Glucose Level 147#H, Calcium Level 9.2 09/11/17 06:40: White Blood Count 4.3L, Red Blood Count 2.83L, Hemoglobin 9.1L, Hematocrit 29.3L , Mean Corpuscular Volume 104H, Mean Corpuscular Hemoglobin 32.1H, Mean Corpuscular Hemoglobin Concent 31.0L, Red Cell Distribution Width 18.1H, Platelet Count 169, Mean Platelet Volume 7.0, Neutrophils (%) (Auto) 49.2, Lymphocytes (%) (Auto) 33.2, Monocytes (%) (Auto) 12.0H, Eosinophils (%) (Auto) 4.3H, Basophils (%) (Auto) 1.4, Sodium Level 141, Potassium Level 4.0, Chloride Level 108H, Carbon Dioxide Level 23, Anion Gap 10, Blood Urea Nitrogen 7, Creatinine 1.1, Estimat Glomerular Filtration Rate > 60, Glucose Level 112H, Calcium Level 9.1, Total Bilirubin 0.2, Aspartate Amino Transf (AST/SGOT) 19, Alanine Aminotransferase (ALT/SGPT) 21, Alkaline Phosphatase 73, Total Protein 5.6L, Albumin 3.0L, Globulin 2.6, Albumin/Globulin Ratio 1.2, Triglycerides Level 87, Cholesterol Level 171, LDL Cholesterol 59, HDL Cholesterol 89H, Cholesterol/HDL Ratio 1.9L, Amylase Level 163H, Lipase 1779H, CA 19-9 Antigen [ Pending], Anti-Nuclear Antibody Screen [Pending], SmRNP Antibodies [Pending] Height (Feet): 5 Height (Inches): 5.00 Weight (Pounds): 144 General Appearance: no apparent distress, alert EENT: normal ENT inspection Neck: normal alignment, supple Cardiovascular: normal rate, regular rhythm Respiratory/Chest: lungs clear, normal breath sounds Abdomen: non tender, soft Edema: no edema noted Arm (L), no edema noted Arm (R), no edema noted Leg (L), no edema noted Leg (R), no edema noted Pedal (L), no edema noted Pedal (R), no edema noted Generalized Gurmeet Drake M.D. Sep 11, 2017 09:44
[2017-09-11 12:00] VITALS: BP 110/68
--- NOTE | 2017-09-11 12:35 | Infectious Diseases Prog Note ---
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 Femoral artery to femoral artery bypass graft. Patency status unknown. Graft is probably thrombosed, at least partially. Reticular infiltrate in the left upper lobe. This may be chronic. Pulmonary emphysema. Focal chronic calcific pancreatitis involving the pancreatic head. Small left inguinal hernia containing fat. -Abd US: Nonmobile nonshadowing echogenic gallbladder intraluminal foci, probably small polyps, less likely wall adherent stones. Negative for dilated ducts. -Cdiff neg -stool cx normal fecal tolu Afebrile, no leukocytosis -u/a neg -CXR: no acute disease Type B aortic dissection (thoracic, abdominal aorta)- found incidentally Pancreatitis, likely chronic per CT Dehydration DAJA, improving Dizziness -MRI brain: Chronic and age-related changes. Negative for acute intracranial bleed, mass effect, or infarct Orthostatic hypotension HIV- well controlled on dual ARV (confirmed with [facility] pharmacy; per them patient previously on Atripla and VL UD and CD4>1000 on 03/2017) -CD4 462 (42%) HTN HLD Plan: -Continue to monitor off abx -Monitor CBC/BMP, temperatures -aspiration precautions -Continue ARV as above -Cards, GI f/u -management of Type B aortic dissection per primary and cardiology. -vasc sx eval -Needs repeat CD4 with PCP. Thank you for this consultation. Will continue to follow along with you. Discussed with RN. Subjective Allergies: Coded Allergies: PENICILLINS (Unverified Allergy, Unknown, 04/03/14) Subjective afebrile no leukocytosis stool cx neg Objective Vital Signs Last 24 Hour Vital Signs Date Time Temp Pulse Resp B/P (MAP) Pulse Ox O2 Delivery O2 Flow Rate FiO2 09/11/17 12:00 98.4 77 18 110/68 95 Room Air 98.4 09/11/17 08:27 81 119/74 09/11/17 08:00 98.1 81 17 119/79 99 Room Air 98.1 09/11/17 04:17 97.7 73 19 115/76 97 Room Air 97.7 09/11/17 00:34 97.0 69 20 104/85 96 Room Air 97.0 09/10/17 20:41 208.8 85 18 99 09/10/17 20:39 208.8 86 18 100 09/10/17 20:06 96.8 79 19 120/80 96 Room Air 96.8 09/10/17 16:00 97.7 72 18 118/72 99 Room Air 97.7 Height (Feet): 5 Height (Inches): 5.00 Weight (Pounds): 144 Objective General Appearance: WD/WN Lines, tubes and drains: peripheral HEENT: normocephalic, atraumatic Neck: non-tender, normal alignment Respiratory/Chest: chest wall non-tender, lungs clear Breasts: no masses Cardiovascular/Chest: normal peripheral pulses, normal rate Abdomen: normal bowel sounds Genitourinary/Rectal: normal genital exam Extremities: normal range of motion Microbiology Date/Time Source Procedure Growth Status 09/09/17 09:41 Stool Stool Culture - Final NO SALMONELLA,SHIGELLA,CAMPYLOBACTER,... Complete 09/09/17 09:41 Stool Clostridium difficile Toxin Assay - Final Complete Laboratory Tests Test 09/11/17 06:40 White Blood Count 4.3 K/UL (4.8-10.8) L Red Blood Count 2.83 M/UL (4.70-6.10) L Hemoglobin 9.1 G/DL (14.2-18.0) L Hematocrit 29.3 % (42.0-52.0) L Mean Corpuscular Volume 104 FL (80-99) H Mean Corpuscular Hemoglobin 32.1 PG (27.0-31.0) H Mean Corpuscular Hemoglobin Concent 31.0 G/DL (32.0-36.0) L Red Cell Distribution Width 18.1 % (11.6-14.8) H Platelet Count 169 K/UL (150-450) Mean Platelet Volume 7.0 FL (6.5-10.1) Neutrophils (%) (Auto) 49.2 % (45.0-75.0) Lymphocytes (%) (Auto) 33.2 % (20.0-45.0) Monocytes (%) (Auto) 12.0 % (1.0-10.0) H Eosinophils (%) (Auto) 4.3 % (0.0-3.0) H Basophils (%) (Auto) 1.4 % (0.0-2.0) Sodium Level 141 MMOL/L (136-145) Potassium Level 4.0 MMOL/L (3.5-5.1) Chloride Level 108 MMOL/L (98-107) H Carbon Dioxide Level 23 MMOL/L (21-32) Anion Gap 10 mmol/L (5-15) Blood Urea Nitrogen 7 mg/dL (7-18) Creatinine 1.1 MG/DL (0.55-1.30) Estimat Glomerular Filtration Rate > 60 mL/min (>60) Glucose Level 112 MG/DL (74-106) H Calcium Level 9.1 MG/DL (8.5-10.1) Total Bilirubin 0.2 MG/DL (0.2-1.0) Aspartate Amino Transf (AST/SGOT) 19 U/L (15-37) Alanine Aminotransferase (ALT/SGPT) 21 U/L (12-78) Alkaline Phosphatase 73 U/L (46-116) Total Protein 5.6 G/DL (6.4-8.2) L Albumin 3.0 G/DL (3.4-5.0) L Globulin 2.6 g/dL Albumin/Globulin Ratio 1.2 (1.0-2.7) Triglycerides Level 87 MG/DL (30-150) Cholesterol Level 171 MG/DL (< 200) LDL Cholesterol 59 mg/dL (<100) HDL Cholesterol 89 MG/DL (40-60) H Cholesterol/HDL Ratio 1.9 (3.3-4.4) L Amylase Level 163 U/L (25-115) H Lipase 1779 U/L (73-393) H CA 19-9 Antigen Pending Anti-Nuclear Antibody Screen Pending SmRNP Antibodies Pending Current Medications Medications (Trade) Dose Ordered Sig/Robert Route PRN Reason Start Time Stop Time Status Last Admin Dose Admin Acetaminophen (Tylenol) 650 mg Q4H PRN ORAL fever 09/07/17 22:15 10/07/17 22:14 Dextrose (Dextrose 50%) 25 ml STAT PRN IV Hypoglycemia 09/08/17 09:15 10/07/17 22:14 Dextrose (Dextrose 50%) 50 ml STAT PRN IV Hypoglycemia 09/08/17 09:15 10/08/17 09:14 Diphenhydramine HCl (Benadryl) 25 mg Q6H PRN IVP Itching 09/08/17 09:00 10/08/17 08:59 Diphenhydramine HCl (Benadryl) 25 mg Q6H PRN ORAL Itching/Pruritis 09/07/17 22:15 10/07/17 22:14 Heparin Sodium (Porcine) (Heparin 5000 units/ml) 5,000 units EVERY 12 HOURS SUBQ 09/07/17 22:36 10/07/17 22:35 09/11/17 08:27 Lorazepam (Ativan 2mg/ml 1ml) 1 mg EVERY 4 HOURS PRN IV agitation 09/07/17 22:15 09/14/17 22:14 Metoclopramide HCl (Reglan) 10 mg EVERY 6 HOURS PRN IVP servere n[place]asea 09/07/17 22:15 10/07/17 22:14 Metoprolol Succinate (Toprol XL) 25 mg DAILY ORAL 09/08/17 09:00 10/08/17 08:59 09/11/17 08:27 Morphine Sulfate (Morphine Sulfate) 2 mg Q4H PRN IVP severe pain (7-10) 09/07/17 22:45 09/14/17 22:44 Nitroglycerin (Ntg) 0.4 mg Q5M X 3 DOSES PRN SL Prn Chest Pain 09/07/17 22:15 10/07/17 22:14 Non-Formulary Medication (Non-Formulary Med) 1 ea DAILY ORAL 09/09/17 11:00 10/09/17 10:59 09/11/17 08:38 Ondansetron HCl (Zofran) 4 mg Q6H PRN IVP Nausea & Vomiting 09/07/17 22:15 10/07/17 22:14 Pantoprazole (Protonix) 40 mg DAILY IV 09/08/17 09:00 10/08/17 08:59 09/11/17 08:37 Polyethylene Glycol (Miralax) 17 gm HSPRN PRN ORAL Constipation 09/07/17 22:15 10/07/17 22:14 Promethazine HCl 12.5 mg/Sodium Chloride 55.5 ml @ 110 mls/hr Q6H PRN IV Refractory N/V 09/07/17 22:15 10/07/17 22:14 Raltegravir (Isentress) 400 mg EVERY 12 HOURS ORAL 09/08/17 21:00 10/08/17 20:59 09/11/17 08:26 Sodium Chloride 1,000 ml @ 100 mls/hr Q10H IV 09/08/17 09:30 10/07/17 09:29 09/11/17 08:38 Temazepam (Restoril) 15 mg HSPRN PRN ORAL Insomnia 09/07/17 22:15 09/14/17 22:14 09/10/17 20:57 Laura Lorenzana M.D. Sep 11, 2017 12:35
--- NOTE | 2017-09-11 13:38 | GI Progress Note ---
Assessment/Plan Problems: (1) Pancreatitis ICD Codes: K85.90 - Acute pancreatitis without necrosis or infection, unspecified SNOMED: 07632401 (2) Anemia ICD Codes: D64.9 - Anemia, unspecified SNOMED: 078737397 (3) Intractable diarrhea ICD Codes: R19.7 - Diarrhea, unspecified SNOMED: 135725588 Status: stable Status Narrative Discussed with Dr. Bermeo. Assessment/Plan lipase 1999+ >> CT reviewed shows calcification on pancreatic head, no intervention at this time >> trend lipase electrolyte imbalance macrocytic hyperchromic anemia OB stool negative elevated CEA 9.3 SUMMARY OF FINDINGS: 1. Gastritis. 2. Small hiatal hernia. 3. Internal hemorrhoids. RECOMMENDATIONS: okay for DC per GI standpoint Follow up biopsy results and treat accordingly. outpatient follow up vascular surgery recs Subjective Gastrointestinal/Abdominal: Reports: no symptoms Objective Last 24 Hour Vital Signs Date Time Temp Pulse Resp B/P (MAP) Pulse Ox O2 Delivery O2 Flow Rate FiO2 09/11/17 12:00 98.4 77 18 110/68 95 Room Air 98.4 09/11/17 08:27 81 119/74 09/11/17 08:00 98.1 81 17 119/79 99 Room Air 98.1 09/11/17 04:17 97.7 73 19 115/76 97 Room Air 97.7 09/11/17 00:34 97.0 69 20 104/85 96 Room Air 97.0 09/10/17 20:41 208.8 85 18 99 09/10/17 20:39 208.8 86 18 100 09/10/17 20:06 96.8 79 19 120/80 96 Room Air 96.8 09/10/17 16:00 97.7 72 18 118/72 99 Room Air 97.7 Intake and Output 09/10/17 09/11/17 19:00 07:00 Intake Total 300 ml 900 ml Balance 300 ml 900 ml IV Total 300 ml 900 ml # Voids 2 1 # Bowel Movements 1 Laboratory Tests Test 09/11/17 06:40 White Blood Count 4.3 K/UL (4.8-10.8) L Red Blood Count 2.83 M/UL (4.70-6.10) L Hemoglobin 9.1 G/DL (14.2-18.0) L Hematocrit 29.3 % (42.0-52.0) L Mean Corpuscular Volume 104 FL (80-99) H Mean Corpuscular Hemoglobin 32.1 PG (27.0-31.0) H Mean Corpuscular Hemoglobin Concent 31.0 G/DL (32.0-36.0) L Red Cell Distribution Width 18.1 % (11.6-14.8) H Platelet Count 169 K/UL (150-450) Mean Platelet Volume 7.0 FL (6.5-10.1) Neutrophils (%) (Auto) 49.2 % (45.0-75.0) Lymphocytes (%) (Auto) 33.2 % (20.0-45.0) Monocytes (%) (Auto) 12.0 % (1.0-10.0) H Eosinophils (%) (Auto) 4.3 % (0.0-3.0) H Basophils (%) (Auto) 1.4 % (0.0-2.0) Sodium Level 141 MMOL/L (136-145) Potassium Level 4.0 MMOL/L (3.5-5.1) Chloride Level 108 MMOL/L (98-107) H Carbon Dioxide Level 23 MMOL/L (21-32) Anion Gap 10 mmol/L (5-15) Blood Urea Nitrogen 7 mg/dL (7-18) Creatinine 1.1 MG/DL (0.55-1.30) Estimat Glomerular Filtration Rate > 60 mL/min (>60) Glucose Level 112 MG/DL (74-106) H Calcium Level 9.1 MG/DL (8.5-10.1) Total Bilirubin 0.2 MG/DL (0.2-1.0) Aspartate Amino Transf (AST/SGOT) 19 U/L (15-37) Alanine Aminotransferase (ALT/SGPT) 21 U/L (12-78) Alkaline Phosphatase 73 U/L (46-116) Total Protein 5.6 G/DL (6.4-8.2) L Albumin 3.0 G/DL (3.4-5.0) L Globulin 2.6 g/dL Albumin/Globulin Ratio 1.2 (1.0-2.7) Triglycerides Level 87 MG/DL (30-150) Cholesterol Level 171 MG/DL (< 200) LDL Cholesterol 59 mg/dL (<100) HDL Cholesterol 89 MG/DL (40-60) H Cholesterol/HDL Ratio 1.9 (3.3-4.4) L Amylase Level 163 U/L (25-115) H Lipase 1779 U/L (73-393) H CA 19-9 Antigen Pending Anti-Nuclear Antibody Screen Pending SmRNP Antibodies Pending Height (Feet): 5 Height (Inches): 5.00 Weight (Pounds): 144 General Appearance: WD/WN, no apparent distress, alert Cardiovascular: normal rate Respiratory/Chest: normal breath sounds, no respiratory distress Abdominal Exam: normal bowel sounds, non tender, soft Extremities: normal range of motion, non-tender Jim Cristina NP Sep 11, 2017 13:38
--- NOTE | 2017-09-11 13:49 | General Progress Note ---
Assessment/Plan Problem List: (1) Weak ICD Codes: R53.1 - Weakness SNOMED: 88401767 (2) Diarrhea ICD Codes: R19.7 - Diarrhea, unspecified SNOMED: 25015209 (3) Dehydration ICD Codes: E86.0 - Dehydration SNOMED: 63424099 (4) Dizziness ICD Codes: R42 - Dizziness and giddiness SNOMED: 241184995, 102016877 (5) Thrombosis ICD Codes: I82.90 - Acute embolism and thrombosis of unspecified vein SNOMED: 699399347 Status: stable, progressing Assessment/Plan ot pt diet abx ivf dc w hh if clear Subjective Constitutional: Reports: weakness Allergies: Coded Allergies: PENICILLINS (Unverified Allergy, Unknown, 04/03/14) All Systems: reviewed and negative except above Subjective calm in room, wants to go home Objective Last 24 Hour Vital Signs Date Time Temp Pulse Resp B/P (MAP) Pulse Ox O2 Delivery O2 Flow Rate FiO2 09/11/17 12:00 98.4 77 18 110/68 95 Room Air 98.4 09/11/17 08:27 81 119/74 09/11/17 08:00 98.1 81 17 119/79 99 Room Air 98.1 09/11/17 04:17 97.7 73 19 115/76 97 Room Air 97.7 09/11/17 00:34 97.0 69 20 104/85 96 Room Air 97.0 09/10/17 20:41 208.8 85 18 99 09/10/17 20:39 208.8 86 18 100 09/10/17 20:06 96.8 79 19 120/80 96 Room Air 96.8 09/10/17 16:00 97.7 72 18 118/72 99 Room Air 97.7 Intake and Output 09/10/17 09/11/17 19:00 07:00 Intake Total 300 ml 900 ml Balance 300 ml 900 ml IV Total 300 ml 900 ml # Voids 2 1 # Bowel Movements 1 Laboratory Tests 09/11/17 06:40: White Blood Count 4.3L, Red Blood Count 2.83L, Hemoglobin 9.1L, Hematocrit 29.3L , Mean Corpuscular Volume 104H, Mean Corpuscular Hemoglobin 32.1H, Mean Corpuscular Hemoglobin Concent 31.0L, Red Cell Distribution Width 18.1H, Platelet Count 169, Mean Platelet Volume 7.0, Neutrophils (%) (Auto) 49.2, Lymphocytes (%) (Auto) 33.2, Monocytes (%) (Auto) 12.0H, Eosinophils (%) (Auto) 4.3H, Basophils (%) (Auto) 1.4, Sodium Level 141, Potassium Level 4.0, Chloride Level 108H, Carbon Dioxide Level 23, Anion Gap 10, Blood Urea Nitrogen 7, Creatinine 1.1, Estimat Glomerular Filtration Rate > 60, Glucose Level 112H, Calcium Level 9.1, Total Bilirubin 0.2, Aspartate Amino Transf (AST/SGOT) 19, Alanine Aminotransferase (ALT/SGPT) 21, Alkaline Phosphatase 73, Total Protein 5.6L, Albumin 3.0L, Globulin 2.6, Albumin/Globulin Ratio 1.2, Triglycerides Level 87, Cholesterol Level 171, LDL Cholesterol 59, HDL Cholesterol 89H, Cholesterol/HDL Ratio 1.9L, Amylase Level 163H, Lipase 1779H, CA 19-9 Antigen [ Pending], Anti-Nuclear Antibody Screen [Pending], SmRNP Antibodies [Pending] Height (Feet): 5 Height (Inches): 5.00 Weight (Pounds): 144 General Appearance: alert EENT: normal ENT inspection Neck: normal alignment Cardiovascular: normal peripheral pulses, normal rate, regular rhythm Respiratory/Chest: chest wall non-tender, lungs clear, normal breath sounds Abdomen: normal bowel sounds, non tender, soft Extremities: normal inspection Edema: no edema noted Arm (L), no edema noted Arm (R), no edema noted Leg (L), no edema noted Leg (R), no edema noted Pedal (L), no edema noted Pedal (R), no edema noted Generalized Neurologic: responsive, motor weakness Skin: normal pigmentation, warm/dry Romel Marshall DO Sep 11, 2017 13:49
--- NOTE | 2017-09-11 14:27 | General Progress Note ---
Assessment/Plan Status: stable, progressing Assessment/Plan Anxiety d/o -Ativan 1mg q6hr prn -provided ro/st Subjective Date patient seen: Sep 11, 2017 Neurologic/Psychiatric: Reports: anxiety, depressed, emotional problems Allergies: Coded Allergies: PENICILLINS (Unverified Allergy, Unknown, 04/03/14) Objective Last 24 Hour Vital Signs Date Time Temp Pulse Resp B/P (MAP) Pulse Ox O2 Delivery O2 Flow Rate FiO2 09/11/17 12:00 98.4 77 18 110/68 95 Room Air 98.4 09/11/17 08:27 81 119/74 09/11/17 08:00 98.1 81 17 119/79 99 Room Air 98.1 09/11/17 04:17 97.7 73 19 115/76 97 Room Air 97.7 09/11/17 00:34 97.0 69 20 104/85 96 Room Air 97.0 09/10/17 20:41 208.8 85 18 99 09/10/17 20:39 208.8 86 18 100 09/10/17 20:06 96.8 79 19 120/80 96 Room Air 96.8 09/10/17 16:00 97.7 72 18 118/72 99 Room Air 97.7 Intake and Output 09/10/17 09/11/17 19:00 07:00 Intake Total 300 ml 900 ml Balance 300 ml 900 ml IV Total 300 ml 900 ml # Voids 2 1 # Bowel Movements 1 Laboratory Tests 09/11/17 06:40: White Blood Count 4.3L, Red Blood Count 2.83L, Hemoglobin 9.1L, Hematocrit 29.3L , Mean Corpuscular Volume 104H, Mean Corpuscular Hemoglobin 32.1H, Mean Corpuscular Hemoglobin Concent 31.0L, Red Cell Distribution Width 18.1H, Platelet Count 169, Mean Platelet Volume 7.0, Neutrophils (%) (Auto) 49.2, Lymphocytes (%) (Auto) 33.2, Monocytes (%) (Auto) 12.0H, Eosinophils (%) (Auto) 4.3H, Basophils (%) (Auto) 1.4, Sodium Level 141, Potassium Level 4.0, Chloride Level 108H, Carbon Dioxide Level 23, Anion Gap 10, Blood Urea Nitrogen 7, Creatinine 1.1, Estimat Glomerular Filtration Rate > 60, Glucose Level 112H, Calcium Level 9.1, Total Bilirubin 0.2, Aspartate Amino Transf (AST/SGOT) 19, Alanine Aminotransferase (ALT/SGPT) 21, Alkaline Phosphatase 73, Total Protein 5.6L, Albumin 3.0L, Globulin 2.6, Albumin/Globulin Ratio 1.2, Triglycerides Level 87, Cholesterol Level 171, LDL Cholesterol 59, HDL Cholesterol 89H, Cholesterol/HDL Ratio 1.9L, Amylase Level 163H, Lipase 1779H, CA 19-9 Antigen [ Pending], Immunoglobulin G [Pending], Immunoglobulin G1 [Pending], Immunoglobulin G2 [Pending], Immunoglobulin G3 [Pending], Immunoglobulin G4 [ Pending], Anti-Nuclear Antibody Screen [Pending], SmRNP Antibodies [Pending] Height (Feet): 5 Height (Inches): 5.00 Weight (Pounds): 144 General Appearance: no apparent distress, alert Neurologic: oriented x 3, responsive, depressed affect Sudhakar Chao M.D. Sep 11, 2017 14:27
--- NOTE | 2017-09-14 13:18 | Discharge Summary ---
Discharge Summary Hospital Course Date of Admission Sep 07, 2017 at 21:16 Date of Discharge Sep 11, 2017 at 16:42 Admitting Diagnosis DIZZINESS,HYPONATREMIA,DEHYDRATION HPI Joe Mims is a 72 year old male who was admitted on Sep 07, 2017 at 21:16 for Dizziness/Hyponatremia/Dehydration Hospital Course dc summary #[id number] Discharge Medications Continued Medications: Famotidine (Pepcid) 20 Mg Tablet 20 MG ORAL BEDTIME, #7 TAB 0 Refills Folic Acid* (Folic Acid*) 1 Mg Tablet 1 MG ORAL DAILY, #10 TAB (This prescription has been renewed) Lisinopril* (Lisinopril*) 10 Mg Tablet 10 MG ORAL DAILY, #30 TAB (This prescription has been renewed) Lorazepam* (Lorazepam*) 0.5 Mg Tablet 0.5 MG ORAL THREE TIMES A DAY, TAB Metoprolol Succinate* (Metoprolol Succinate*) 25 Mg Tab.er.24h 25 MG PO DAILY (This prescription has been renewed) Multivitamin (Multivitamins) 1 Each Tablet 1 EACH PO, TAB (This prescription has been renewed) Nevirapine (Viramune Xr) 400 Mg Tab.er.24h 400 MG PO DAILY (This prescription has been renewed) Raltegravir (Isentress) 400 Mg Tab 400 MG ORAL EVERY 12 HOURS, TAB Rosuvastatin Calcium* (Crestor*) 10 Mg Tablet 20 MG ORAL DAILY, #30 TAB (This prescription has been renewed) Discharge Condition Upon Discharge: stable Discharge Disposition Patient was discharged to Home with Home Health(06) Discharge Instructions Discharge Instructions Special Instructions I have been assigned to complete a D/C Summary on this account. I was not involved in the patient management Adelia Brewer NP Sep 14, 2017 13:18
--- NOTE | 2017-09-15 01:00 | Discharge Summary 2 SIG ---
DATE OF ADMISSION: 09/07/2017 DATE OF DISCHARGE: 09/11/2017 REASON FOR ADMISSION: 72-year-old male with past medical history significant for HIV status, high cholesterol, and hypertension, presented with complaints of dizziness, weakness, diarrhea, and vomiting. No blood in the stool or emesis. Per paramedics, first blood pressure was low. The patient was started on IV fluids. In the emergency department, the patient was tachycardic at 112, blood pressure already improved 123/72, pulse oximetry was stable on room air. Urinalysis revealed no evidence for UTI. Sodium was 130, BUN 21, and creatinine 1.5. ProBNP 24. EKG revealed sinus rhythm, no acute ischemic changes. Troponin was negative. CK within normal limits. Evidence of anemia with hemoglobin 10 and hematocrit 28.8. Chest x-ray revealed no acute cardiopulmonary pathology. EKG shoed no acute ischemic changes. The patient admitted with diagnoses of acute kidney injury, hypertension, and hyponatremia with sodium of 130, anemia, and HIV status. CONSULTANTS: 1. Life Sciences Teacher, Dr. Moyer. 2. Cook Relief, Dr. Drake. 3. Infectious Disease, Dr. Fuller. 4. Die Cleaner, Dr. Shelby. 5. GI specialist, Dr. Bermeo. 6. Psychiatrist, Dr. Chao. HOSPITAL COURSE: The patient admitted. Next day in the morning, lipase above 2000. Abdominal ultrasound revealed echogenic gallbladder, intraluminal foci probably small polyps, negative for dilated duct, and an incidental finding of left renal cyst. Brain MRI revealed chronic age-related changes, but was negative for acute intracranial bleeding, mass effect, or infarct. Echocardiogram revealed preserved ejection fraction of 65% to 70%. No evidence of pericardial effusion. Normal ventricular chamber size, systolic function, and wall motion. [id number] tricuspid regurgitation. Right ventricular systolic pressure of 45 consistent with mild pulmonary hypertension. 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 Femoral artery to femoral artery bypass graft with patency status unknown, graft probably thrombosed at least partially. Reticular infiltrate in the left upper lobe, possibly chronic. Pulmonary emphysema chronic. Focal chronic calcific pancreatitis involving the pancreatic head. Vascular Surgery consult was requested. GI closely followed due to evidence of anemia, also noted elevated CEA-9.3. The patient had undergone colonoscopy and endoscopy with biopsy with findings of gastritis, small hiatal hernia, and internal hemorrhoids. Biopsy result revealed mild chronic antral gastritis. No evidence of H. pylori infection. Diet was resumed. The patient was followed up with laboratory work. The patient was able to tolerate diet. Hemoglobin and hematocrit were closely monitored with goal to keep hemoglobin above 7. Stool for occult blood was negative. GI cleared the patient for discharge. Infectious Disease doctor closely followed. Diarrhea resolved possibly due to viral gastroenteritis versus medication related. Stool culture was negative. ID specialist recommended to keep the patient off antibiotic and observe closely. T-cell subsets revealed stable CD4 of 462. Continue current regimen with HAART therapy. Life Sciences Teacher closely followed. Echocardiogram revealed preserved ejection fraction as mentioned above. EKG revealed sinus tachycardia. Blood pressure was closely monitored and managed with beta-susanna. Statin was on hold due to elevated lipase. The patient was counseled on low-fat, low-cholesterol, cardiac diet. Cook Relief closely followed. Renal parameters and electrolytes were closely monitored. Electrolytes were corrected as needed. Nephrotoxics were avoided. Acute kidney injury resolved. Creatinine down to normal. Sonar Technician closely followed. According to education finance processor, patient likely had anemia of chronic disease. DVT and GI prophylaxis provided. Supportive care provided. Bowel regimen instituted. Psychiatrist had seen and evaluated the patient and diagnosed the patient with anxiety disorder. The patient started on anxiolytic as needed. Reality orientation and supportive therapy were provided. Initial dizziness was likely secondary to hypotension and dehydration ,and it had resolved. FINAL DIAGNOSES: 1. Intractable diarrhea, likely due to possible gastroenteritis versus medication, resolved. 2. Acute kidney injury secondary to dehydration and hypotension. 3. Possible acute tubular necrosis. 4. Acute hyponatremia. 5. HIV status. 6. 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 7. Possible partial occlusion of [id number] artery bypass graft. 8. History of hypertension. 9. Hyperlipidemia. 10. Anemia. 11. Elevated CEA. 12. Pancreatitis. 13. Mild pulmonary hypertension. 14. Status post 09/10/2017 colonoscopy and endoscopy with biopsy with findings of gastritis, small hiatal hernia, and internal hemorrhoids. 15. Anxiety disorder. DISCHARGE MEDICATIONS: See medication reconciliation list. DISCHARGE INSTRUCTIONS: The patient discharged home with home health services. The patient to follow up next week as an outpatient with primary care provider for vascular surgeon evaluation referral. Romel Marshall D.O. I have been assigned to dictate discharge summary on this account and I was not involved in the patient's management. Adelia Brewer (Vanchtein) NAnaPAna DR: NINA JOB#: [id number] CC: VEE
== END 2017-09-11 16:42 | disposition home health service (06) | DRG 682 ==
LOC: EDBD 18:23 → EMR 19:00 → EDBEDREQ 20:19 → 4W 21:16 → EDBEDREQ 21:24 → 4W 22:51 → 4E 09-08 08:07
DX: N17.0 Acute kidney failure with tubular necrosis (principal); K85.90 Acute pancreatitis without necrosis or infection, unspecified; B20 Human immunodeficiency virus [HIV] disease; I71.01 Dissection of thoracic aorta; I71.02 Dissection of abdominal aorta; E87.1 Hypo-osmolality and hyponatremia; T82.868A Thrombosis due to vascular prosthetic devices, implants and grafts, initial encounter; A08.4 Viral intestinal infection, unspecified; R19.7 Diarrhea, unspecified; T50.905A Adverse effect of unspecified drugs, medicaments and biological substances, initial encounter; R42 Dizziness and giddiness; I10 Essential (primary) hypertension; E78.5 Hyperlipidemia, unspecified; I95.9 Hypotension, unspecified; R10.9 Unspecified abdominal pain; K44.9 Diaphragmatic hernia without obstruction or gangrene; K64.8 Other hemorrhoids; E86.0 Dehydration; R97.0 Elevated carcinoembryonic antigen [CEA]; I36.1 Nonrheumatic tricuspid (valve) insufficiency; F41.9 Anxiety disorder, unspecified; I27.20 Pulmonary hypertension, unspecified; Y83.2 Surgical operation with anastomosis, bypass or graft as the cause of abnormal reaction of the patient, or of later complication, without mention of misadventure at the time of the procedure; K29.60 Other gastritis without bleeding; D63.8 Anemia in other chronic diseases classified elsewhere
CPT/HCPCS: 36415; 70551; 71045; 71260; 74177; 76700; 80048; 80053; 80061; 80307; 81001; 81003; 82150; 82270; 82378; 82550; 82553; 82607; 82746; 82784; 82787; 83540; 83550; 83615; 83690; 83735; 83880; 84100; 84133; 84300; 84484; 84550; 85007; 85025; 85044; 85060; 85610; 85651; 85730; 86039; 86235; 86360; 87045; 87324; 89050; 93005; 93306; 94003; 94150; 99285